=== PATIENT | male | born 1945 | race Caucasian/White ===

== ENCOUNTER 2018-08-08 13:27 | Inpatient (IN) | payer MEDICARE ==
[2018-08-08] MEDS ORDERED: ASPIRIN 81 MG TABLET, CHEWABLE PO ONE (13:57)
--- NOTE | 2018-08-08 13:59 | ER Document Report ---
ED General - General Mode of Arrival: Medic Information source: Patient TRAVEL OUTSIDE OF THE [place] IN LAST 30 DAYS: No <RANDALL COHEN - Last Filed: 08/08/18 15:01> <ALOK MILLAN - Last Filed: 08/08/18 20:05> - General Chief Complaint: Shortness Of Breath Stated Complaint: SHORTNESS OF BREATH Time Seen by Provider: 08/08/18 13:57 Notes: 73-year-old male who presents to the emergency department today with complaints of a 2-month history of generalized swelling with associated shortness of breath over the last 3-4 weeks. Patient states he has gained approximately 40 pounds over the last 2 months. Patient states x1 month ago he was started on Lasix and potassium. Patient states he has swelling from his feet up to his abdomen and he has noticed that his scrotum has "swollen to the size of a grapefruit". Patient states he has had diarrhea, abdominal pain, and hand swelling as well. Patient mentions that he has not had an appetite in the last few weeks. Patient denies any vomiting, cough, fevers, history of COPD or liver failure. (RANDALL COHEN) - Related Data Allergies/Adverse Reactions: amoxicillin [From Augmentin] Adverse Reaction (Mild, Verified 08/08/18 15:35) Nausea clavulanic acid [From Augmentin] Adverse Reaction (Mild, Verified 08/08/18 15:35) Nausea Past Medical History - General Information source: Patient - Social History Smoking Status: Never Smoker Cigarette use (# per day): No Frequency of alcohol use: None Drug Abuse: None Lives with: Family Family History: Reviewed & Not Pertinent - Past Medical History Cardiac Medical History: Reports: Hx Congestive Heart Failure Endocrine Medical History: Reports: Hx Diabetes Mellitus Type 2 Surgical Hx: Negative <RANDALL COHEN - Last Filed: 08/08/18 15:01> Review of Systems - Review of Systems Constitutional: denies: Fever EENT: No symptoms reported Cardiovascular: No symptoms reported Respiratory: See HPI, Short of breath. denies: Cough Gastrointestinal: See HPI, Abdominal pain, Diarrhea, Other - abdominal swelling. denies: Vomiting Genitourinary: No symptoms reported Male Genitourinary: See HPI, Other - testicular swelling Musculoskeletal: See HPI, Leg swelling, Ankle swelling, Other - hand swelling Skin: No symptoms reported Hematologic/Lymphatic: No symptoms reported Neurological/Psychological: No symptoms reported -: Yes All other systems reviewed and negative <RANDALL COHEN - Last Filed: 08/08/18 15:01> Physical Exam <RANDALL COHEN - Last Filed: 08/08/18 15:01> - Vital signs Vitals: Pulse Ox 73 L 08/08/18 13:35 - Notes Notes: PHYSICAL EXAM GENERAL: Alert, interacts well. Appears short of breath. Morbidly obese. HEAD: Normocephalic, atraumatic. EYES: Pupils equal, round, and reactive to light. Extraocular movements intact. ENT: Oral mucosa moist, tongue midline. NECK: Full range of motion. Supple. Trachea midline. LUNGS: Clear to auscultation bilaterally, no wheezes, rales, or rhonchi. No respiratory distress. Saturating at 90% via facemask on 15L of oxygen, good waveform, hypoxic per my interpretation. HEART: Very faint heart sounds due to body habitus. Regular rate and rhythm. No murmurs, gallops, or rubs. Capillary refill in the finger tips is 9 seconds, fingers are cold to the touch. ABDOMEN: Soft, mild diffuse generalized tenderness with palpation with no focal areas of increased tenderness. No caput medusea. Lower abdominal pitting edema, no upper abdomen edema. Small fluid wave. Bowel sounds present in all 4 quadrants. No guarding, rigidity, or rebound. EXTREMITIES: Moves all 4 extremities spontaneously. 4+ pitting edema to bilateral lower extremities up to the level of the knees, fluid seepage from lower extrmities bilaterally, radial and dorsalis pedis pulses 2/4 bilaterally. NEUROLOGICAL: Alert and oriented x3. Normal speech. PSYCH: Normal affect, normal mood. SKIN: Finger tips are cold to the touch, dry, normal turgor. No rashes or lesions noted. (RANDALL COHEN) Course - Laboratory Result Diagrams: 08/08/18 13:52 08/08/18 13:52 <RANDALL COHEN - Last Filed: 08/08/18 15:01> - Laboratory Result Diagrams: 08/08/18 13:52 08/08/18 13:52 <ALOK MILLAN - Last Filed: 08/08/18 20:05> - Re-evaluation Re-evalutation: 08/08/18 19:59 Patient was acutely short of breath and hypoxic and in respiratory distress on arrival, physical examination consistent with congestive heart failure, patient was placed on BiPAP and felt much better, is tolerating this well. Patient has laboratory findings consistent with acute liver failure, right-sided heart failure and septic shock, patient was given fluid boluses based off of ideal body weight of 73 kg for fluid goal of 2190 mL's. Given the fact that he was in significant congestive heart failure we did give these boluses slowly. CBC showed leukocytosis of 10.9, hemoglobin was 18.6, platelets normal at 205, INR was prolonged consistent with liver failure, venous blood gas showed acidosis with a pH of 7.21, initial laboratory studies on the chemistries showed hypokalemia with pH of 6.8 consistent with the QRS widening on his EKG, there was acute renal failure with a BUN of 63 and a creatinine of 1.96, patient's hyperkalemia is likely coming from the renal failure and the exogenous potassium he has been taking along with his Lasix, patient was treated with bicarb, calcium gluconate, glucose and insulin and fluids. Repeat BMP is pending. Lactic acid is elevated at 5.3, Zosyn was started, blood cultures were obtained, total bilirubin is 5.6, direct bilirubin is 3.2, AST and ALT are both elevated at 813 and 600 respectively, proBNP markedly elevated at 23,400. Troponin negative at 0.037. I did order a CT scan of the abdomen pelvis to look for signs of blocked bile ducts. This confirmed the pneumonia seen on CAT scan with large pleural effusion as well as anasarca and upper abdominal ascites but did not show any evidence of acute intra-abdominal pathology. Initial EKG showed widening of the QRS and other changes concerning for hyperkalemia, repeat EKG after potassium was treated has showed some narrowing of the QRS. (ALOK MILLAN) - Vital Signs Vital signs: Temp Pulse Resp BP Pulse Ox 98.4 F 18 122/86 H 97 08/08/18 18:00 08/08/18 19:01 08/08/18 19:01 08/08/18 19:00 - Laboratory Laboratory results interpreted by me: 08/08/18 08/08/18 08/08/18 13:52 13:52 13:52 WBC 10.9 H RBC 6.53 H Hgb 18.6 H Hct 58.4 H MCHC 31.9 L RDW 15.6 H Seg Neutrophils % 84.6 H Lymphocytes % 6.7 L Absolute Neutrophils 9.2 H PT 23.8 H VBG pH VBG HCO3 Sodium 134.3 L Potassium 6.8 H* Carbon Dioxide 18 L BUN 63 H Creatinine 1.96 H Est GFR ( Amer) 41 L Est GFR (Non-Af Amer) 34 L Glucose 221 H POC Glucose Lactic Acid Total Bilirubin 5.6 H Direct Bilirubin 3.2 H AST 813 H ALT 600 H NT-Pro-B Natriuret Pep Free T4 Free T3 pg/mL 08/08/18 08/08/18 08/08/18 13:52 13:52 13:52 WBC RBC Hgb Hct MCHC RDW Seg Neutrophils % Lymphocytes % Absolute Neutrophils PT VBG pH 7.21 L VBG HCO3 18.6 L Sodium Potassium Carbon Dioxide BUN Creatinine Est GFR ( Amer) Est GFR (Non-Af Amer) Glucose POC Glucose Lactic Acid 5.3 H Total Bilirubin Direct Bilirubin AST ALT NT-Pro-B Natriuret Pep Free T4 2.76 H Free T3 pg/mL 2.38 L 08/08/18 08/08/18 08/08/18 15:08 15:50 17:04 WBC RBC Hgb Hct MCHC RDW Seg Neutrophils % Lymphocytes % Absolute Neutrophils PT VBG pH VBG HCO3 Sodium Potassium Carbon Dioxide BUN Creatinine Est GFR ( Amer) Est GFR (Non-Af Amer) Glucose POC Glucose 192 H 224 H Lactic Acid Total Bilirubin Direct Bilirubin AST ALT NT-Pro-B Natriuret Pep 12774 H Free T4 Free T3 pg/mL - EKG Interpretation by Me Additional EKG results interpreted by me: 08/08/18 20:03 EKG shows sinus tachycardia at a rate of 110, first-degree AV block, interv entricular conduction delay, concerning for possible left bundle branch block, do not believe she has a STEMI, per my interpretation. 08/08/18 20:03 Repeat EKG shows sinus tachycardia at a rate of 101, QRS has narrowed, there is an interventricular conduction delay, poor R wave progression, again concerning for possible incomplete left bundle branch block, no STEMI per my interpretation. (ALOK MILLAN) Discharge <RANDALL COHEN - Last Filed: 08/08/18 15:01> - Discharge Admitting Provider: Hospitalist - [facility] Unit Admitted: [facility] <ALOK MILLAN - Last Filed: 08/08/18 20:05> - Discharge Clinical Impression: Acute respiratory failure with hypoxia, Hyperkalemia Congestive heart failure Qualifiers: Heart failure type: right-sided Heart failure chronicity: acute Qualified Code(s): I50.811 - Acute right heart failure Liver failure without hepatic coma Qualifiers: Liver failure chronicity: acute Qualified Code(s): K72.00 - Acute and subacute hepatic failure without coma Acute renal failure Qualifiers: Acute renal failure type: unspecified Qualified Code(s): N17.9 - Acute kidney failure, unspecified Left lower lobe pneumonia Qualifiers: Pneumonia type: due to unspecified organism Qualified Code(s): J18.1 - Lobar pneumonia, unspecified organism Sepsis Qualifiers: Sepsis type: sepsis due to unspecified organism Qualified Code(s): A41.9 - Sepsis, unspecified organism Condition: Serious Disposition: ADMITTED INPATIENT Scribe Attestation: 08/08/18 20:04 I personally performed the services described in the documentation, reviewed and edited the documentation which was dictated to the scribe in my presence, and it accurately records my words and actions. (ALOK MILLAN) Scribe Documentation - Scribe Written by Pepe:: Pepe Noriega, 08/08/2018 1525 acting as scribe for :: Yonatan <RANDALL COHEN - Last Filed: 08/08/18 15:01> Sepsis - Sepsis Documentation Sepsis Patient: Yes - Vital Signs Interpretation: Bradycardic, Other - Heart rate is bradycardic at a rate of 46. - Cardiovascular Peripheral Pulse Strength: Weak Capillary refill: > 3 seconds - 6 seconds Rhythm: Regular Heart Sounds: Normal auscultation - Respiratory Breath Sounds: Crackle Respiratory Status: Respiratory distress - Skin Skin Color: Normal <ALOK MILLAN - Last Filed: 08/08/18 20:05> - Vital Signs Vitals: Temp Pulse Resp BP Pulse Ox 98.4 F 18 122/86 H 97 08/08/18 18:00 08/08/18 19:01 08/08/18 19:01 08/08/18 19:00
[2018-08-08 14:18] LABS: ABSOLUTE LYMPHOCYTES (AUTO) 0.7 10^3/uL (0.5-4.7); ABSOLUTE MONOCYTES (AUTO) 0.9 10^3/uL (0.1-1.4); ABSOLUTE NEUT (AUTO) 9.2 10^3/uL (1.7-8.2); BASOPHILS % (AUTO) 0.2 % (0-2); HEMOGLOBIN 18.6 g/dL (13.5-17.0); LYMPHOCYTES % (AUTO) 6.7 % (13-45); MEAN CORPUSCULAR HEMOGLOBIN 28.5 pg (27.0-33.4); MEAN CORPUSCULAR HGB CONC 31.9 g/dL (32.0-36.0); MEAN CORPUSCULAR VOLUME 90 fl (80-97); MONOCYTES % (AUTO) 8.5 % (3-13); PLATELET COUNT 205 10^3/uL (150-450); RED BLOOD COUNT 6.53 10^6/uL (4.35-5.55); RED CELL DISTRIBUTION WIDTH 15.6 % (11.5-14.0); SEGMENTED NEUTROPHILS % (AUTO) 84.6 % (42-78); TOTAL CELLS COUNTED % (AUTO) 100 %; WHITE BLOOD COUNT 10.9 10^3/uL (4.0-10.5)
[2018-08-08 14:19] LABS: HEMATOCRIT 58.4 % (37.9-51.0); VENOUS BLOOD BASE EXCESS -9.4 mmol/L; VENOUS BLOOD HCO3 18.6 mmol/L (20-32); VENOUS BLOOD PCO2 47.4 mmHg (35-63); VENOUS BLOOD PH 7.21 (7.30-7.42)
[2018-08-08 14:28] LABS: ALANINE AMINOTRANSFERASE 600 U/L (21-72); ALBUMIN 3.9 g/dL (3.5-5.0); ALKALINE PHOSPHATASE 92 U/L (38-126); ANION GAP 18 (5-19); BILIRUBIN,DIRECT 3.2 mg/dL (0.0-0.4); BILIRUBIN,TOTAL 5.6 mg/dL (0.2-1.3); BLOOD UREA NITROGEN 63 mg/dL (7-20); CALCIUM 9.3 mg/dL (8.4-10.2); CARBON DIOXIDE 18 mmol/L (22-30); CHLORIDE 98 mmol/L (98-107); CREATINE KINASE 85 U/L (55-170); GLUCOSE 221 mg/dL (75-110); SODIUM 134.3 mmol/L (137-145)
[2018-08-08 14:36] LABS: ASPARTATE AMINO TRANSFERASE 813 U/L (17-59)
[2018-08-08 14:37] LABS: POTASSIUM 6.8 mmol/L (3.6-5.0)
[2018-08-08] MEDS ORDERED: CALCIUM GLUCONATE 1000 MG/10 ML INJ IV ONE ×2 (14:40→23:09)
[2018-08-08] MEDS ORDERED: PIPERACILLIN/TAZOBACTAM 3.375 GM VIAL IV ONE (14:41)
[2018-08-08] MEDS ORDERED: SODIUM BICARBONATE 8.4% INJ 50 MEQ/50 ML DISP.SYRIN IV ONE (14:41)
[2018-08-08] MEDS ORDERED: DEXTROSE 10%-WATER 1,000 ML IV ONE (14:41)
[2018-08-08] MEDS ORDERED: INSULIN REG, HUMAN 100 UNIT/ML 3 ML VIAL (PYX) SUBCUT ONE (14:41)
[2018-08-08] MEDS ORDERED: DEXTROSE 5%-NORMAL SALINE 1,000 ML IV ONE (14:42)
[2018-08-08 14:45] LABS: FREE T4 (FREE THYROXINE) 2.76 ng/dL (0.78-2.19)
[2018-08-08 14:46] LABS: FREE T3 2.38 pg/mL (2.77-5.27)
[2018-08-08 14:47] LABS: TROPONIN I 0.037 ng/mL
--- NOTE | 2018-08-08 14:52 | RADIOLOGY REPORT (SQ) ---
EXAM DESCRIPTION: CHEST SINGLE VIEW COMPLETED DATE/TIME: 08/08/2018 2:43 pm REASON FOR STUDY: SOB, hypoxia COMPARISON: None. EXAM PARAMETERS: NUMBER OF VIEWS: One view. TECHNIQUE: Single frontal radiographic view of the chest acquired. RADIATION DOSE: NA LIMITATIONS: None. FINDINGS: LUNGS AND PLEURA: Moderate left pleural effusion with associated atelectasis or consolidat ion. MEDIASTINUM AND HILAR STRUCTURES: No masses. Contour normal. HEART AND VASCULAR STRUCTURES: Cardiomegaly. BONES: No acute findings. HARDWARE: None in the chest. OTHER: No other significant finding. IMPRESSION: 1. Moderate left pleural effusion with associated atelectasis or consolidation. Underly ing mass is not excluded. Consider CT if further evaluate as indicated by clinical concern. [place] [facility] [place] if infection is the primary differential consideration, recommend follow-up radiographs in 6 to 8 weeks to ensure complete resolution. 2. Cardiomegaly. TECHNICAL DOCUMENTATION: JOB ID: [id number] [employer]- All Rights Reserved Reading location - IP/workstation name: [email or web address]
[2018-08-08 14:58] LABS: THYROID STIMULATING HORMONE 3.16 uIU/mL (0.47-4.68)
[2018-08-08 16:10] LABS: INTERNATIONAL RATION (INR) 2.01; PROTHROMBIN TIME 23.8 SEC (11.4-15.4)
[2018-08-08] MEDS ORDERED: SODIUM POLYSTYRENE SULFONATE 15 GM/60 ML PO ONE ×2 (16:44→19:58)
--- NOTE | 2018-08-08 17:53 | RADIOLOGY REPORT (SQ) ---
EXAM DESCRIPTION: CT ABD/PELVIS WITH IV ONLY COMPLETED DATE/TIME: 08/08/2018 5:40 pm REASON FOR STUDY: elevated LFTs, sepsis, no source COMPARISON: None. TECHNIQUE: CT scan of the abdomen and pelvis performed using helical scanning technique with dynamic intravenous contrast injection. No oral contrast. Images reviewed with lung, soft tissue, and bone windows. Reconstructed coronal and sagittal MPR images reviewed. Delayed images for evaluation of the urinary system also acquired. All images stored on PACS. All CT scanners at this facility use dose modulation, iterative reconstruction, and/or weight based d osing when appropriate to reduce radiation dose to as low as reasonably achievable (ALARA). [facility]: Dose Right [facility]: CareDose [facility]: Dose Right [facility]: Teradose 4D [facility]: [employer] CONTRAST TYPE AND DOSE: contrast/concentration: Isovue 300.00 mg/ml; Total Contrast Delivered: 98.0 ml; Total Saline Delivered: 69.0 ml RENAL FUNCTION: Creatinine 1.96 RADIATION DOSE: CT Rad equipment meets quality standard of care and radiation dose reduction techniq ues were employed. CTDIvol: 21.1 mGy. DLP: 2796 mGy-cm.. LIMITATIONS: None. FINDINGS: LOWER CHEST: Large bilateral pleural effusions. LIVER: Normal size. No masses. No dilated ducts. Portal vein, splenic vein, IMV with minimal contra st. SPLEEN: Normal size. No focal lesions. PANCREAS: No masses. No significant calcifications. No adjacent inflammation or peripancreatic fluid collections. Pancreatic duct not dilated. GALLBLADDER: No identified stones by CT criteria. No inflammatory changes to suggest cholecystitis. ADRENAL GLANDS: No significant masses or asymmetry. RIGHT KIDNEY AND URETER: No solid masses. No significant calcifications. No hydronephrosis or hyd roureter. LEFT KIDNEY AND URETER: No solid masses. No significant calcifications. No hydronephrosis or hydr oureter. AORTA AND VESSELS: No aneurysm. No dissection. Renal arteries, SMA, celiac without stenosis. RETROPERITONEUM: No retroperitoneal adenopathy, hemorrhage or masses. BOWEL AND PERITONEAL CAVITY: No inflammatory changes. Mild predominantly upper abdominal ascites. APPENDIX: Not visualized. PELVIS: No mass. No free fluid. Normal bladder. ABDOMINAL WALL: Marked anasarca. BONES: Degenerative change OTHER: No other significant finding. IMPRESSION: Large bilateral pleural effusions. Upper abdominal ascites. Marked anasarca. Minimal contrast seen in the portal vein, SMV, splenic vein. Possibly related to timing and right he art failure. TECHNICAL DOCUMENTATION: JOB ID: [id number] Quality ID # [id number]: Final reports with documentation of one or more dose reduction techniques (e.g., Au tomated exposure control, adjustment of the mA and/or kV according to patient size, use of iterative reconstruction technique) 2010 [employer]- All Rights Reserved Reading location - IP/workstation name: [email or web address]
--- NOTE | 2018-08-08 18:09 | EKG REPORT ---
SEVERITY:- ABNORMAL ECG - WIDE COMPLEX TACHYCARDIA NONSPECIFIC IVCD WITH LAD : Confirmed by: Skinny Dang MD 08-Aug-2018 18:08:43
--- NOTE | 2018-08-08 18:11 | EKG REPORT ---
SEVERITY:- ABNORMAL ECG - SINUS TACHYCARDIA FIRST DEGREE AV BLOCK NONSPECIFIC INTRAVENTRICULAR CONDUCTION DELAY EXTENSIVE ANTERIOR INFARCT, AGE UNDETERMINED, NO OLD EKG FOR COMPARISON, CLINICAL CORRELATION NEEDED. : Confirmed by: Skinny aDng MD 08-Aug-2018 18:10:11
[2018-08-08] MEDS ORDERED: ACETAMINOPHEN 325 MG TABLET PO PRN (19:02)
[2018-08-08] MEDS ORDERED: ALBUTEROL SULFATE 0.083% NEB 2.5 MG/3 ML AMPUL NEB PRN (19:02)
[2018-08-08] MEDS ORDERED: DEXTROSE 50%-WATER 25 GM/50 ML DISP.SYRIN IV PRN ×2 (19:36)
[2018-08-08] MEDS ORDERED: DEXTROSE 40% GEL 15 GM TUBE PO PRN ×2 (19:36)
[2018-08-08] MEDS ORDERED: GLUCAGON,HUMAN RECOMB 1 MG INJ IM PRN (19:36)
[2018-08-08] MEDS ORDERED: CALCIUM GLUCONATE 1,000 MG in DEXTROSE 5%-WATER 50 ML IV ONE (19:58)
[2018-08-08] MEDS ORDERED: FUROSEMIDE INJ/PF 40 MG/4 ML SDV IV ONE (20:00)
--- NOTE | 2018-08-08 20:09 | PDOC H&P ---
History of Present Illness Admission Date/PCP: JOAQUIN GOTTLIEB MD Patient complains of: Worsening shortness of breath. Marked weight gain with increased swelling over the last several months History of Present Illness: RONALDO GALVAN is a 73 year old male who reports that he has noticed slowly increasing edema and worsening of his breathing over the last 6-8 weeks. He reports a 30-40 pound weight gain over the same period. His legs weep fluid. They are slightly reddened. He has pitting edema up into the torso. He denies any history of cardiac disease. He is on Lasix for hypertension and diuretic therapy. He has never been told of a diagnosis of congestive heart failure. In addition he has never been told that he has any problems with his liver or kidneys. He has acute failure of both. In general he has been slowly feeling more poorly as noted above. Past Medical History Cardiac Medical History: Reports: Congestive Heart Failure, Peripheral Vascular Disease - Likely related to diabetes. Right hallux amputation. Pulmonary Medical History: Denies: Chronic Obstructive Pulmonary Disease (COPD), Intubation, Respiratory Failure, Sleep Apnea EENT Medical History: Denies: Cataracts, Ears, Nose Neurological Medical History: Denies: Hemorrhagic CVA, Ischemic CVA, Migraine Endocrine Medical History: Reports: Diabetes Mellitus Type 2 Malignancy Medical History: Reports: None GI Medical History: Denies: Cirrhosis, Diverticulitis, Gastroesophageal Reflux Disease, Hepatitis, Hiatal Hernia Musculoskeltal Medical History: Denies: Fibromyalgia, Gout Skin Medical History: Reports: Other - Chronic stasis dermatitis lower extremities Denies: Psoriasis Psychiatric Medical History: Reports: Depression Traumatic Medical History: Reports: None Hematology: Reports: None Infectious Medical History: Reports: None Past Surgical History Past Surgical History: Reports: Orthopedic Surgery - Amputation right hallux Social History Information Source: Patient Lives with: Family, Spouse/Significant other Smoking Status: Never Smoker Frequency of Alcohol Use: Occasional Hx Recreational Drug Use: No Drugs: None Hx Prescription Drug Abuse: No Past Social History Note: Retired - [employer] Directive Resuscitation Status: Full Code Surrogate healthcare decision maker:: Although the patient does not have formal healthcare proxy paperwork filed his Joselo Galvan is the designated decision maker in the event of the patient's incapacity. Family History Family History: Reviewed & Not Pertinent Parental Family History Reviewed: Yes - Patient is adopted and does not know any parental medical history Children Family History Reviewed: NA - 1 adopted son Sibling(s) Family History Reviewed.: NA - No known siblings Medication/Allergy Allergies/Adverse Reactions: amoxicillin [From Augmentin] Adverse Reaction (Mild, Verified 08/08/18 15:35) Nausea clavulanic acid [From Augmentin] Adverse Reaction (Mild, Verified 08/08/18 15:35) Nausea Review of Systems Constitutional: PRESENT: as per HPI Eyes: ABSENT: visual disturbances Ears: ABSENT: hearing changes Nose, Mouth, and Throat: ABSENT: headache(s), mouth pain, sore throat Cardiovascular: PRESENT: dyspnea on exertion, edema, orthropnea, other - Both legs weeping fluid. ABSENT: chest pain Respiratory: PRESENT: dyspnea. ABSENT: cough, hemoptysis, sputum Gastrointestinal: PRESENT: diarrhea - Occasional. ABSENT: abdominal pain, coffee ground emesis, nausea, vomiting Genitourinary: ABSENT: dysuria, hematuria, nocturia Integumentary: PRESENT: rash - Chronic stasis dermatitis Neurological: ABSENT: abnormal gait, abnormal speech, confusion, memory loss, syncope Psychiatric: PRESENT: as per HPI Endocrine: PRESENT: other - Diabetes Hematologic/Lymphatic: ABSENT: easy bleeding, easy bruising Allergic/Immunologic: ABSENT: seasonal rhinorrhea Physical Exam Vital Signs: Temp Pulse Resp BP Pulse Ox 98.4 F 18 122/86 H 97 08/08/18 18:00 08/08/18 19:01 08/08/18 19:01 08/08/18 19:00 Intake & Output 08/07/18 08/08/18 08/09/18 06:59 06:59 06:59 Intake Total 792 Balance 792 Weight 142.882 kg General appearance: PRESENT: cooperative, morbidly obese - BMI 45, well- developed, other - Moderate respiratory distress. Wearing BiPAP. Head exam: PRESENT: atraumatic, normocephalic Eye exam: PRESENT: conjunctiva pink, EOMI, scleral icterus Ear exam: PRESENT: normal external ear exam Mouth exam: PRESENT: other - Unable to assess on BiPAP Teeth exam: PRESENT: other - Unable to assess on BiPAP Throat exam: PRESENT: other - Unable to assess on BiPAP Neck exam: ABSENT: carotid bruit, lymphadenopathy, tenderness Respiratory exam: PRESENT: decreased breath sounds, symmetrical. ABSENT: accessory muscle use, prolonged expiratory phas, rhonchi, wheezes Cardiovascular exam: PRESENT: RRR, +S1, +S2 GI/Abdominal exam: PRESENT: distended - Markedly protuberant abdomen, normal bowel sounds, soft. ABSENT: guarding, tenderness Extremities exam: PRESENT: +2 edema - Through the torso Neurological exam: PRESENT: alert, awake, oriented to person, oriented to place, oriented to time, oriented to situation, CN II-XII grossly intact Psychiatric exam: PRESENT: appropriate affect, normal mood. ABSENT: agitated, anxious Focused psych exam: ABSENT: restlessness Skin exam: PRESENT: erythema, other - Weeping Results Laboratory Results: 08/08/18 13:52 08/08/18 18:05 08/08/18 08/08/18 08/08/18 13:52 13:52 13:52 WBC 10.9 H RBC 6.53 H Hgb 18.6 H Hct 58.4 H MCV 90 MCH 28.5 MCHC 31.9 L RDW 15.6 H Plt Count 205 Seg Neutrophils % 84.6 H Lymphocytes % 6.7 L Monocytes % 8.5 Eosinophils % 0.0 Basophils % 0.2 Absolute Neutrophils 9.2 H Absolute Lymphocytes 0.7 Absolute Monocytes 0.9 Absolute Eosinophils 0.0 Absolute Basophils 0.0 VBG pH VBG pCO2 VBG HCO3 VBG Base Excess Sodium 134.3 L Potassium 6.8 H* Chloride 98 Carbon Dioxide 18 L Anion Gap 18 BUN 63 H Creatinine 1.96 H Est GFR ( Amer) 41 L Est GFR (Non-Af Amer) 34 L Glucose 221 H Lactic Acid 5.3 H Calcium 9.3 Total Bilirubin 5.6 H AST 813 H ALT 600 H Alkaline Phosphatase 92 Total Protein 7.0 Albumin 3.9 TSH Free T4 Free T3 pg/mL 08/08/18 08/08/18 08/08/18 13:52 13:52 15:50 WBC RBC Hgb Hct MCV MCH MCHC RDW Plt Count Seg Neutrophils % Lymphocytes % Monocytes % Eosinophils % Basophils % Absolute Neutrophils Absolute Lymphocytes Absolute Monocytes Absolute Eosinophils Absolute Basophils VBG pH 7.21 L VBG pCO2 47.4 VBG HCO3 18.6 L VBG Base Excess -9.4 Sodium Cancelled Potassium Cancelled Chloride Cancelled Carbon Dioxide Cancelled Anion Gap Cancelled BUN Cancelled Creatinine Cancelled Est GFR ( Amer) Cancelled Est GFR (Non-Af Amer) Cancelled Glucose Cancelled Lactic Acid Calcium Cancelled Total Bilirubin AST ALT Alkaline Phosphatase Total Protein Albumin TSH 3.16 Free T4 2.76 H Free T3 pg/mL 2.38 L 08/08/18 18:05 WBC RBC Hgb Hct MCV MCH MCHC RDW Plt Count Seg Neutrophils % Lymphocytes % Monocytes % Eosinophils % Basophils % Absolute Neutrophils Absolute Lymphocytes Absolute Monocytes Absolute Eosinophils Absolute Basophils VBG pH VBG pCO2 VBG HCO3 VBG Base Excess Sodium Cancelled Potassium Cancelled Chloride Cancelled Carbon Dioxide Cancelled Anion Gap Cancelled BUN Cancelled Creatinine Cancelled Est GFR ( Amer) Cancelled Est GFR (Non-Af Amer) Cancelled Glucose Cancelled Lactic Acid Calcium Cancelled Total Bilirubin AST ALT Alkaline Phosphatase Total Protein Albumin TSH Free T4 Free T3 pg/mL 08/08/18 08/08/18 08/08/18 13:52 13:52 15:50 Creatine Kinase 85 CK-MB (CK-2) 3.00 Troponin I 0.037 NT-Pro-B Natriuret Pep [id number] H Impressions: Chest X-Ray 08/08/18 13:58 IMPRESSION: 1. Moderate left pleural effusion with associated atelectasis or consolidation. Underlying mass is not excluded. Consider CT if further evaluate as indicated by clinical concern. At minimum, if infection is the primary differential consideration, recommend follow-up radiographs in 6 to 8 weeks to ensure complete resolution. 2. Cardiomegaly. Abdomen/Pelvis CT 08/08/18 15:27 IMPRESSION: Large bilateral pleural effusions. Upper abdominal ascites. Marked anasarca. Minimal contrast seen in the portal vein, SMV, splenic vein. Possibly related to timing and right heart failure. Assessment & Plan - Diagnosis (1) Congestive heart failure Qualifiers: Heart failure type: right-sided Heart failure chronicity: acute Qualified Code(s): I50.811 - Acute right heart failure Is this a current diagnosis for this admission?: Yes Plan: The patient was unaware of her previous diagnosis of congestive heart failure. He has never had an echocardiogram. He has marked anasarca. He has bilateral pleural effusions. I will diuresis with furosemide and Zaroxolyn. We will need to monitor his kidney function. His albumin is normal so there is no need for IV albumin. I have ordered an echocardiogram to assess his cardiac function. He may have cardiomyopathy related to his diabetes. (2) Acute respiratory failure with hypoxia Is this a current diagnosis for this admission?: Yes Plan: The patient does not carry a diagnosis of chronic obstructive pulmonary disease. His acute respiratory failure required BiPAP. It is most likely cardiogenic. (3) Acute renal failure Qualifiers: Acute renal failure type: unspecified Qualified Code(s): N17.9 - Acute kidney failure, unspecified Is this a current diagnosis for this admission?: Yes Plan: The patient's BUN and creatinine are elevated. His estimated GFR is only 34. He does not report any history of kidney disease. We will need to watch his kidney function while diuresing the patient. I will consult nephrology if his GFR declines. He did have a CT scan of the abdomen. It revealed normal renal structure. (4) Liver failure without hepatic coma Qualifiers: Liver failure chronicity: acute Qualified Code(s): K72.00 - Acute and subacute hepatic failure without coma Is this a current diagnosis for this admission?: Yes Plan: The patient's transaminases and bilirubin are elevated. He reports 1 beer on Sundays. We will monitor his transaminases. He does not have a markedly elevated prothrombin time. No structural abnormality was noted by CT scan. No obstructive lesions with regard to gallbladder or pancreas. (5) Left lower lobe pneumonia Qualifiers: Pneumonia type: due to unspecified organism Qualified Code(s): J18.1 - Lobar pneumonia, unspecified organism Is this a current diagnosis for this admission?: Yes Plan: With the pleural effusion it is difficult to characterize an underlying pneumonia but it would be a possible etiology for the pleural effusion. We will continue antibiotic therapy at this time. If he does not exhibit fever or increased white blood cell count we will discontinue antibiotic therapy. He does not report a productive cough. (6) Hyperkalemia Is this a current diagnosis for this admission?: Yes Plan: The patient presented with marked hyperkalemia. He was on a potassium supplement and unaware of his kidney failure. He was treated aggressively in the emergency department with insulin and glucose, calcium and bicarbonate. Repeat labs are pending. (7) Diabetes mellitus type 2 with complications Qualifiers: Diabetes mellitus shelter insulin use: with computer terminal operator use Qualified Code(s): E11.8 - Type 2 diabetes mellitus with unspecified complications; Z79.4 - computer terminal operator (current) use of insulin Is this a current diagnosis for this admission?: Yes Plan: The patient likely has kidney injury diabetes related cardiac dysfunction. He denies peripheral vascular disease but has already had a right hallux amputation. His feet were cool to the touch. It is hard to note if it is peripheral arterial disease or more likely mixed vascular disease. He was on metformin. I have discontinued the metformin at this time. He will be placed on a Humalog sliding scale and we will continue his insulin therapy. - Time Time Spent: Greater than 70 Minutes Medications reviewed and adjusted accordingly: Yes Anticipated discharge: Home - Inpatient Certification Based on my medical assessment, after consideration of the patient's comorbidities, presenting symptoms, or acuity I expect that the services needed warrant INPATIENT care.: Yes I certify that my determination is in accordance with my understanding of Medicare's requirements for reasonable and necessary INPATIENT services [42 CFR 412.3e].: Yes Medical Necessity: Significant Comorbidiites Make Outpatient Treatment Too Risky, Need Close Monitoring Due to Risk of Patient Decompensation, Need For Continuous Telemetry Monitoring, Need for IV Antibiotics, Risk of Complication if Not Cared For in Hospital Post Hospital Care: D/C Surgical Lead Documentation
[2018-08-08 21:16] LABS: ANION GAP 9 (5-19); BLOOD UREA NITROGEN 63 mg/dL (7-20); CARBON DIOXIDE 23 mmol/L (22-30); CHLORIDE 103 mmol/L (98-107); GLUCOSE 252 mg/dL (75-110); SODIUM 134.7 mmol/L (137-145)
[2018-08-08 21:23] LABS: POTASSIUM 5.4 mmol/L (3.6-5.0)
[2018-08-09] MEDS ORDERED: SODIUM POLYSTYRENE SULFONATE 15 GM/60 ML ONE ×2 (00:02→00:16)
[2018-08-09] MEDS: FAMOTIDINE 20 MG TABLET PO SCH ×3 (00:15→21:49)
[2018-08-09 03:23] LABS: ABSOLUTE LYMPHOCYTES (AUTO) 0.6 10^3/uL (0.5-4.7); ABSOLUTE MONOCYTES (AUTO) 0.7 10^3/uL (0.1-1.4); BASOPHILS % (AUTO) 0.3 % (0-2); EOSINOPHILS % (AUTO) 0.2 % (0-6); HEMATOCRIT 50.8 % (37.9-51.0); HEMOGLOBIN 16.6 g/dL (13.5-17.0); LYMPHOCYTES % (AUTO) 7.6 % (13-45); MEAN CORPUSCULAR HEMOGLOBIN 28.7 pg (27.0-33.4); MEAN CORPUSCULAR HGB CONC 32.7 g/dL (32.0-36.0); MEAN CORPUSCULAR VOLUME 88 fl (80-97); MONOCYTES % (AUTO) 8.6 % (3-13); PLATELET COUNT 139 10^3/uL (150-450); RED CELL DISTRIBUTION WIDTH 15.1 % (11.5-14.0); SEGMENTED NEUTROPHILS % (AUTO) 83.3 % (42-78); TOTAL CELLS COUNTED % (AUTO) 100 %; WHITE BLOOD COUNT 8.4 10^3/uL (4.0-10.5)
[2018-08-09 03:50] LABS: ALANINE AMINOTRANSFERASE 684 U/L (21-72); ALBUMIN 2.6 g/dL (3.5-5.0); ALKALINE PHOSPHATASE 69 U/L (38-126); ANION GAP 10 (5-19); BILIRUBIN,TOTAL 3.5 mg/dL (0.2-1.3); BLOOD UREA NITROGEN 66 mg/dL (7-20); CALCIUM 8.6 mg/dL (8.4-10.2); CARBON DIOXIDE 20 mmol/L (22-30); CHLORIDE 106 mmol/L (98-107); CHOLESTEROL 114.91 mg/dL (0-200); GLUCOSE 241 mg/dL (75-110); PHOSPHORUS 5.6 mg/dL (2.5-4.5); POTASSIUM 5.2 mmol/L (3.6-5.0); SODIUM 135.6 mmol/L (137-145); TOTAL PROTEIN 5.2 g/dL (6.3-8.2); TRIGLYCERIDES 96 mg/dL (<150)
[2018-08-09 04:01] LABS: DIRECT LDL 99 mg/dL (<100)
[2018-08-09 04:02] LABS: ASPARTATE AMINO TRANSFERASE 992 U/L (17-59)
[2018-08-09 06:42] LABS: APPEARANCE,URINE CLEAR; BILIRUBIN,URINE NEGATIVE (NEGATIVE); GLUCOSE, URINE NEGATIVE (NEGATIVE); KETONES,URINE NEGATIVE (NEGATIVE); LEUKOCYTE ESTERASE,URINE NEGATIVE (NEGATIVE); NITRITE,URINE NEGATIVE (NEGATIVE); PROTEIN,URINE NEGATIVE (NEGATIVE); URINE SPECIFIC GRAVITY 1.019; UROBILINOGEN,URINE NEGATIVE mg/dL (<2.0)
[2018-08-09 06:43] LABS: COLOR,URINE YELLOW
--- NOTE | 2018-08-09 07:36 | EKG REPORT ---
SEVERITY:- ABNORMAL ECG - SINUS TACHYCARDIA WITH FIRST DEGREE AVB. VENTRICULAR ECTOPY NONSPECIFIC IVCD WITH LAD CONSIDER INFERIOR INFARCT EXTENSIVE ANTERIOR INFARCT, UNCHANGED FROM 08/08/18 EKG : Confirmed by: Skinny Dang MD 09-Aug-2018 07:35:56
--- NOTE | 2018-08-09 08:42 | RADIOLOGY REPORT (SQ) ---
EXAM DESCRIPTION: CHEST SINGLE VIEW COMPLETED DATE/TIME: 08/09/2018 8:25 am REASON FOR STUDY: chf COMPARISON: 08/08/2018 EXAM PARAMETERS: NUMBER OF VIEWS: One view. TECHNIQUE: Single frontal radiographic view of the chest acquired. RADIATION DOSE: NA LIMITATIONS: None. FINDINGS: LUNGS AND PLEURA: Improved aeration with decrease in the left effusion. Right lung is oralia ar. MEDIASTINUM AND HILAR STRUCTURES: No masses. Contour normal. HEART AND VASCULAR STRUCTURES: Heart enlarged. Improvement In the vascular congestion. BONES: No acute findings. HARDWARE: None in the chest. OTHER: No other significant finding. IMPRESSION: Decrease the left pleural effusion. Improvement in the vascular congestion. TECHNICAL DOCUMENTATION: JOB ID: [id number] [employer]- All Rights Reserved Reading location - IP/workstation name: [email or web address]
[2018-08-09] MEDS: INSULIN LISPRO 100 UNIT/ML 3 ML VIAL SUBCUT PRN ×4 (08:49→21:48)
[2018-08-09] MEDS: DOCUSATE SODIUM 100 MG CAPSULE PO SCH (09:10)
[2018-08-09] MEDS: METOLAZONE 2.5 MG TABLET PO SCH ×2 (09:43→17:28)
[2018-08-09] MEDS: FUROSEMIDE INJ/PF 40 MG/4 ML SDV IV SCH ×2 (09:43→17:27)
[2018-08-09] MEDS: PAROXETINE HCL 20 MG TABLET PO SCH (09:44)
[2018-08-09] MEDS ORDERED: ENOXAPARIN SODIUM INJ 40 MG/0.4 ML DISP.SYRIN SUBCUT SCH (10:00)
--- NOTE | 2018-08-09 12:03 | PDOC PROGRESS REPORT ---
Subjective Progress Note for:: 08/09/18 Subjective:: The patient is on BiPAP this morning but reports that he is feeling better. Reason For Visit: PNEUMONIA,ACUTE CONGESTIVE HEART FAILURE,ANASARCA Physical Exam Vital Signs: Temp Pulse Resp BP Pulse Ox 97.3 F 101 H 16 111/84 93 08/09/18 07:43 08/09/18 08:16 08/09/18 08:16 08/09/18 07:43 08/09/18 08:16 Intake & Output 08/08/18 08/09/18 08/10/18 06:59 06:59 06:59 Intake Total 1060 Output Total 900 Balance 160 Weight 159.8 kg General appearance: PRESENT: cooperative, mild distress, morbidly obese - BMI 50, well-developed Respiratory exam: PRESENT: decreased breath sounds - Distant breath sounds. I did not appreciate any rales, rhonchi or wheezes., symmetrical, unlabored. ABSENT: accessory muscle use, rales, rhonchi, wheezes Cardiovascular exam: PRESENT: RRR, +S1, +S2, other - Distant heart sounds possibly related to his body habitus GI/Abdominal exam: PRESENT: normal bowel sounds, soft. ABSENT: tenderness Extremities exam: PRESENT: other - Still with pitting edema to the abdomen Neurological exam: PRESENT: alert, awake, oriented to person, oriented to place, oriented to time, oriented to situation, CN II-XII grossly intact Psychiatric exam: PRESENT: appropriate affect, normal mood. ABSENT: agitated, anxious Focused psych exam: ABSENT: restlessness Results Laboratory Results: 08/09/18 03:15 08/09/18 03:15 08/08/18 08/08/18 08/08/18 13:52 13:52 13:52 WBC 10.9 H RBC 6.53 H Hgb 18.6 H Hct 58.4 H MCV 90 MCH 28.5 MCHC 31.9 L RDW 15.6 H Plt Count 205 Seg Neutrophils % 84.6 H Lymphocytes % 6.7 L Monocytes % 8.5 Eosinophils % 0.0 Basophils % 0.2 Absolute Neutrophils 9.2 H Absolute Lymphocytes 0.7 Absolute Monocytes 0.9 Absolute Eosinophils 0.0 Absolute Basophils 0.0 VBG pH VBG pCO2 VBG HCO3 VBG Base Excess Sodium 134.3 L Potassium 6.8 H* Chloride 98 Carbon Dioxide 18 L Anion Gap 18 BUN 63 H Creatinine 1.96 H Est GFR ( Amer) 41 L Est GFR (Non-Af Amer) 34 L Glucose 221 H Lactic Acid 5.3 H Calcium 9.3 Phosphorus Magnesium Total Bilirubin 5.6 H AST 813 H ALT 600 H Alkaline Phosphatase 92 Total Protein 7.0 Albumin 3.9 Triglycerides Cholesterol LDL Cholesterol Direct VLDL Cholesterol HDL Cholesterol TSH Free T4 Free T3 pg/mL Urine Color Urine Appearance Urine pH Ur Specific [place] Urine Protein Urine Glucose (UA) Urine Ketones Urine Blood Urine Nitrite Ur Leukocyte Esterase 08/08/18 08/08/18 08/08/18 13:52 13:52 15:50 WBC RBC Hgb Hct MCV MCH MCHC RDW Plt Count Seg Neutrophils % Lymphocytes % Monocytes % Eosinophils % Basophils % Absolute Neutrophils Absolute Lymphocytes Absolute Monocytes Absolute Eosinophils Absolute Basophils VBG pH 7.21 L VBG pCO2 47.4 VBG HCO3 18.6 L VBG Base Excess -9.4 Sodium Cancelled Potassium Cancelled Chloride Cancelled Carbon Dioxide Cancelled Anion Gap Cancelled BUN Cancelled Creatinine Cancelled Est GFR ( Amer) Cancelled Est GFR (Non-Af Amer) Cancelled Glucose Cancelled Lactic Acid Calcium Cancelled Phosphorus Magnesium Total Bilirubin AST ALT Alkaline Phosphatase Total Protein Albumin Triglycerides Cholesterol LDL Cholesterol Direct VLDL Cholesterol HDL Cholesterol TSH 3.16 Free T4 2.76 H Free T3 pg/mL 2.38 L Urine Color Urine Appearance Urine pH Ur Specific [place] Urine Protein Urine Glucose (UA) Urine Ketones Urine Blood Urine Nitrite Ur Leukocyte Esterase 08/08/18 08/08/18 08/08/18 18:05 20:45 20:57 WBC RBC Hgb Hct MCV MCH MCHC RDW Plt Count Seg Neutrophils % Lymphocytes % Monocytes % Eosinophils % Basophils % Absolute Neutrophils Absolute Lymphocytes Absolute Monocytes Absolute Eosinophils Absolute Basophils VBG pH VBG pCO2 VBG HCO3 VBG Base Excess Sodium Cancelled 134.7 L Potassium Cancelled 5.4 H D Chloride Cancelled 103 Carbon Dioxide Cancelled 23 Anion Gap Cancelled 9 BUN Cancelled 63 H Creatinine Cancelled 1.73 H Est GFR ( Amer) Cancelled 47 L Est GFR (Non-Af Amer) Cancelled 39 L Glucose Cancelled 252 H Lactic Acid 3.2 H Calcium Cancelled 8.0 L Phosphorus Magnesium Total Bilirubin AST ALT Alkaline Phosphatase Total Protein Albumin Triglycerides Cholesterol LDL Cholesterol Direct VLDL Cholesterol HDL Cholesterol TSH Free T4 Free T3 pg/mL Urine Color Urine Appearance Urine pH Ur Specific [place] Urine Protein Urine Glucose (UA) Urine Ketones Urine Blood Urine Nitrite Ur Leukocyte Esterase 08/09/18 08/09/18 08/09/18 03:15 03:15 06:00 WBC 8.4 RBC 5.80 H Hgb 16.6 Hct 50.8 MCV 88 MCH 28.7 MCHC 32.7 RDW 15.1 H Plt Count 139 L Seg Neutrophils % 83.3 H Lymphocytes % 7.6 L Monocytes % 8.6 Eosinophils % 0.2 Basophils % 0.3 Absolute Neutrophils 7.0 Absolute Lymphocytes 0.6 Absolute Monocytes 0.7 Absolute Eosinophils 0.0 Absolute Basophils 0.0 VBG pH VBG pCO2 VBG HCO3 VBG Base Excess Sodium 135.6 L Potassium 5.2 H Chloride 106 Carbon Dioxide 20 L Anion Gap 10 BUN 66 H Creatinine 1.70 H Est GFR ( Amer) 48 L Est GFR (Non-Af Amer) 40 L Glucose 241 H Lactic Acid Calcium 8.6 Phosphorus 5.6 H Magnesium 2.2 Total Bilirubin 3.5 H AST 992 H ALT 684 H Alkaline Phosphatase 69 Total Protein 5.2 L Albumin 2.6 L Triglycerides 96 Cholesterol 114.91 LDL Cholesterol Direct 99 VLDL Cholesterol 19.0 HDL Cholesterol 11 L TSH Free T4 Free T3 pg/mL Urine Color YELLOW Urine Appearance CLEAR Urine pH 5.0 Ur Specific [place] 1.019 Urine Protein NEGATIVE Urine Glucose (UA) NEGATIVE Urine Ketones NEGATIVE Urine Blood NEGATIVE Urine Nitrite NEGATIVE Ur Leukocyte Esterase NEGATIVE 08/08/18 08/08/18 08/08/18 13:52 13:52 15:50 Creatine Kinase 85 CK-MB (CK-2) 3.00 Troponin I 0.037 NT-Pro-B Natriuret Pep [id number] H 08/08/18 08/09/18 08/09/18 20:45 03:15 09:20 Creatine Kinase CK-MB (CK-2) Troponin I 0.036 0.045 0.031 NT-Pro-B Natriuret Pep Impressions: Abdomen/Pelvis CT 08/08/18 15:27 IMPRESSION: Large bilateral pleural effusions. Upper abdominal ascites. Marked anasarca. Minimal contrast seen in the portal vein, SMV, splenic vein. Possibly related to timing and right heart failure. Chest X-Ray 08/09/18 06:00 IMPRESSION: Decrease the left pleural effusion. Improvement in the vascular congestion. Assessment & Plan - Diagnosis (1) Congestive heart failure Qualifiers: Heart failure type: right-sided Heart failure chronicity: acute Qualified Code(s): I50.811 - Acute right heart failure Is this a current diagnosis for this admission?: Yes Plan: The patient was unaware of her previous diagnosis of congestive heart failure. He has never had an echocardiogram. One has been ordered for today. He has marked anasarca that does not show a significant improvement after the first day. He has bilateral pleural effusions but I do not know if they are large enough for thoracentesis. I will discuss with interventional radiology. Continue furosemide and Zaroxolyn. We will need to monitor his kidney function. His albumin is normal so there is no need for IV albumin. He should have his echocardiogram this morning (2) Acute respiratory failure with hypoxia Is this a current diagnosis for this admission?: Yes (3) Acute renal failure Qualifiers: Acute renal failure type: unspecified Qualified Code(s): N17.9 - Acute kidney failure, unspecified Is this a current diagnosis for this admission?: Yes Plan: CT scan of the abdomen did not reveal any renal pathology. Continue to monitor renal function and adjust medications accordingly. I will also have nephrology see the patient. He does not exhibit any significant change in the anasarca. (4) Liver failure without hepatic coma Qualifiers: Liver failure chronicity: acute Qualified Code(s): K72.00 - Acute and subacute hepatic failure without coma Is this a current diagnosis for this admission?: Yes Plan: It is possible that this is all passive congestion. His transaminases are slightly higher today. (5) Left lower lobe pneumonia Qualifiers: Pneumonia type: due to unspecified organism Qualified Code(s): J18.1 - Lobar pneumonia, unspecified organism Is this a current diagnosis for this admission?: Yes Plan: He is on antibiotic therapy. His white blood cell count is improved. Continue BiPAP. (6) Hyperkalemia Is this a current diagnosis for this admission?: Yes Plan: Potassium is normal today. Continue to monitor. (7) Diabetes mellitus type 2 with complications Qualifiers: Diabetes mellitus kohinoor operator insulin use: with kohinoor operator use Qualified Co de(s): E11.8 - Type 2 diabetes mellitus with unspecified complications; Z79.4 - FDC (current) use of insulin Is this a current diagnosis for this admission?: Yes Plan: Continue current regimen. Adjust as needed. - Time Time Spent with patient: 15-24 minutes Medications reviewed and adjusted accordingly: Yes Anticipated discharge: Home
[2018-08-10 05:44] LABS: HEMATOCRIT 47.5 % (37.9-51.0); HEMOGLOBIN 15.6 g/dL (13.5-17.0); MEAN CORPUSCULAR HEMOGLOBIN 28.6 pg (27.0-33.4); MEAN CORPUSCULAR HGB CONC 32.8 g/dL (32.0-36.0); MEAN CORPUSCULAR VOLUME 87 fl (80-97); RED BLOOD COUNT 5.45 10^6/uL (4.35-5.55); RED CELL DISTRIBUTION WIDTH 15.8 % (11.5-14.0)
[2018-08-10 05:53] LABS: ALANINE AMINOTRANSFERASE 516 U/L (21-72); ALBUMIN 2.4 g/dL (3.5-5.0); ALKALINE PHOSPHATASE 67 U/L (38-126); ANION GAP 9 (5-19); ASPARTATE AMINO TRANSFERASE 477 U/L (17-59); BILIRUBIN,DIRECT 2.8 mg/dL (0.0-0.4); BILIRUBIN,TOTAL 4.5 mg/dL (0.2-1.3); BLOOD UREA NITROGEN 62 mg/dL (7-20); CALCIUM 8.1 mg/dL (8.4-10.2); CARBON DIOXIDE 24 mmol/L (22-30); CHLORIDE 102 mmol/L (98-107); GLUCOSE 202 mg/dL (75-110); POTASSIUM 3.8 mmol/L (3.6-5.0); SODIUM 134.7 mmol/L (137-145); TOTAL PROTEIN 4.8 g/dL (6.3-8.2)
[2018-08-10 06:09] LABS: PLATELET COUNT 97 10^3/uL (150-450)
[2018-08-10] MEDS: DOCUSATE SODIUM 100 MG CAPSULE PO SCH (09:02)
[2018-08-10] MEDS: FONDAPARINUX SODIUM INJ 2.5 MG/0.5 ML DISP.SYRIN SUBCUT SCH (09:02)
[2018-08-10] MEDS: FAMOTIDINE 20 MG TABLET PO SCH ×2 (09:02→21:10)
[2018-08-10] MEDS: METOLAZONE 2.5 MG TABLET PO SCH ×2 (09:02→17:12)
[2018-08-10] MEDS: PAROXETINE HCL 20 MG TABLET PO SCH (09:02)
[2018-08-10] MEDS: FUROSEMIDE INJ/PF 40 MG/4 ML SDV IV SCH ×3 (09:32→22:13)
[2018-08-10] MEDS: INSULIN LISPRO 100 UNIT/ML 3 ML VIAL SUBCUT PRN ×3 (09:32→23:18)
--- NOTE | 2018-08-10 11:13 | PDOC CONSULTATION ---
Consultation Consult Date: 08/10/18 History of Present Illness Admission Date/PCP: 08/08/18 19:41 JOAQUIN GOTTLIEB MD History of Present Illness: RONALDO HOOKER is a 73 year old male with a history of long-standing complicated diabetes mellitus and apparently no other significant history of hypertension, heart disease, sleep apnea was admitted with history of progressive edema and shortness of breath over the last 4-6 weeks. He admits to a 30-40 pound weight gain over the same amount of time. He lives with his . Says he is on a low-sodium diet. He denies any history of CAD, CHF, liver disease or known CKD. Patient currently is on BiPAP. Labs and medications were reviewed with the patient. Past Medical History Cardiac Medical History: Reports: Peripheral Vascular Disease - Likely related to diabetes. Right hallux amputation. Pulmonary Medical History: Denies: Chronic Obstructive Pulmonary Disease (COPD), Intubation, Respiratory Failure, Sleep Apnea EENT Medical History: Denies: Cataracts, Ears, Nose Neurological Medical History: Denies: Hemorrhagic CVA, Ischemic CVA, Migraine Endocrine Medical History: Reports: Diabetes Mellitus Type 2 Complications of Diabetes: Reports: None Malignancy Medical History: Reports: None GI Medical History: Denies: Cirrhosis, Diverticulitis, Gastroesophageal Reflux Disease, Hepatitis, Hiatal Hernia Musculoskeltal Medical History: Denies: Fibromyalgia, Gout Skin Medical History: Reports: Other - Chronic stasis dermatitis lower extremities Denies: Psoriasis Psychiatric Medical History: Reports: Depression Traumatic Medical History: Reports: None Infectious Medical History: Reports: None Past Surgical History Past Surgical History: Reports: Orthopedic Surgery - Amputation right hallux Social History Lives with: Family, Spouse/Significant other Smoking Status: Former Smoker Last Time Smoked: 24 years ago Frequency of Alcohol Use: Occasional Hx Recreational Drug Use: No Drugs: None Hx Prescription Drug Abuse: No - Advance Directive Resuscitation Status: Full Code Family History Parental Family History Reviewed: Yes - Negative for ESRD Children Family History Reviewed: No Sibling(s) Family History Reviewed.: No Medication/Allergy Home Medications: Furosemide [Lasix 20 mg Tablet] 20 mg PO BID 08/09/18 Hum Insulin NPH/Reg Insulin Hm [Novolin 70-30 100 Unit/ml Vial] 22 units SQ BID 08/09/18 Metformin HCl 850 mg PO DAILY 08/09/18 Paroxetine HCl [Paxil 20 mg Tablet] 20 mg PO DAILY 08/09/18 Potassium Chloride 20 meq PO DAILY 08/09/18 Allergies/Adverse Reactions: amoxicillin [From Augmentin] Adverse Reaction (Mild, Verified 08/08/18 15:35) Nausea clavulanic acid [From Augmentin] Adverse Reaction (Mild, Verified 08/08/18 15:35) Nausea Review of Systems Constitutional: PRESENT: fatigue. ABSENT: anorexia, fever(s), headache(s), night sweats Nose, Mouth, and Throat: ABSENT: mouth pain, sore throat Cardiovascular: PRESENT: dyspnea on exertion, edema, orthropnea. ABSENT: chest pain Respiratory: PRESENT: dyspnea. ABSENT: hemoptysis Gastrointestinal: ABSENT: abdominal pain, diarrhea, dysphagia, heartburn, hematochezia Genitourinary: ABSENT: dysuria, hematuria Integumentary: PRESENT: erythema - Mild over his lower extremities.. ABSENT: lesions, pruritus, rash Neurological: ABSENT: abnormal speech, confusion, convulsions, focal weakness Psychiatric: PRESENT: depression. ABSENT: hallucinations, suicidal ideation Hematologic/Lymphatic: ABSENT: easy bruising, lymphadenopathy Physical Exam Vital Signs: Temp Pulse Resp BP Pulse Ox 97.4 F 107 H 16 113/84 93 08/10/18 07:35 08/10/18 09:35 08/10/18 09:35 08/10/18 07:35 08/10/18 09:35 Intake & Output 08/09/18 08/10/18 08/11/18 06:59 06:59 06:59 Intake Total 1060 1520 Output Total 900 5200 Balance 160 -3680 Weight 159.8 kg 160 kg General appearance: PRESENT: mild distress, morbidly obese Eye exam: PRESENT: EOMI, PERRLA. ABSENT: conjunctival injection, nystagmus Ear exam: PRESENT: normal external ear exam Mouth exam: PRESENT: moist, neck supple Neck exam: ABSENT: lymphadenopathy, meningismus, tenderness, thyromegaly, t roberto deviation Respiratory exam: PRESENT: clear to auscultation kenan, decreased breath sounds. ABSENT: crackles Cardiovascular exam: PRESENT: +S1, +S2 GI/Abdominal exam: PRESENT: distended, normal bowel sounds, soft. ABSENT: organomegaly, tenderness Extremities exam: PRESENT: +1 edema Neurological exam: PRESENT: alert, awake, oriented to person, oriented to place Psychiatric exam: PRESENT: depressed Skin exam: PRESENT: erythema - Mild over both extremities suggestive of venous stasis., mottled Results Laboratory Results: 08/10/18 05:19 08/10/18 05:19 08/10/18 08/10/18 08/10/18 05:19 05:19 05:19 WBC 7.0 RBC 5.45 Hgb 15.6 Hct 47.5 MCV 87 MCH 28.6 MCHC 32.8 RDW 15.8 H Plt Count 97 L Sodium 134.7 L Potassium 3.8 Chloride 102 Carbon Dioxide 24 Anion Gap 9 BUN 62 H Creatinine 1.61 H Est GFR ( Amer) 51 L Est GFR (Non-Af Amer) 43 L Glucose 202 H Lactic Acid 1.7 Calcium 8.1 L Total Bilirubin 4.5 H AST 477 H ALT 516 H Alkaline Phosphatase 67 Total Protein 4.8 L Albumin 2.4 L 08/08/18 08/08/18 08/08/18 13:52 13:52 15:50 Creatine Kinase 85 CK-MB (CK-2) 3.00 Troponin I 0.037 NT-Pro-B Natriuret Pep 25233 H 08/08/18 08/09/18 08/09/18 20:45 03:15 09:20 Creatine Kinase CK-MB (CK-2) Troponin I 0.036 0.045 0.031 NT-Pro-B Natriuret Pep Impressions: Abdomen/Pelvis CT 08/08/18 15:27 IMPRESSION: Large bilateral pleural effusions. Upper abdominal ascites. Marked anasarca. Minimal contrast seen in the portal vein, SMV, splenic vein. Possibly related to timing and right heart failure. Chest X-Ray 08/09/18 06:00 IMPRESSION: Decrease the left pleural effusion. Improvement in the vascular congestion. Assessment & Plan - Diagnosis (1) Acute renal failure Qualifiers: Acute renal failure type: unspecified Qualified Code(s): N17.9 - Acute kidney failure, unspecified Is this a current diagnosis for this admission?: Yes Plan: Probably has underlying chronic kidney disease and his current insult of congestive heart failure with prerenal component is pushed him into the situation. We will try to get notes from his primary care. Otherwise continue on present lines of management. Follow-up on echocardiogram.We will order renal ultrasound. (2) Acute respiratory failure with hypoxia Is this a current diagnosis for this admission?: Yes Plan: Currently on BiPAP. Follow-up on echocardiogram. (3) Congestive heart failure Qualifiers: Heart failure type: right-sided Heart failure chronicity: acute Qualified Code(s): I50.811 - Acute right heart failure Is this a current diagnosis for this admission?: Yes Plan: Probably multifactorial. Given his morbid obesity he looks like he would be highly likely to have sleep apnea or if not a pickwickian syndrome producing right heart failure. Follow-up on echocardiogram. Currently patient is not the situation to discuss much given that the fact he is on BiPAP. Revaluate his history at the later point. (4) Diabetes mellitus type 2 in obese Is this a current diagnosis for this admission?: Yes Plan: Uncontrolled. Advised the need for tight diabetic control for obvious reasons. We will re discuss this again once he is off the BiPAP. (5) Hyperkalemia Is this a current diagnosis for this admission?: Yes Plan: Came in at 6.8 on supplements and now it is corrected down to 3.8. (6) Liver failure without hepatic coma Qualifiers: Liver failure chronicity: acute Qualified Code(s): K72.00 - Acute and subacute hepatic failure without coma Is this a current diagnosis for this admission?: Yes Plan: Possibly secondary to congestive hepatopathy. Further workup as per hospita list.
--- NOTE | 2018-08-10 14:27 | RADIOLOGY REPORT (SQ) ---
EXAM DESCRIPTION: U/S RETROPERITON (RENAL/AORTA) COMPLETED DATE/TIME: 08/10/2018 2:15 pm REASON FOR STUDY: SHELLEY in DM. COMPARISON: None. TECHNIQUE: Dynamic and static grayscale images acquired of the kidneys and bladder and recorded on P ACS. Additional selected color Doppler and spectral images recorded. LIMITATIONS: Very limited examination due to the patient's body habitus. FINDINGS: RIGHT KIDNEY: The right kidney measures 11.5 cm. Suboptimal visualization due to the pat ient's body habitus. Normal size. No hydronephrosis. LEFT KIDNEY: The left kidney was not evaluated due to the patient's body habitus, the patient was un able to turn on the right side with assistance. BLADDER: Bailey catheter present within the urinary bladder. OTHER FINDINGS: Mild to moderate right pleural effusion. IMPRESSION: 1. Examination is very limited due to the patient's body habitus. The left kidney was not visualized. 2. No evidence of hydronephrosis on the right. 3. Bailey catheter present within the urinary bladder. 4. Incidentally mild to moderate right pleural effusion. TECHNICAL DOCUMENTATION: JOB ID: [id number] [employer]- All Rights Reserved Reading location - IP/workstation name: [email or web address]
--- NOTE | 2018-08-10 15:47 | PDOC PROGRESS REPORT ---
Subjective Progress Note for:: 08/10/18 Subjective:: Patient is feeling somewhat better today again. He is comfortable with the BiPAP in place. Reason For Visit: PNEUMONIA,ACUTE CONGESTIVE HEART FAILURE,ANASARCA Physical Exam Vital Signs: Temp Pulse Resp BP Pulse Ox 97.3 F 108 H 17 114/73 95 08/10/18 11:33 08/10/18 14:00 08/10/18 11:33 08/10/18 11:33 08/10/18 11:33 Intake & Output 08/09/18 08/10/18 08/11/18 06:59 06:59 06:59 Intake Total 1060 1520 218 Output Total 900 5200 1450 Balance 160 -3680 -1232 Weight 159.8 kg 160 kg General appearance: PRESENT: no acute distress, cooperative, morbidly obese - BMI 50, well-developed Head exam: PRESENT: atraumatic, normocephalic Neck exam: ABSENT: carotid bruit, lymphadenopathy Respiratory exam: PRESENT: clear to auscultation kenan - Anteriorly, decreased breath sounds - Throughout. Likely due to body habitus., symmetrical. ABSENT: chest wall tenderness, rales, rhonchi, wheezes Cardiovascular exam: PRESENT: RRR, +S1, +S2, other - Decreased heart sounds. Most likely due to body habitus. GI/Abdominal exam: PRESENT: normal bowel sounds, soft, other - Pitting edema is still up to the torso.. ABSENT: distended, guarding, tenderness Extremities exam: PRESENT: other - Still with swelling in all 4 extremities. Neurological exam: PRESENT: alert, awake, oriented to person, oriented to place, oriented to time, oriented to situation, CN II-XII grossly intact Psychiatric exam: PRESENT: appropriate affect, normal mood. ABSENT: agitated, anxious Focused psych exam: ABSENT: restlessness Results Laboratory Results: 08/10/18 05:19 08/10/18 05:19 08/10/18 08/10/18 08/10/18 05:19 05:19 05:19 WBC 7.0 RBC 5.45 Hgb 15.6 Hct 47.5 MCV 87 MCH 28.6 MCHC 32.8 RDW 15.8 H Plt Count 97 L Sodium 134.7 L Potassium 3.8 Chloride 102 Carbon Dioxide 24 Anion Gap 9 BUN 62 H Creatinine 1.61 H Est GFR ( Amer) 51 L Est GFR (Non-Af Amer) 43 L Glucose 202 H Lactic Acid 1.7 Calcium 8.1 L Total Bilirubin 4.5 H AST 477 H ALT 516 H Alkaline Phosphatase 67 Total Protein 4.8 L Albumin 2.4 L 08/08/18 08/08/18 08/08/18 13:52 13:52 15:50 Creatine Kinase 85 CK-MB (CK-2) 3.00 Troponin I 0.037 NT-Pro-B Natriuret Pep 54778 H 08/08/18 08/09/18 08/09/18 20:45 03:15 09:20 Creatine Kinase CK-MB (CK-2) Troponin I 0.036 0.045 0.031 NT-Pro-B Natriuret Pep Impressions: Abdomen/Pelvis CT 08/08/18 15:27 IMPRESSION: Large bilateral pleural effusions. Upper abdominal ascites. Marked anasarca. Minimal contrast seen in the portal vein, SMV, splenic vein. Possibly related to timing and right heart failure. Chest X-Ray 08/09/18 06:00 IMPRESSION: Decrease the left pleural effusion. Improvement in the vascular congestion. Renal Ultrasound 08/10/18 00:00 IMPRESSION: 1. Examination is very limited due to the patient's body habitus. The left kidney was not visualized. 2. No evidence of hydronephrosis on the right. 3. Bailey catheter present within the urinary bladder. 4. Incidentally mild to moderate right pleural effusion. Assessment & Plan - Diagnosis (1) Congestive heart failure Qualifiers: Heart failure type: right-sided Heart failure chronicity: acute Qualified Code(s): I50.811 - Acute right heart failure Is this a current diagnosis for this admission?: Yes Plan: Echocardiogram is pending. Continue current diuretic regimen. Still with a good negative fluid balance. (2) Acute respiratory failure with hypoxia Is this a current diagnosis for this admission?: Yes Plan: Doing well on BiPAP. In 1-2 days consider thoracentesis if clinically indicated. (3) Acute renal failure Qualifiers: Acute renal failure type: unspecified Qualified Code(s): N17.9 - Acute kidney failure, unspecified Is this a current diagnosis for this admission?: Yes Plan: Still with excellent urine output. Nephrology has been consulted. (4) Liver failure without hepatic coma Qualifiers: Liver failure chronicity: acute Qualified Code(s): K72.00 - Acute and subacute hepatic failure without coma Is this a current diagnosis for this admission?: Yes Plan: Transaminases continue to improve. He does have some degree of oral anticoag ulation. Monitor INR and liver enzymes. (5) Left lower lobe pneumonia Qualifiers: Pneumonia type: due to unspecified organism Qualified Code(s): J18.1 - Lobar pneumonia, unspecified organism Is this a current diagnosis for this admission?: Yes Plan: The patient does not have a white count. The chest x-ray appears to be all cardiogenic. I have discontinued his antibiotics. No pneumonia diagnosis is supported. (6) Hyperkalemia Is this a current diagnosis for this admission?: Yes Plan: With ongoing diuresis serum potassium has normalized. We will need to monitor to avoid hypokalemia. 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 - Time Time Spent with patient: 15-24 minutes Medications reviewed and adjusted accordingly: Yes Anticipated discharge: Home
--- NOTE | 2018-08-10 17:01 | Operative Report ---
Bedside Procedure - History of Present Illness Indication for Procedure: venous access Surgeon: LILI HURT - Central Line Right Time completed: 16:30 Consent obtained: Yes Central line pre-insertion: Chloraprep applied Central line lumen type: Other - right external jugular line placed using 18guage intracath Anesthetic type: 1% Lidocaine mL's of anesthesia: 1 Ultrasound guided: No CM at insertion site: 5 Line secured with sutures: Yes Central line post-insertion: Other Complications: No - none
[2018-08-10] MEDS: DOBUTAMINE HCL/D5W 500 MG/250 ML RTUINJ IV PRN (20:56)
--- NOTE | 2018-08-10 21:26 | PDOC CONSULTATION ---
Consultation-Blank Consultation: CARDIOLOGY CONSULTATION by Dr. Ingrid Blanc on 08/10/2018. Patient seen 7 PM on 08/10/2018. REASON FOR CONSULTATION: Congestive heart failure. HISTORY OF PRESENT ILLNESS: Patient is a 73-year-old diabetic type II, and history of mild chronic swelling of his feet, states that in spite of Lasix for the past 6-8 weeks has not had increased leg edema and scrotal edema and also generalized edema, and shortness of breath. He does have orthopnea but no PND. He denies any chest pain or discomfort. There is no palpitations. She denies any symptoms of TIA or CVA. There is no dizziness near syncope or syncope. He states he takes Lasix for his edema, and denies hypertension. Although he denies any prior liver or kidney disease, his LFTs are abnormal, and the patient has acute renal failure. PAST MEDICAL HISTORY: Is positive for history of prior congestive heart failure, history of peripheral vascular disease, with history of right hallux amputation. He has a history of diabetes mellitus. He denies any history of hypertension. He has a history of chronic leg edema and is on Lasix. Usually the Lasix keeps the elements only trace, but since last 6-8 weeks it has been increasing. He denies any history of sleep apnea. There is no history of asthma or COPD. The patient denies any cough or sputum production. There is no history of pulmonary embolism. There is no prior history of cardiac arrhythmia. There is no syncope. There is no history of TIA or CVA. He denies any history of depression. He does have a history of chronic diarrhea. PAST SURGICAL HISTORY: Has had amputation of the right hallux. SOCIAL HISTORY: The patient is a non-smoker. There is no history of EtOH abuse. FAMILY HISTORY: The patient is adopted, hence family history not available. ALLERGIES: He is allergic to amoxicillin and clavulanic acid. DISPOSITION: The patient is a full code. His is a surrogate healthcare decision maker. REVIEW OF SYSTEMS: CONSTITUTIONAL: Denies any fever chills or rigors. Complains of generalized fatigue and weakness. HEAD: Denies headaches or head injury. E YES: No history of amblyopia diplopia. No history of amaurosis fugax. EARS: No history of hearing loss. No tinnitus. No vertigo. NOSE: No history of nosebleeds. No history of hayfever. No history of nasal polyps. MOUTH: No history of altered taste sensation. No ulcers in the mouth. No bleeding complications. THROAT: No history of odynophagia or dysphagia. No recurrent sore throats. SKIN: He has venous stasis dermatitis of hisl ower extremities. No pruritus. No yellowish discoloration of the skin. No psoriasis. NECK: No neck pain. No swelling in the neck. No goiter. LUNGS: No history of cough or sputum production. No wheezing. No history of COPD or asthma. No history of pulmonary embolism. Denies sleep apnea. HEART: Prior history of congestive heart failure. No history of hypertension. No history of coronary artery disease, or CA or angina. No history of syncope. No history of palpitations. History of chronic leg edema present. This is increased now, with the patient having 30-40 pound weight gain over the past 6-8 weeks. GI: No history of fatty food intolerance. No history of hepatitis. No history of jaundice. No history of GI bleed. History of chronic diarrhea. No history of GERD or peptic ulcer disease no history of GI bleed. METABOLIC: Denies hyperlipidemia. The patient is morbidly obese. No history of gout. RENAL: No prior history of renal failure. But the patient's GFR is reduced suggestive of acute renal failure. No symptoms of UTI. No hematuria pyuria or dysuria. No symptoms of enlarged prostate. MUSCULOSKELETAL: Denies collagen vascular disease. No arthritis. ENDOCRINE: History of diabetes mellitus with peripheral vascular disease. No diabetic neuropathy. No polydipsia polyuria. The patient's blood sugar is not very well controlled. He denies history of thyroid disease. There is no heat or cold intolerance. 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 No history of headaches migraines or seizures. PSYCHIATRIC: No history of anxiety or depression. No history of suicidal ideation no history of homicidal ideation. VASCULAR: Possibly has peripheral vascular disease related to diabetes. But no symptoms of claudication, but the patient is not very active. No history of DVT. HEMATOLOGICAL. No prior history of thrombocytopenia, but the patient's platelets are reduced. No history of bleeding diathesis or clotting disorders. Physical EXAMINATION: The patient is morbidly obese. He is mildly short of breath. He is well-groomed. Selected Entries 08/09/18 11:35 Temperature 97.3 F Temperature Oral Source Pulse Rate 94 Respiratory 20 Rate Blood Pressure 111/78 Blood Pressure 89 Mean BP Location Right Arm BP Position Supine O2 Sat by Pulse 97 Oximetry Oxygen Flow 5.00 Rate Oxygen Delivery Nasal Cannula Method HEAD: Is atraumatic normocephalic. EYES: His pupils are equal round regular reactive to light accommodation there is no conjunctival pallor there is no scleral icterus. ENT: Is negative. NECK: Supple. There is mild JVD still present. Carotids are equal there is no bruit. There is no lymphadenopathy. There is no goiter. LUNGS: Shows absent breath sounds and dullness in the left base. Rest of the lungs are clear there is no rales of CHF today. There is no chest wall tenderness. S1-S2 is heard S1 is of variable intensity. There is no S3 gallop there is no S4 gallop. There is systolic murmur of mitral regurgitation and tricuspid regurgitation present. There is no murmur of aortic stenosis or aortic regurgitation. There is no rub. Abdomen: Is obese. Nontender. Bowel sounds are well heard. There is no hepatosplenomegaly. EXTREMITIES: Femorals are deep. Femorals are diminished. There is no femoral bruits. Leg pulses are diminished. There is mild anasarca, and mild bilateral pedal edema. There is no DVT or cellulitis. There is no calf tenderness. There is no cyanosis or clubbing. 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 PSYCHIATRIC: The patient judgment and insight are intact his affect is normal. 08/08/18 08/08/18 08/10/18 13:52 13:52 05:19 WBC 7.0 RBC 5.45 Hgb 15.6 Hct 47.5 MCV 87 MCH 28.6 MCHC 32.8 RDW 15.8 H Plt Count 97 L PT 23.8 H INR 2.01 VBG pH 7.21 L VBG pCO2 47.4 VBG HCO3 18.6 L VBG Base Excess -9.4 Sodium Potassium Chloride Carbon Dioxide Anion Gap BUN Creatinine Est GFR (Non-Af Amer) Glucose POC Glucose Lactic Acid Calcium Total Bilirubin Direct Bilirubin Neonat Total Bilirubin Neonat Direct Bilirubin Neonat Indirect Bili AST ALT Alkaline Phosphatase Total Protein Albumin 08/10/18 08/10/18 08/10/18 05:19 05:19 05:39 WBC RBC Hgb Hct MCV MCH MCHC RDW Plt Count PT INR VBG pH VBG pCO2 VBG HCO3 VBG Base Excess Sodium 134.7 L Potassium 3.8 Chloride 102 Carbon Dioxide 24 Anion Gap 9 BUN 62 H Creatinine 1.61 H Est GFR (Non-Af Amer) 43 L Glucose 202 H POC Glucose 173 H Lactic Acid 1.7 Calcium 8.1 L Total Bilirubin 4.5 H Direct Bilirubin 2.8 H Neonat Total Bilirubin Not Reportable Neonat Direct Bilirubin Not Reportable Neonat Indirect Bili Not Reportable AST 477 H ALT 516 H Alkaline Phosphatase 67 Total Protein 4.8 L Albumin 2.4 L 08/08/18 19:02 Acetaminophen [Tylenol 325 mg Tablet] 650 mg PO Q4HP PRN Albuterol Sulfate [Ventolin 0.083% Neb 2.5 mg/3 ml Ampul] 2.5 mg NEB [id number] PRN 08/08/18 19:36 Dextrose 50%-Water [Dextrose Inj 50% Syringe (25 gm/50 ml)] 12.5 gm IV PRN PRN Dextrose 50%-Water [Dextrose Inj 50% Syringe (25 gm/50 ml)] 25 gm IV PRN PRN Dextrose [Glutose 40% Gel 15 gm Tube] 15 gm PO PRN PRN Dextrose [Glutose 40% Gel 15 gm Tube] 30 gm PO PRN PRN Glucagon,Human Recombinant [Glucagen Inj 1 mg Vial] 1 mg IM PRN PRN 08/08/18 22:00 Normal Saline [Saline Flush 2.5 ml Monoject Prefil Syrin] 2.5 ml IV Q8 08/10/18 10:00 Fondaparinux Sodium [Arixtra Inj 2.5 mg/0.5 ml Disp.syrin] 2.5 mg SUBCUT DAILY 08/10/18 14:00 Flu Vacc [id number](6Mos Up)/Pf [Fluarix Adlt Quad Vac 0.5 ml Syr] 0.5 ml IM .DISCHARGE PRN The patient's initial EKG shows sinus tachycardia with left bundle branch block pattern. Subsequent EKG shows sinus rhythm with left bundle branch block pattern. The monitor strip shows atrial fibrillation with a ventricular response in the 90s. The patient's chest x-ray shows congestive heart failure, and bilateral pleural effusions. There is also cardiomegaly. The patient CT of the abdomen shows sinusitis, anasarca. [Please see report]. ECHOCARDIOGRAM done shows severely reduced LV ejection fraction consistent with cardiomyopathy with a LV ejection fraction 25%. There is at least moderate pulmonary hypertension with right ventricular systolic pressure of 54 mmHg with a mean of at least 20. [The IVC is dilated and does not vary with respirations, and hence right atrial mean is greater than 20]. 1. Congestive heart failure: Biventricular heart failure. Most likely the patient is acute on chronic left ventricular and right ventricular systolic heart failure. Recommend starting the patient on dobutamine drip/infusion at 2.5 mcg/kg/min, and increasing the patient's Lasix to 40 mg IV every 8 hours. Later would start the patient on an TELMA inhibitor, if the blood pressure permits. Also since the heart rate now is controlled later would start the patient on a beta-isaura also. 2. Possible pneumonia. This I very much doubt. 3. Acute renal failure, patient unclear if this is acute on chronic renal failure or just acute renal failure.. 4. Diabetes mellitus, long-standing with probably underlying diabetic nephropathy. Insulin-dependent 5. Atrial fibrillation: Although the patient's prior EKG's shows sinus rhythm with left bundle branch block pattern, monitor strip shows the patient to be in atrial fibrillation. Although the patient's Arthur Vascor requires that the patient be on chronic anticoagulation, with the patient's abnormal liver function tests, and the patient's platelets being 77 will hold off on oral chronic anticoagulation therapy. This has been discussed with the patient and patient's . 6. Thrombocytopenia:? Etiology. There is no bleeding complications with this at present. Will closely follow 7. Moderate pulmonary hypertension [at least]: Continue current treatment. 8. Morbid obesity. 9. Abnormal EKG: Patient has left bundle branch block pattern on EKG, and atrial fibrillation on the monitor. Will repeat EKG Later would recommend that the patient have a IV Lexiscan Cardiolite stress test to assess for underlying coronary artery disease. Medications reviewed. Medications adjusted. Would recommend accurate intake and output record. Management plan discussed with attending physician on the case. Patient seen at 7 PM on 08/10/2018. 60 minutes spent on this patient with more than 50% of time spent in direct patient care medical decision making is of high complexity. Will follow with you.
[2018-08-10] MEDS: NITROGLYCERIN 2% OINTMENT 1 GM PACKET TP SCH (23:17)
[2018-08-11 04:11] LABS: HEMATOCRIT 48.1 % (37.9-51.0); HEMOGLOBIN 15.8 g/dL (13.5-17.0); MEAN CORPUSCULAR HEMOGLOBIN 28.2 pg (27.0-33.4); MEAN CORPUSCULAR HGB CONC 32.8 g/dL (32.0-36.0); MEAN CORPUSCULAR VOLUME 86 fl (80-97); RED CELL DISTRIBUTION WIDTH 15.4 % (11.5-14.0); WHITE BLOOD COUNT 5.6 10^3/uL (4.0-10.5)
[2018-08-11 04:30] LABS: ALANINE AMINOTRANSFERASE 432 U/L (21-72); ALBUMIN 2.5 g/dL (3.5-5.0); ALKALINE PHOSPHATASE 91 U/L (38-126); ANION GAP 10 (5-19); ASPARTATE AMINO TRANSFERASE 375 U/L (17-59); BILIRUBIN,DIRECT 4.1 mg/dL (0.0-0.4); BILIRUBIN,TOTAL 6.4 mg/dL (0.2-1.3); BLOOD UREA NITROGEN 56 mg/dL (7-20); CALCIUM 8.2 mg/dL (8.4-10.2); CARBON DIOXIDE 30 mmol/L (22-30); CHLORIDE 98 mmol/L (98-107); CREATINE KINASE 30 U/L (55-170); GLUCOSE 214 mg/dL (75-110); PHOSPHORUS 4.2 mg/dL (2.5-4.5); SODIUM 137.8 mmol/L (137-145); TOTAL PROTEIN 5.1 g/dL (6.3-8.2)
[2018-08-11 04:35] LABS: PLATELET COUNT 77 10^3/uL (150-450)
[2018-08-11 04:41] LABS: CREATINE KINASE MB 0.97 ng/mL (<4.55); TROPONIN I 0.071 ng/mL
[2018-08-11] MEDS: NITROGLYCERIN 2% OINTMENT 1 GM PACKET TP SCH ×3 (05:21→17:02)
[2018-08-11] MEDS: FUROSEMIDE INJ/PF 40 MG/4 ML SDV IV SCH ×3 (05:22→21:12)
[2018-08-11] MEDS: POTASSI CL 20 MEQ/50 ML RIDER 20 MEQ/50 ML RTUPB IV SCH ×2 (05:24→06:55)
[2018-08-11] MEDS ORDERED: POTASSIUM CHLORIDE 20 MEQ/50 ML RTU IV SCH (06:00)
[2018-08-11] MEDS: POTASSIUM CHLORIDE 20 MEQ/50 ML RTU IV SCH ×2 (09:16→10:39)
[2018-08-11] MEDS: PAROXETINE HCL 20 MG TABLET PO SCH (09:17)
[2018-08-11] MEDS: DOCUSATE SODIUM 100 MG CAPSULE PO SCH (09:18)
[2018-08-11] MEDS: METOLAZONE 2.5 MG TABLET PO SCH ×2 (09:18→17:02)
[2018-08-11] MEDS: FAMOTIDINE 20 MG TABLET PO SCH ×2 (09:18→21:11)
[2018-08-11] MEDS: FONDAPARINUX SODIUM INJ 2.5 MG/0.5 ML DISP.SYRIN SUBCUT SCH (09:53)
[2018-08-11 12:36] LABS: CREATINE KINASE MB 0.97 ng/mL (<4.55); TROPONIN I 0.067 ng/mL
[2018-08-11] MEDS: INSULIN LISPRO 100 UNIT/ML 3 ML VIAL SUBCUT PRN ×3 (12:53→22:01)
--- NOTE | 2018-08-11 12:56 | PDOC PROGRESS REPORT ---
Subjective Progress Note for:: 08/11/18 Subjective:: The patient is resting comfortably in bed. He is on nasal cannula. Reason For Visit: PNEUMONIA,ACUTE CONGESTIVE HEART FAILURE,ANASARCA Physical Exam Vital Signs: Temp Pulse Resp BP Pulse Ox 97.7 F 107 H 20 135/40 H 97 08/11/18 11:00 08/11/18 11:00 08/11/18 11:00 08/11/18 11:00 08/11/18 11:00 Intake & Output 08/10/18 08/11/18 08/12/18 06:59 06:59 06:59 Intake Total 1520 714 85 Output Total 5200 3650 Balance -3811 -7901 85 Weight 160 kg 150.8 kg General appearance: PRESENT: no acute distress, cooperative, morbidly obese, well-developed Respiratory exam: PRESENT: decreased breath sounds, rales, symmetrical, unlabored. ABSENT: rhonchi, wheezes Cardiovascular exam: PRESENT: irregular rhythm, +S1, +S2 GI/Abdominal exam: PRESENT: distended - Pendulous abdomen, normal bowel sounds, soft. ABSENT: guarding, tenderness Extremities exam: PRESENT: +2 edema Neurological exam: PRESENT: alert, awake, oriented to person, oriented to place, oriented to time, oriented to situation, CN II-XII grossly intact Psychiatric exam: PRESENT: appropriate affect, normal mood. ABSENT: agitated, anxious Focused psych exam: ABSENT: restlessness Results Laboratory Results: 08/11/18 03:53 08/11/18 03:53 08/11/18 08/11/18 03:53 03:53 WBC 5.6 RBC 5.60 H Hgb 15.8 Hct 48.1 MCV 86 MCH 28.2 MCHC 32.8 RDW 15.4 H Plt Count 77 L Sodium 137.8 Potassium 3.0 L* Chloride 98 Carbon Dioxide 30 Anion Gap 10 BUN 56 H Creatinine 1.39 H Est GFR ( Amer) > 60 Est GFR (Non-Af Amer) 50 L Glucose 214 H Calcium 8.2 L Phosphorus 4.2 Magnesium 1.7 Total Bilirubin 6.4 H AST 375 H ALT 432 H Alkaline Phosphatase 91 Total Protein 5.1 L Albumin 2.5 L 08/09/18 06:00 Bailey Catheter Urine Culture - Final NO GROWTH 2 DAYS 08/08/18 08/08/18 08/08/18 13:52 13:52 15:50 Creatine Kinase 85 CK-MB (CK-2) 3.00 Troponin I 0.037 NT-Pro-B Natriuret Pep 51588 H 08/08/18 08/09/18 08/09/18 20:45 03:15 09:20 Creatine Kinase CK-MB (CK-2) Troponin I 0.036 0.045 0.031 NT-Pro-B Natriuret Pep 08/11/18 08/11/18 08/11/18 03:53 03:53 11:37 Creatine Kinase 30 L 29 L CK-MB (CK-2) 0.97 Troponin I 0.071 NT-Pro-B Natriuret Pep 08/11/18 11:37 Creatine Kinase CK-MB (CK-2) 0.97 Troponin I 0.067 NT-Pro-B Natriuret Pep Impressions: Abdomen/Pelvis CT 08/08/18 15:27 IMPRESSION: Large bilateral pleural effusions. Upper abdominal ascites. Marked anasarca. Minimal contrast seen in the portal vein, SMV, splenic vein. Possibly related to timing and right heart failure. Chest X-Ray 08/09/18 06:00 IMPRESSION: Decrease the left pleural effusion. Improvement in the vascular congestion. Renal Ultrasound 08/10/18 00:00 IMPRESSION: 1. Examination is very limited due to the patient's body habitus. The left kidney was not visualized. 2. No evidence of hydronephrosis on the right. 3. Bailey catheter present within the urinary bladder. 4. Incidentally mild to moderate right pleural effusion. Assessment & Plan - Diagnosis (1) Congestive heart failure Qualifiers: Heart failure type: right-sided Heart failure chronicity: acute Qualified Code(s): I50.811 - Acute right heart failure Is this a current diagnosis for this admission?: Yes Plan: Excellent response to diuresis. Over 12 L off. Continue diuretic regimen. (2) Acute respiratory failure with hypoxia Is this a current diagnosis for this admission?: Yes Plan: Currently down to nasal cannula. He also reports no orthopnea. (3) Acute renal failure Qualifiers: Acute renal failure type: unspecified Qualified Code(s): N17.9 - Acute kidney failure, unspecified Is this a current diagnosis for this admission?: Yes Plan: More likely acute on chronic. Appreciate Dr. Henry consultation. (4) Liver failure without hepatic coma Qualifiers: Liver failure chronicity: acute Qualified Code(s): K72.00 - Acute and subacute hepatic failure without coma Is this a current diagnosis for this admission?: Yes Plan: Transaminases slowly improving. Bilirubin was decreasing but is higher today. We will continue to monitor. (5) Hyperkalemia Is this a current diagnosis for this admission?: Yes Plan: With the aggressive diuresis he is now hypokalemic. Monitor potassium. Aim for a serum potassium of 4.0 or better. 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 Glucoses are staying below 200. - Time Time Spent with patient: 15-24 minutes Medications reviewed and adjusted accordingly: Yes Anticipated discharge: Home
[2018-08-11] MEDS ORDERED: DIGOXIN INJ 0.5 MG/2 ML AMPULE IV ONE (13:00)
--- NOTE | 2018-08-11 14:02 | RADIOLOGY REPORT (SQ) ---
EXAM DESCRIPTION: CHEST SINGLE VIEW COMPLETED DATE/TIME: 08/11/2018 1:41 pm REASON FOR STUDY: pleural effusions COMPARISON: 08/09/2018 EXAM PARAMETERS: NUMBER OF VIEWS: One view. TECHNIQUE: Single frontal radiographic view of the chest acquired. RADIATION DOSE: NA LIMITATIONS: None. FINDINGS: LUNGS AND PLEURA: There is opacification in the left base. MEDIASTINUM AND HILAR STRUCTURES: No masses. Contour normal. HEART AND VASCULAR STRUCTURES: Borderline heart size. No pulmonary edema. BONES: No acute findings. HARDWARE: None in the chest. OTHER: No other significant finding. IMPRESSION: Borderline heart size without pulmonary edema. There is opacification the left base leatha t could represent loculated pleural effusion or pneumonia. TECHNICAL DOCUMENTATION: JOB ID: [id number] [employer]- All Rights Reserved Reading location - IP/workstation name: [email or web address]
--- NOTE | 2018-08-11 15:36 | EKG REPORT ---
SEVERITY:- ABNORMAL ECG - ATRIAL FIBRILLATION vs MAT VENTRICULAR PREMATURE COMPLEX NONSPECIFIC INTRAVENTRICULAR CONDUCTION DELAY LATERAL INFARCT, AGE INDETERMINATE CONSIDER ANTEROSEPTAL INFARCT ST DEPRESSION, CONSIDER ISCHEMIA, INF LEADS REC REPEAK EKG TO EVALUATE HEART RHYTHM : Confirmed by: Lyndsey Guerra 11-Aug-2018 15:35:52
--- NOTE | 2018-08-11 15:37 | EKG REPORT ---
SEVERITY:- ABNORMAL ECG - ATRIAL FIBRILLATION RUN OF VENTRICULAR PREMATURE COMPLEXES NONSPECIFIC INTRAVENTRICULAR CONDUCTION DELAY EXTENSIVE ANTERIOR INFARCT, ACUTE : Confirmed by: Lyndsey Guerra 11-Aug-2018 15:36:15
[2018-08-11] MEDS: DOBUTAMINE HCL/D5W 500 MG/250 ML RTUINJ IV PRN (17:03)
[2018-08-11 19:37] LABS: CREATINE KINASE MB 0.93 ng/mL (<4.55); TROPONIN I 0.08 ng/mL
--- NOTE | 2018-08-11 20:35 | XCELERA REPORT ---
[address] [address] Transthoracic Echocardiogram Report Name: RONALDO HOOKER Age: 73 yrs Gender: Male : 1945 Patient Status: Inpatient Patient Location: [address] [place] [address] Study Date: 08/10/2018 10:52 AM Procedure: A two-dimensional transthoracic echocardiogram with color flow and Doppler was performed. The study was technically difficult with many images being suboptimal in quality. Reason For Study: acute chf History: CHF. Ordering Physician: FANNY PATEL Performed By: Madiha Georges Interpretation Summary There is normal left ventricular wall thickness. LV EF is 25% Left ventricular systolic function is severely reduced. There is severe global hypokinesis of the left ventricle. Septal motion is consistent with conduction abnormality There is no thrombus. The right ventricle is moderately dilated. The right atrium is mildly dilated. The left atrium is moderately dilated. There is no evidence of mitral valve prolapse. There is no vegetation seen on the mitral valve. There is no mitral valve stenosis. There is a mild amount of mitral regurgitation There is no aortic valvular vegetation. There is no aortic valve stenosis There is no LVOT obstruction. No aortic regurgitation is present. There is no tricuspid stenosis. There is no pulmonic valvular stenosis. There is a trace amount of pulmonic regurgitation LV diastolic function could not be adequately assessed due to atrial fibrilation. The aortic root is not well visualized but is probably normal size. The inferior vena cava appeared dilated and did not change with respiration (RAP > 20 mmHg) There is no pericardial effusion. Left greater jaquez rigth pleural effusions. Mild ,perhaps moderate TR..At least moderate pulmonary hypertension.RVSP is atleast 54 mm of Hg , with RA mean of 20 or greater. MMode/2D Measurements & Calculations RVDd: 4.6 cm LVIDd: 6.6 cm FS: 11.4 % Ao root diam: 2.5 cm IVSd: 1.0 cm LVIDs: 5.8 cm EDV(Teich): 220.9 ml Ao root area: 4.9 cm2 LVPWd: 1.1 cm ESV(Teich): 167.6 ml EF(Teich): 24.1 % Doppler Measurements & Calculations Ao V2 max: LV V1 max PG: PA V2 max: PI end-d memo: 66.7 cm/sec 1.3 mmHg 56.7 cm/sec 138.0 cm/sec Ao max P.8 mmHg LV V1 max: PA max P.5 cm/sec 1.3 mmHg TR max memo: 291.9 cm/sec TR max P.1 mmHg Left Ventricle The left ventricle is moderately dilated. There is normal left ventricular wall thickness. LV EF is 25%. Left ventricular systolic function is severely reduced. LV diastolic function could not be adequately assessed due to atrial fibrilation. There is severe global hypokinesis of the left ventricle. Septal motion is consistent with conduction abnormality. There is no thrombus. Right Ventricle The right ventricle is moderately dilated. The right ventricular systolic function is moderately reduced. Atria The right atrium is mildly dilated. The left atrium is moderately dilated. Mitral Valve There is no evidence of mitral valve prolapse. There is no vegetation seen on the mitral valve. There is no mitral valve stenosis. There is a mild amount of mitral regurgitation. Aortic Valve There is no aortic valvular vegetation. There is no aortic valve stenosis. There is no LVOT obstruction. No aortic regurgitation is present. Tricuspid Valve There is no tricuspid stenosis. Mild ,perhaps moderate TR..At least moderate pulmonary hypertension.RVSP is atleast 54 mm of Hg , with RA mean of 20 or greater. Pulmonic Valve There is no pulmonic valvular stenosis. There is a trace amount of pulmonic regurgitation. Great Vessels The aortic root is not well visualized but is probably normal size. The inferior vena cava appeared dilated and did not change with respiration (RAP > 20 mmHg). Effusions There is no pericardial effusion. Left greater jaquez rigth pleural effusions. : FANNY PATEL > Ingrid Blanc
[2018-08-11] MEDS: POTASSIUM CHLORIDE 10 MEQ CAPSULE.ER PO SCH (21:11)
--- NOTE | 2018-08-11 22:22 | Progress Note ---
Provider Note Provider Note: CARDIOLOGY PROGRESS NOTES by Dr. Ingrid Blanc on 08/11/2018. OBJECTIVE: The patient states he is feeling much better he has only mild shortness of breath. He is off the BiPAP. He has diuresed well. Yesterday I had increased the patient's Lasix from 40 mg IV every 12 hours to 40 mg IV every 8 hours. Also started him on a dobutamine drip at 2.55 mcg/kg/min. With this the patient has had very good diuresis. The patient does have some degree of orthopnea, which is much improved compared to yesterday. He has no PND. His leg edema is also much improved, with there being only mild leg edema. He denies any chest pain or discomfort. There is no shortness of breath at rest. His monitor and EKG shows rhythm consistent with atrial fibrillation. He has a nonspecific IVCD, of the left bundle branch block type pattern, with frequent ventricular ectopic beats. There is no TIA CVA symptoms. The patient denies any dizziness or near syncope or syncope. Surprisingly he has no palpitations. Next PHYSICAL EXAMINATION: The patient is morbidly obese. He is well-groomed. At present in no acute distress. Selected Entries 08/11/18 11:00 Temperature 97.7 F Temperature Oral Source Pulse Rate 107 H Respiratory 20 Rate Blood Pressure 135/40 H [Left Upper Arm ] Blood Pressure 71 Mean [Left Upper Arm] Blood Pressure Sitting Position [Left Upper Arm] O2 Sat by Pulse 97 Oximetry Oxygen Flow 4.5 Rate HEAD: Is atraumatic normocephalic. EYES: His pupils are equal round regular reactive to light accommodation there is no conjunctival pallor there is no scleral icterus. ENT: Is negative. NECK: Supple. There is mild JVD still present. Carotids are equal there is no bruit. There is no lymphadenopathy. There is no goiter. LUNGS: Shows absent breath sounds and dullness in the left base. Rest of the lungs are clear there is no rales of CHF today. There is no chest wall tenderness. S1-S2 is heard S1 is of variable intensity. There is no S3 gallop there is no S4 gallop. There is systolic murmur of mitral regurgitation and tricuspid regurgitation present. There is no murmur of aortic stenosis or aortic regurgitation. There is no rub. Abdomen: Is obese. Nontender. Bowel sounds are well heard. There is no hepatosplenomegaly. EXTRE MITIES: Femorals are deep. Femorals are diminished. There is no femoral bruits. Leg pulses are diminished. There is mild pedal edema. There is no DVT or cellulitis. There is no calf tenderness. There is no cyanosis or clubbing. ENGINEERING ASSISTANT: The patient is conscious awake alert oriented x3 with no focal deficits. PSYCHIATRIC: The patient judgment and insight are intact his affect is normal. 08/11/18 08/11/18 08/11/18 03:53 03:53 05:57 WBC 5.6 RBC 5.60 H Hgb 15.8 Hct 48.1 MCV 86 MCH 28.2 MCHC 32.8 RDW 15.4 H Plt Count 77 L Sodium 137.8 Potassium 3.0 L* Chloride 98 Carbon Dioxide 30 Anion Gap 10 BUN 56 H Creatinine 1.39 H Est GFR (Non-Af Amer) 50 L Glucose 214 H POC Glucose 197 H Calcium 8.2 L Phosphorus 4.2 Magnesium 1.7 Total Bilirubin 6.4 H Direct Bilirubin 4.1 H Neonat Total Bilirubin Not Reportable Neonat Direct Bilirubin Not Reportable Neonat Indirect Bili Not Reportable AST 375 H ALT 432 H Alkaline Phosphatase 91 Creatine Kinase 30 L CK-MB (CK-2) Troponin I Total Protein 5.1 L Albumin 2.5 L 08/11/18 08/11/18 11:37 11:37 WBC RBC Hgb Hct MCV MCH MCHC RDW Plt Count Sodium Potassium Chloride Carbon Dioxide Anion Gap BUN Creatinine Est GFR (Non-Af Amer) Glucose POC Glucose Calcium Phosphorus Magnesium Total Bilirubin Direct Bilirubin Neonat Total Bilirubin Neonat Direct Bilirubin Neonat Indirect Bili AST ALT Alkaline Phosphatase Creatine Kinase 29 L CK-MB (CK-2) 0.97 Troponin I 0.067 Total Protein Albumin CHEST X-ray: Shows cardiomegaly. No CHF. There is left pleural effusion still present. EKG: Shows atrial fibrillation. IVCD of the nonspecific type and of the atypical left bundle branch block pattern. There is frequent ventricular ec topics. ECHOCARDIOGRAM done yesterday shows severely reduced LV ejection fraction consistent with cardiomyopathy with a LV ejection fraction 25%. There is at least moderate pulmonary hypertension with right ventricular systolic pressure of 54 mmHg with a mean of at least 20. [The IVC is dilated and does not vary with respirations, and hence right atrial mean is greater than 20]. The patient's 24-hour intake is 704 mL. Output is 9450 mL. 1. Congestive heart failure: Biventricular heart failure. Most likely the patient is acute on chronic left ventricular and right ventricular systolic he art failure. 2. Possible pneumonia. This I very much doubt. 3. Acute renal failure, renal function improving with the patient's current treatment regimen and management plan. 4. Diabetes mellitus, long-standing with probably underlying diabetic nephropathy. Insulin-dependent 5. Atrial fibrillation: Although the patient's Arthur Vascor requires that the patient be on chronic anticoagulation,but with the patient's abnormal liver function tests, and the patient's platelets being 77 will hold off on oral chronic anticoagulation therapy. This has been discussed with the patient and patient's . 6. Thrombocytopenia:? Etiology. There is no bleeding complications with this at present. Will closely follow 7. Moderate pulmonary hypertension: Continue current treatment. 8. Morbid obesity. 9. Hypokalemia: Replace potassium, which is being done. We will recheck potassium in the a.m. Later would recommend that the patient have a IV Lexiscan Cardiolite stress test to assess for underlying coronary artery disease. Medications reviewed management plan discussed with the attending physician on the case. Discussed with the patient patient's also. Note 45 minutes spent on the patient, with more than 50% of time spent in direct patient care. Note that the patient is a full code. His is his surrogate healthcare decision maker. Medical decision making is of high complexity. Will follow with you.
[2018-08-12] MEDS: NITROGLYCERIN 2% OINTMENT 1 GM PACKET TP SCH ×4 (00:02→17:42)
[2018-08-12 04:45] LABS: HEMATOCRIT 47.8 % (37.9-51.0); HEMOGLOBIN 15.8 g/dL (13.5-17.0); MEAN CORPUSCULAR HEMOGLOBIN 28.3 pg (27.0-33.4); MEAN CORPUSCULAR VOLUME 86 fl (80-97); RED BLOOD COUNT 5.58 10^6/uL (4.35-5.55); RED CELL DISTRIBUTION WIDTH 15.7 % (11.5-14.0); WHITE BLOOD COUNT 5.9 10^3/uL (4.0-10.5)
[2018-08-12 05:07] LABS: ALBUMIN 2.7 g/dL (3.5-5.0); ANION GAP 8 (5-19); BLOOD UREA NITROGEN 42 mg/dL (7-20); CALCIUM 8.2 mg/dL (8.4-10.2); CARBON DIOXIDE 39 mmol/L (22-30); CHLORIDE 92 mmol/L (98-107); GLUCOSE 209 mg/dL (75-110); PHOSPHORUS 3.6 mg/dL (2.5-4.5); SODIUM 138.6 mmol/L (137-145)
[2018-08-12 05:12] LABS: PLATELET COUNT 73 10^3/uL (150-450)
[2018-08-12] MEDS: FUROSEMIDE INJ/PF 40 MG/4 ML SDV IV SCH (05:47)
[2018-08-12] MEDS: FUROSEMIDE INJ/PF 20 MG/2 ML SDV IV SCH ×2 (10:13→17:42)
[2018-08-12] MEDS: FONDAPARINUX SODIUM INJ 2.5 MG/0.5 ML DISP.SYRIN SUBCUT SCH (10:13)
[2018-08-12] MEDS: PAROXETINE HCL 20 MG TABLET PO SCH (10:14)
[2018-08-12] MEDS: METOLAZONE 2.5 MG TABLET PO SCH (10:14)
[2018-08-12] MEDS: POTASSIUM CHLORIDE 10 MEQ CAPSULE.ER PO SCH ×3 (10:14→21:19)
[2018-08-12] MEDS: FAMOTIDINE 20 MG TABLET PO SCH ×2 (10:14→21:18)
[2018-08-12] MEDS: DOCUSATE SODIUM 100 MG CAPSULE PO SCH (10:14)
--- NOTE | 2018-08-12 10:47 | RADIOLOGY REPORT (SQ) ---
EXAM DESCRIPTION: PICC INSERTION; FLUORO/CV PLACEMENT; U/S GUIDE FOR VASCULAR ACCESS COMPLETED DATE/TIME: 08/12/2018 10:16 am REASON FOR STUDY: no access needs IV meds (severe CHF); NO ACCESS NEEDS IV MEDS COMPARISON: AP chest 08/11/2018 FLUOROSCOPY TIME: 26 seconds 2 digital C-arm fluoro images and 1 ultrasound images saved to PACS. TECHNIQUE: Fluoroscopic and ultrasound guided PICC placement. LIMITATIONS: None. PROCEDURE: After written consent and assessment were obtained, the patient was brought into the fluo roscopy room and placed supine on the table. Ultrasound evaluation of potential access sites were per formed. After successfully identifying a patent left basilic vein, the left arm was prepped and drape d in a sterile fashion along with the ultrasound probe. The entry site was anesthetized with 1% lidoc emeli. A 21 gauge 7 cm needle was advanced through the skin and into the basilic vein under live ultra sound guidance. An ultrasound image was saved to PACS confirming access site. A .018 guide wire was then inserted through the needle and into the venous system. The needle was then removed and an 11 b lade scalpel was used to make a 1cm skin incision. A 5 fr peel-away sheath was advanced over the wir e and into the venous system. A measurement was then made using the existing wire and live fluoroscop ic guidance. The wire was then removed and trimmed. The PICC was advanced through the peel-away sheat h and into the venous system. The peel-away sheath was removed and the catheter was adhered to the pa tients arm with a stat lock. The catheter was then aspirated and flushed and a sterile bandage was pl aced over the access site. A fluoroscopic spot image was saved to PACS confirming the catheter tip w ithin the superior vena cava. IMPRESSION: SUCCESSFUL PLACEMENT OF A 5 FR DUAL LUMEN 45 CM PICC IN THE LEFT BASILIC VEIN. COMMENT: Patient medication list reviewed: Yes- Quality ID# 130:Eligible professional attests to doc umenting in the medical record they obtained, updated, or reviewed the patient's current medications. . Quality ID 145: Final reports for procedures using fluoroscopy that document radiation exposure nickie stephen, or exposure time and number of fluorographic images (if radiation exposure indices are not avail able) Quality ID #76: The patient was prepped and draped using maximum sterile barrier technique including cap, mask, sterile gown, sterile gloves, a large sterile sheet, hand hygiene, and 2% Chlorhexidine fo r cutaneous antisepsis. When ultrasound is used, sterile ultrasound techniques are followed requiring sterile gel and sterile probes. TECHNICAL DOCUMENTATION: JOB ID: [id number] [employer]- All Rights Reserved rev-01/02 Reading location - IP/workstation name: [facility]
[2018-08-12] MEDS: INSULIN LISPRO 100 UNIT/ML 3 ML VIAL SUBCUT PRN ×2 (12:41→22:35)
[2018-08-12] MEDS: VALSARTAN 40 MG TABLET PO SCH ×2 (13:17→21:18)
[2018-08-12] MEDS: DIGOXIN 0.25 MG TABLET PO SCH (13:17)
[2018-08-12 13:52] LABS: ALANINE AMINOTRANSFERASE 334 U/L (21-72); ALBUMIN 2.7 g/dL (3.5-5.0); ALKALINE PHOSPHATASE 117 U/L (38-126); ASPARTATE AMINO TRANSFERASE 237 U/L (17-59); BILIRUBIN,DIRECT 3.1 mg/dL (0.0-0.4); BILIRUBIN,TOTAL 5.4 mg/dL (0.2-1.3); TOTAL PROTEIN 5.2 g/dL (6.3-8.2)
[2018-08-12] MEDS ORDERED: CALCIUM CARBONATE 500 MG TAB.CHEW PO PRN (15:42)
[2018-08-12] MEDS ORDERED: POTASSIUM CHLORIDE 10 MEQ CAPSULE.ER PO ONE (17:47)
--- NOTE | 2018-08-12 18:35 | PDOC PROGRESS REPORT ---
Subjective Progress Note for:: 08/12/18 Subjective:: The patient is sitting up in the chair on nasal cannula oxygen. He appears comfortable. He is in no acute distress. His is at the bedside. Reason For Visit: PNEUMONIA,ACUTE CONGESTIVE HEART FAILURE,ANASARCA Physical Exam Vital Signs: Temp Pulse Resp BP Pulse Ox 98.5 F 115 H 17 106/78 98 08/12/18 15:49 08/12/18 15:49 08/12/18 15:49 08/12/18 15:49 08/12/18 15:49 Intake & Output 08/11/18 08/12/18 08/13/18 06:59 06:59 06:59 Intake Total 714 1468 287 Output Total 9550 09443 1450 Balance -8836 -90370 -1163 Weight 150.8 kg 143.1 kg General appearance: PRESENT: no acute distress, morbidly obese - BMI 45, well- developed Head exam: PRESENT: atraumatic, normocephalic Mouth exam: PRESENT: dry mucosa, neck supple, tongue midline Neck exam: ABSENT: carotid bruit, lymphadenopathy, tenderness Respiratory exam: PRESENT: rales - Bilateral bases, symmetrical, unlabored. ABSENT: rhonchi, stridor, wheezes Cardiovascular exam: PRESENT: irregular rhythm GI/Abdominal exam: PRESENT: normal bowel sounds, soft, other - Pendulous abdomen. ABSENT: guarding, tenderness Gentrourinary exam: PRESENT: indwelling catheter Extremities exam: PRESENT: +1 edema Musculoskeletal exam: PRESENT: ambulatory - But still very weak Neurological exam: PRESENT: alert, awake, oriented to person, oriented to place, oriented to time, oriented to situation, CN II-XII grossly intact Psychiatric exam: PRESENT: appropriate affect, normal mood Focused psych exam: ABSENT: delusional, restlessness Skin exam: PRESENT: erythema - Mild. Both legs. Results Laboratory Results: 08/12/18 04:12 08/12/18 16:29 08/12/18 08/12/18 08/12/18 04:12 04:12 04:12 WBC 5.9 RBC 5.58 H Hgb 15.8 Hct 47.8 MCV 86 MCH 28.3 MCHC 33.0 RDW 15.7 H Plt Count 73 L Sodium 138.6 Potassium 2.8 L* Chloride 92 L Carbon Dioxide 39 H Anion Gap 8 BUN 42 H Creatinine 1.15 Est GFR ( Amer) > 60 Est GFR (Non-Af Amer) > 60 Glucose 209 H Calcium 8.2 L Phosphorus 3.6 Total Bilirubin 5.4 H AST 237 H ALT 334 H Alkaline Phosphatase 117 Total Protein 5.2 L Albumin 2.7 L 2.7 L 08/12/18 16:29 WBC RBC Hgb Hct MCV MCH MCHC RDW Plt Count Sodium Potassium 2.8 L* Chloride Carbon Dioxide Anion Gap BUN Creatinine Est GFR ( Amer) Est GFR (Non-Af Amer) Glucose Calcium Phosphorus Total Bilirubin AST ALT Alkaline Phosphatase Total Protein Albumin 08/08/18 08/08/18 08/08/18 13:52 13:52 15:50 Creatine Kinase 85 CK-MB (CK-2) 3.00 Troponin I 0.037 NT-Pro-B Natriuret Pep 28865 H 08/08/18 08/09/18 08/09/18 20:45 03:15 09:20 Creatine Kinase CK-MB (CK-2) Troponin I 0.036 0.045 0.031 NT-Pro-B Natriuret Pep 08/11/18 08/11/18 08/11/18 03:53 03:53 11:37 Creatine Kinase 30 L 29 L CK-MB (CK-2) 0.97 Troponin I 0.071 NT-Pro-B Natriuret Pep 08/11/18 08/11/18 08/11/18 11:37 19:05 19:05 Creatine Kinase 32 L CK-MB (CK-2) 0.97 0.93 Troponin I 0.067 0.080 NT-Pro-B Natriuret Pep Impressions: Abdomen/Pelvis CT 08/08/18 15:27 IMPRESSION: Large bilateral pleural effusions. Upper abdominal ascites. Marked anasarca. Minimal contrast seen in the portal vein, SMV, splenic vein. Possibly related to timing and right heart failure. Renal Ultrasound 08/10/18 00:00 IMPRESSION: 1. Examination is very limited due to the patient's body habitus. The left kidney was not visualized. 2. No evidence of hydronephrosis on the right. 3. Bailey catheter present within the urinary bladder. 4. Incidentally mild to moderate right pleural effusion. Chest X-Ray 08/11/18 00:00 IMPRESSION: Borderline heart size without pulmonary edema. There is opacification the left base that could represent loculated pleural effusion or pneumonia. Guidance Fluoroscopy 08/12/18 00:00 IMPRESSION: SUCCESSFUL PLACEMENT OF A 5 FR DUAL LUMEN 45 CM PICC IN THE LEFT BASILIC VEIN. Interventional Vascular Procedure 08/12/18 00:00 IMPRESSION: SUCCESSFUL PLACEMENT OF A 5 FR DUAL LUMEN 45 CM PICC IN THE LEFT BASILIC VEIN. PICC Line Insertion 08/12/18 00:00 IMPRESSION: SUCCESSFUL PLACEMENT OF A 5 FR DUAL LUMEN 45 CM PICC IN THE LEFT BASILIC VEIN. Assessment & Plan - Diagnosis (1) Congestive heart failure Qualifiers: Heart failure type: right-sided Heart failure chronicity: acute Qualified Code(s): I50.811 - Acute right heart failure Is this a current diagnosis for this admission?: Yes Plan: The dobutamine has been discontinued. He is on digoxin and valsartan. His metolazone has been discontinued but he remains on Lasix. He will need to follow a strict cardiac diet and continue his weight loss. He will follow-up with Dr. yao as an outpatient. (2) Acute respiratory failure with hypoxia Is this a current diagnosis for this admission?: Yes Plan: Secondary to his congestive heart failure. He is now down to nasal cannula oxygen. (3) Acute renal failure Qualifiers: Acute renal failure type: unspecified Qualified Code(s): N17.9 - Acute kidney failure, unspecified Is this a current diagnosis for this admission?: Yes Plan: The patient's GFR is now greater than 60. He tolerated the diuresis without any further injury to the kidney and in fact the kidney function has improved. (4) Liver failure without hepatic coma Qualifiers: Liver failure chronicity: acute Qualified Code(s): K72.00 - Acute and subacute hepatic failure without coma Is this a current diagnosis for this admission?: Yes Plan: Still unsure of the cause of the elevated transaminases. It could be passive congestion from his significant heart failure. His serum chemistries are correcting. There is no evidence of acute changes in the liver by CT scan. 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 (5) Hyperkalemia Is this a current diagnosis for this admission?: Yes Plan: Resolved with aggressive diuresis. In fact he has been markedly hypokalemic (6) Hypokalemia due to loss of potassium Is this a current diagnosis for this admission?: Yes Plan: With the tremendous diuresis the patient's potassium level has plummeted. We have been giving IV potassium daily and I have started the patient on oral potassium supplement. Now that the metolazone has been discontinued his diu resis should slow somewhat. We will need to continue to monitor his electrolytes daily and supplement as indicated. 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 He is on a cardiac and carbohydrate controlled diet in the hospital. He was taking m etformin 850 mg daily at home. I will resume this medication out of his renal function is normal. (8) Thrombocytopenia Is this a current diagnosis for this admission?: Yes Plan: The patient had a significant decrease in his platelet count while on Lovenox. He was changed to Arixtra. His platelet count is still low but has been stable. (9) Morbid obesity with BMI of 45.0-49.9, adult Is this a current diagnosis for this admission?: Yes Plan: I told the patient that he will need to stay on a diabetic cardiac diet and he needs to be strict about it. He still needs to lose a lot of weight over time in addition to his fluid weight loss. - Time Time Spent with patient: 15-24 minutes Medications reviewed and adjusted accordingly: Yes Anticipated discharge: Home
[2018-08-12] MEDS: POTASSI CL 20 MEQ/50 ML RIDER 20 MEQ/50 ML RTUPB IV SCH ×3 (18:37→22:39)
--- NOTE | 2018-08-12 20:42 | Progress Note ---
Provider Note Provider Note: CARDIOLOGY PROGRESS NOTES by Dr. Ingrid Blanc on 08/12/2018. SUBJECTIVE: The patient feels much better. He denies any shortness of breath. There is no chest pain or discomfort. He continues to be in atrial fibrillation. There is no ventricular arrhythmias seen. He does have some orthopnea but no PND is leg edema is much improved. The patient is very reluctant to radiate to the fluid restriction. Also he is not very enthusiastic or cooperative with doing physical therapy. In view of the lack of IV access he does have a PICC line. SUBJECTIVE: The patient is morbidly obese. He is well-groomed. He is in no acute distress. Selected Entries 08/12/18 12:00 Temperature 98.4 F Temperature Axillary Source Pulse Rate 116 H Respiratory 20 Rate Blood Pressure 101/78 Blood Pressure 85 Mean BP Location Right Arm BP Position Sitting O2 Sat by Pulse 100 Oximetry Oxygen Flow 5.00 Rate Oxygen Delivery Nasal Cannula Method HEAD: Is atraumatic normocephalic. EYES: His pupils are equal round regular reactive to light accommodation there is no conjunctival pallor there is no scleral icterus. ENT: Is negative. NECK: Supple. There is mild JVD still present. Carotids are equal there is no bruit. There is no lymphadenopathy. There is no goiter. LUNGS: Shows absent breath sounds and dullness in the left base. Rest of the lungs are clear there is no rales of CHF today. There is no chest wall tenderness. S1-S2 is heard S1 is of variable intensity. There is no S3 gallop there is no S4 gallop. There is systolic murmur of mitral regurgitation and tricuspid regurgitation present. There is no murmur of aortic stenosis or aortic regurgitation. There is no rub. Abdomen: Is obese. Nontender. Bowel sounds are well heard. There is no hepatosplenomegaly. EXTREMITIES: Femorals are deep. Femorals are diminished. There is no femoral bruits. Leg pulses are diminished. There is mild pedal edema. There is no DVT or cellulitis. There is no calf tenderness. There is no cyanosis or clubbing. DIAL BUFFER: The patient is conscious awake alert oriented x3 with no focal deficits. PSYCHIATRIC: The patient judgment and insight are intact his affect is normal. 08/11/18 08/11/18 08/11/18 03:53 11:37 11:37 WBC RBC Hgb Hct MCV MCH MCHC RDW Plt Count Sodium 137.8 Potassium 3.0 L* Chloride 98 Carbon Dioxide 30 Anion Gap 10 BUN 56 H Creatinine 1.39 H Est GFR (Non-Af Amer) 50 L Glucose 214 H Calcium 8.2 L Phosphorus 4.2 Magnesium 1.7 Total Bilirubin 6.4 H Direct Bilirubin 4.1 H Neonat Total Bilirubin Not Reportable Neonat Direct Bilirubin Not Reportable Neonat Indirect Bili Not Reportable AST 375 H ALT 432 H Alkaline Phosphatase 91 Creatine Kinase 30 L 29 L CK-MB (CK-2) 0.97 Troponin I 0.067 Total Protein 5.1 L Albumin 2.5 L 08/12/18 08/12/18 08/12/18 04:12 04:12 04:12 WBC 5.9 RBC 5.58 H Hgb 15.8 Hct 47.8 MCV 86 MCH 28.3 MCHC 33.0 RDW 15.7 H Plt Count 73 L Sodium 138.6 Potassium 2.8 L* Chloride 92 L Carbon Dioxide 39 H Anion Gap 8 BUN 42 H Creatinine 1.15 Est GFR (Non-Af Amer) > 60 Glucose 209 H Calcium 8.2 L Phosphorus 3.6 Magnesium Total Bilirubin 5.4 H Direct Bilirubin 3.1 H Neonat Total Bilirubin Not Reportable Neonat Direct Bilirubin Not Reportable Neonat Indirect Bili Not Reportable AST 237 H ALT 334 H Alkaline Phosphatase 117 Creatine Kinase CK-MB (CK-2) Troponin I Total Protein 5.2 L Albumin 2.7 L The patient's 24-hour intake is 1468 mL. Output is 12,300 mL. The patient has lots 16.7 kg since admission. 1. Congestive heart failure: Biventricular heart failure. Most likely the patient is acute on chronic left ventricular and right ventricular systolic heart failure. 2. Possible pneumonia. This I very much doubt. 3. Acute renal failure, renal function improving with the patient's current treatment regimen and management plan. 4. Diabetes mellitus, long-standing with probably underlying diabetic nephropathy. Insulin-dependent 5. Atrial fibrillation: Although the patient's Arthur Vascor requires that the patient be on chronic anticoagulation, with the patient's abnormal liver function tests, and the patient's platelets being 77 will hold off on oral chronic anticoagulation therapy. This has been discussed with the patient and patient's . 6. Thrombocytopenia:? Etiology. There is no bleeding complications with this at present. Will closely follow 7. Moderate pulmonary hypertension: Continue current treatment. 8. Morbid obesity. 9. Hypokalemia: Replace potassium, which is being done. We will recheck potassium in 4 hours, to make sure it is reached normal levels. 10. Abnormal liver function tests: Avoid hepatotoxic drugs. Most likely this is secondary to the patient's hepatic congestion treated due to heart failure. Note the LFTs are improving. Later would recommend that the patient have a IV Lexiscan Cardiolite stress test to assess for underlying coronary artery disease. Medications reviewed management plan discussed with the attending physician on the case. Discussed with the patient patient's also. Note 45 minutes spent on the patient, with more than 50% of time spent in direct patient care. Note that the patient is a full code. His is his surrogate healthcare decision maker. Medical decision making is of high complexity. Will follow with you.
[2018-08-13] MEDS: NITROGLYCERIN 2% OINTMENT 1 GM PACKET TP SCH ×4 (00:08→17:58)
[2018-08-13] MEDS: POTASSI CL 20 MEQ/50 ML RIDER 20 MEQ/50 ML RTUPB IV SCH (00:47)
[2018-08-13 04:37] LABS: ABSOLUTE EOSINOPHILS # (AUTO) 0.1 10^3/uL (0.0-0.6); ABSOLUTE LYMPHOCYTES (AUTO) 0.7 10^3/uL (0.5-4.7); ABSOLUTE NEUT (AUTO) 6.9 10^3/uL (1.7-8.2); BASOPHILS % (AUTO) 0.4 % (0-2); EOSINOPHILS % (AUTO) 0.8 % (0-6); HEMATOCRIT 48.3 % (37.9-51.0); HEMOGLOBIN 15.7 g/dL (13.5-17.0); LYMPHOCYTES % (AUTO) 8.6 % (13-45); MEAN CORPUSCULAR HEMOGLOBIN 28.2 pg (27.0-33.4); MEAN CORPUSCULAR HGB CONC 32.5 g/dL (32.0-36.0); MEAN CORPUSCULAR VOLUME 87 fl (80-97); MONOCYTES % (AUTO) 11.5 % (3-13); RED BLOOD COUNT 5.56 10^6/uL (4.35-5.55); RED CELL DISTRIBUTION WIDTH 15.9 % (11.5-14.0); SEGMENTED NEUTROPHILS % (AUTO) 78.7 % (42-78); TOTAL CELLS COUNTED % (AUTO) 100 %; WHITE BLOOD COUNT 8.7 10^3/uL (4.0-10.5)
[2018-08-13 04:50] LABS: ALANINE AMINOTRANSFERASE 240 U/L (21-72); ALBUMIN 2.9 g/dL (3.5-5.0); ALKALINE PHOSPHATASE 130 U/L (38-126); ASPARTATE AMINO TRANSFERASE 148 U/L (17-59); BILIRUBIN,DIRECT 3.3 mg/dL (0.0-0.4); BILIRUBIN,TOTAL 5.8 mg/dL (0.2-1.3); BLOOD UREA NITROGEN 42 mg/dL (7-20); CALCIUM 8.3 mg/dL (8.4-10.2); CHLORIDE 91 mmol/L (98-107); GLUCOSE 209 mg/dL (75-110); SODIUM 140.8 mmol/L (137-145); TOTAL PROTEIN 5.4 g/dL (6.3-8.2)
[2018-08-13 04:56] LABS: ANION GAP 7 (5-19); POTASSIUM 4.1 mmol/L (3.6-5.0)
[2018-08-13 04:57] LABS: CARBON DIOXIDE 43 mmol/L (22-30)
[2018-08-13 05:26] LABS: PLATELET COUNT 84 10^3/uL (150-450)
[2018-08-13 08:04] LABS: POTASSIUM 2.8 mmol/L (3.6-5.0)
[2018-08-13] MEDS: INSULIN LISPRO 100 UNIT/ML 3 ML VIAL SUBCUT PRN ×3 (09:20→17:59)
[2018-08-13] MEDS: DOCUSATE SODIUM 100 MG CAPSULE PO SCH (10:22)
[2018-08-13] MEDS: FUROSEMIDE INJ/PF 20 MG/2 ML SDV IV SCH ×2 (10:23→17:57)
[2018-08-13] MEDS: VALSARTAN 40 MG TABLET PO SCH ×2 (10:24→22:06)
[2018-08-13] MEDS: FAMOTIDINE 20 MG TABLET PO SCH ×2 (10:24→22:07)
[2018-08-13] MEDS: POTASSIUM CHLORIDE 10 MEQ CAPSULE.ER PO SCH ×4 (10:24→22:07)
[2018-08-13] MEDS: DIGOXIN 0.25 MG TABLET PO SCH (10:24)
[2018-08-13] MEDS: PAROXETINE HCL 20 MG TABLET PO SCH (10:25)
[2018-08-13] MEDS: METFORMIN HCL 850 MG TABLET PO SCH (10:25)
[2018-08-13] MEDS: FONDAPARINUX SODIUM INJ 2.5 MG/0.5 ML DISP.SYRIN SUBCUT SCH (12:37)
--- NOTE | 2018-08-13 15:29 | PDOC PROGRESS REPORT ---
Subjective Progress Note for:: 08/13/18 Subjective:: Doing much better, breathing better. ROS: No fever or chills, no chest pain or palpitations. Feels lower extremity swelling getting better. Denies nausea or vomiting. Reason For Visit: PNEUMONIA,ACUTE CONGESTIVE HEART FAILURE,ANASARCA Physical Exam Vital Signs: Temp Pulse Resp BP Pulse Ox 98.1 F 114 H 20 107/67 97 08/13/18 09:09 08/13/18 09:09 08/13/18 09:09 08/13/18 09:09 08/13/18 09:09 Intake & Output 08/12/18 08/13/18 08/14/18 06:59 06:59 06:59 Intake Total 1468 487 Output Total 44720 3225 Balance -08420 -6310 Weight 143.1 kg 139 kg General appearance: PRESENT: no acute distress, morbidly obese - BMI 45, well- developed Head exam: PRESENT: atraumatic, normocephalic Mouth exam: PRESENT: dry mucosa, neck supple, tongue midline Neck exam: ABSENT: carotid bruit, lymphadenopathy, tenderness Respiratory exam: PRESENT: rales - Bilateral bases, symmetrical, unlabored. ABSENT: rhonchi, stridor, wheezes Cardiovascular exam: PRESENT: irregular rhythm GI/Abdominal exam: PRESENT: normal bowel sounds, soft, other - Pendulous abdomen. ABSENT: guarding, tenderness Gentrourinary exam: PRESENT: indwelling catheter Extremities exam: PRESENT: +2 edema Musculoskeletal exam: PRESENT: ambulatory - But still very weak Neurological exam: PRESENT: alert, awake, oriented to person, oriented to place, oriented to time, oriented to situation, CN II-XII grossly intact Psychiatric exam: PRESENT: appropriate affect, normal mood Focused psych exam: ABSENT: delusional, restlessness Skin exam: PRESENT: erythema - Mild. Both legs. Results Laboratory Results: 08/13/18 04:20 08/13/18 04:20 08/12/18 08/12/18 08/13/18 04:12 16:29 04:20 WBC 8.7 RBC 5.56 H Hgb 15.7 Hct 48.3 MCV 87 MCH 28.2 MCHC 32.5 RDW 15.9 H Plt Count 84 L Seg Neutrophils % 78.7 H Lymphocytes % 8.6 L Monocytes % 11.5 Eosinophils % 0.8 Basophils % 0.4 Absolute Neutrophils 6.9 Absolute Lymphocytes 0.7 Absolute Monocytes 1.0 Absolute Eosinophils 0.1 Absolute Basophils 0.0 Sodium Potassium 2.8 L* 2.8 L* Chloride Carbon Dioxide Anion Gap BUN Creatinine Est GFR ( Amer) Est GFR (Non-Af Amer) Glucose Calcium Magnesium Total Bilirubin AST ALT Alkaline Phosphatase Total Protein Albumin 08/13/18 04:20 WBC RBC Hgb Hct MCV MCH MCHC RDW Plt Count Seg Neutrophils % Lymphocytes % Monocytes % Eosinophils % Basophils % Absolute Neutrophils Absolute Lymphocytes Absolute Monocytes Absolute Eosinophils Absolute Basophils Sodium 140.8 Potassium 4.1 D Chloride 91 L Carbon Dioxide 43 H* Anion Gap 7 BUN 42 H Creatinine 1.28 H Est GFR ( Amer) > 60 Est GFR (Non-Af Amer) 55 L Glucose 209 H Calcium 8.3 L Magnesium 1.7 Total Bilirubin 5.8 H AST 148 H ALT 240 H Alkaline Phosphatase 130 H Total Protein 5.4 L Albumin 2.9 L 08/08/18 13:52 Blood Blood Culture - Final NO GROWTH IN 5 DAYS 08/08/18 08/08/18 08/08/18 13:52 13:52 15:50 Creatine Kinase 85 CK-MB (CK-2) 3.00 Troponin I 0.037 NT-Pro-B Natriuret Pep 46889 H 08/08/18 08/09/18 08/09/18 20:45 03:15 09:20 Creatine Kinase CK-MB (CK-2) Troponin I 0.036 0.045 0.031 NT-Pro-B Natriuret Pep 08/11/18 08/11/18 08/11/18 03:53 03:53 11:37 Creatine Kinase 30 L 29 L CK-MB (CK-2) 0.97 Troponin I 0.071 NT-Pro-B Natriuret Pep 08/11/18 08/11/18 08/11/18 11:37 19:05 19:05 Creatine Kinase 32 L CK-MB (CK-2) 0.97 0.93 Troponin I 0.067 0.080 NT-Pro-B Natriuret Pep Impressions: Abdomen/Pelvis CT 08/08/18 15:27 IMPRESSION: Large bilateral pleural effusions. Upper abdominal ascites. Marked anasarca. Minimal contrast seen in the portal vein, SMV, splenic vein. Possibly related to timing and right heart failure. Renal Ultrasound 08/10/18 00:00 IMPRESSION: 1. Examination is very limited due to the patient's body habitus. The left kidney was not visualized. 2. No evidence of hydronephrosis on the right. 3. Bailey catheter present within the urinary bladder. 4. Incidentally mild to moderate right pleural effusion. Chest X-Ray 08/11/18 00:00 IMPRESSION: Borderline heart size without pulmonary edema. There is opacification the left base that could represent loculated pleural effusion or pneumonia. Guidance Fluoroscopy 08/12/18 00:00 IMPRESSION: SUCCESSFUL PLACEMENT OF A 5 FR DUAL LUMEN 45 CM PICC IN THE LEFT BASILIC VEIN. Interventional Vascular Procedure 08/12/18 00:00 IMPRESSION: SUCCESSFUL PLACEMENT OF A 5 FR DUAL LUMEN 45 CM PICC IN THE LEFT BASILIC VEIN. PICC Line Insertion 08/12/18 00:00 IMPRESSION: SUCCESSFUL PLACEMENT OF A 5 FR DUAL LUMEN 45 CM PICC IN THE LEFT BASILIC VEIN. Assessment & Plan - Diagnosis (1) Congestive heart failure Qualifiers: Heart failure type: right-sided Heart failure chronicity: acute Qualified Code(s): I50.811 - Acute right heart failure Is this a current diagnosis for this admission?: Yes (2) Liver failure without hepatic coma Qualifiers: Liver failure chronicity: acute Qualified Code(s): K72.00 - Acute and subacute hepatic failure without coma Is this a current diagnosis for this admission?: Yes (3) Acute renal failure Qualifiers: Acute renal failure type: unspecified Qualified Code(s): N17.9 - Acute kidney failure, unspecified Is this a current diagnosis for this admission?: Yes (4) Acute respiratory failure with hypoxia Is this a current diagnosis for this admission?: Yes (5) Morbid obesity with BMI of 45.0-49.9, adult Is this a current diagnosis for this admission?: Yes (6) Thrombocytopenia Is this a current diagnosis for this admission?: Yes - Plan Summary Plan Summary: Patient with biventricular heart failure. He is diuresing very well. His lipase is negative at 10 L today. We will continue management. Continue strict I and Os. He is on Arixtra for thrombocytopenia, and his platelet is slightly improved today. Will continue. For SHELLEY, creatinine is stable. We will continue to follow. Will continue management otherwise.
--- NOTE | 2018-08-13 19:54 | Progress Note ---
Provider Note Provider Note: CARDIOLOGY PROGRESS NOTES london Blanc on 08/13/2018. SUBJECTIVE: The patient is able to lie down flat, without orthopnea. He denies any chest pain or discomfort. The patient continues to be in atrial fibrillation with a ventricular response in the 100s. Unable to put him on a beta-isaura at present in view of the patient's blood pressure being low. He denies any PND. His leg edema is much improved. There is no TIA or CVA symptoms. There is no bleeding with the patient having low platelets. The patient is slightly better. His renal function is slightly worse off than yesterday. There is no TIA or CVA symptoms. The patient denies any cough or sputum production. There is no wheezing. At rest the patient denies any shortness of breath. Selected Entries 08/13/18 08/13/18 11:42 16:00 Temperature 98.7 F Temperature Oral Source Pulse Rate 113 H Respiratory 22 H Rate Blood Pressure 108/69 Blood Pressure 82 Mean BP Location Right Arm BP Position Supine O2 Sat by Pulse 97 Oximetry Oxygen Flow 4.50 Rate Oxygen Delivery Nasal Cannula Method HEAD: Is atraumatic normocephalic. EYES: His pupils are equal round regular reactive to light accommodation there is no conjunctival pallor there is no scleral icterus. ENT: Is negative. NECK: Supple. There is mild JVD still present. Carotids are equal there is no bruit. There is no lymphadenopathy. There is no goiter. LUNGS: Shows absent breath sounds and dullness in the left base. Rest of the lungs are clear there is no rales of CHF today. There is no chest wall tenderness. S1-S2 is heard S1 is of variable intensity. There is no S3 gallop there is no S4 gallop. There is systolic murmur of mitral regurgitation and tricuspid regurgitation present. There is no murmur of aortic stenosis or aortic regurgitation. There is no rub. Abdomen: Is obese. Nonte nder. Bowel sounds are well heard. There is no hepatosplenomegaly. EXTREMITIES: Femorals are deep. Femorals are diminished. There is no femoral bruits. Leg pulses are diminished. There is mild pedal edema. There is no DVT or cellulitis. There is no calf tenderness. There is no cyanosis or clubbing. 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 PSYCHIATRIC: The patient judgment and insight are intact his affect is normal. 08/13/18 08/13/18 04:20 04:20 WBC 8.7 RBC 5.56 H Hgb 15.7 Hct 48.3 MCV 87 MCH 28.2 MCHC 32.5 RDW 15.9 H Plt Count 84 L Seg Neutrophils % 78.7 H Lymphocytes % 8.6 L Sodium 140.8 Potassium 4.1 D Chloride 91 L Carbon Dioxide 43 H* Anion Gap 7 BUN 42 H Creatinine 1.28 H Est GFR (Non-Af Amer) 55 L Glucose 209 H Calcium 8.3 L Magnesium 1.7 Total Bilirubin 5.8 H Direct Bilirubin 3.3 H Neonat Total Bilirubin Not Reportable Neonat Direct Bilirubin Not Reportable Neonat Indirect Bili Not Reportable AST 148 H ALT 240 H Alkaline Phosphatase 130 H Total Protein 5.4 L Albumin 2.9 L Digoxin 1.00 The patient's 24-hour intake is 487 mL. Output is 3225 mL. The patient has lots 16.7 kg since admission. 1. Congestive heart failure: Biventricular heart failure. Most likely the patient is acute on chronic left ventricular and right ventricular systolic heart failure. This is improving 2. Possible pneumonia. This I very much doubt. 3. Acute renal failure, renal function improving with the patient's current treatment regimen and management plan. 4. Diabetes mellitus, long-standing with probably underlying diabetic nephropathy. Insulin-dependent 5. Atrial fibrillation: Although the patient's Arthur Vascor requires that the patient be on chronic anticoagulation, with the patient's abnormal liver function tests, and the patient's platelets being low will hold off on oral ch ronic anticoagulation therapy. This has been discussed with the patient and patient's . Also will decrease the patient's Nitropaste, and start the patient on a small dose of metoprolol twice a day and increase as tolerated. 6. Thrombocytopenia:? Etiology. There is no bleeding complications with this at present. Will closely follow 7. Moderate pulmonary hypertension: Continue current treatment. 8. Morbid obesity. 9. Hypokalemia: Replace potassium, which is being done. We will recheck potassium in 4 hours, to make sure it is reached normal levels. 10. Abnormal liver function tests: Avoid hepatotoxic drugs. Most likely this is secondary to the patient's hepatic congestion treated due to heart failure. Note the LFTs are improving. Later would recommend that the patient have a IV Lexiscan Cardiolite stress test to assess for underlying coronary artery disease. Medications reviewed management plan discussed with the attending physician on the case. Discussed with the patient patient's also. Note 45 minutes spent on the patient, with more than 50% of time spent in direct patient care. Note that the patient is a full code. His is his surrogate healthcare decision maker. Medical decision making is of high complexity. Will follow with you
[2018-08-14 04:43] LABS: ABSOLUTE BASOPHILS # (AUTO) 0.1 10^3/uL (0.0-0.2); ABSOLUTE EOSINOPHILS # (AUTO) 0.1 10^3/uL (0.0-0.6); ABSOLUTE LYMPHOCYTES (AUTO) 0.6 10^3/uL (0.5-4.7); ABSOLUTE MONOCYTES (AUTO) 0.7 10^3/uL (0.1-1.4); ABSOLUTE NEUT (AUTO) 8.5 10^3/uL (1.7-8.2); BASOPHILS % (AUTO) 0.8 % (0-2); HEMATOCRIT 49.2 % (37.9-51.0); HEMOGLOBIN 15.9 g/dL (13.5-17.0); LYMPHOCYTES % (AUTO) 6.5 % (13-45); MEAN CORPUSCULAR HGB CONC 32.4 g/dL (32.0-36.0); MEAN CORPUSCULAR VOLUME 86 fl (80-97); MONOCYTES % (AUTO) 7.2 % (3-13); RED BLOOD COUNT 5.71 10^6/uL (4.35-5.55); RED CELL DISTRIBUTION WIDTH 15.9 % (11.5-14.0); SEGMENTED NEUTROPHILS % (AUTO) 84.5 % (42-78); TOTAL CELLS COUNTED % (AUTO) 100 %
[2018-08-14 04:57] LABS: BLOOD UREA NITROGEN 40 mg/dL (7-20); CALCIUM 8.2 mg/dL (8.4-10.2); CHLORIDE 90 mmol/L (98-107); GLUCOSE 130 mg/dL (75-110); POTASSIUM 3.6 mmol/L (3.6-5.0); SODIUM 139.5 mmol/L (137-145)
[2018-08-14 05:06] LABS: ANION GAP 7 (5-19); PLATELET COUNT 68 10^3/uL (150-450)
[2018-08-14 05:07] LABS: CARBON DIOXIDE 43 mmol/L (22-30)
[2018-08-14] MEDS ORDERED: NITROGLYCERIN 2% OINTMENT 1 GM PACKET TP SCH (06:00)
[2018-08-14] MEDS: DOCUSATE SODIUM 100 MG CAPSULE PO SCH (10:06)
[2018-08-14] MEDS: FUROSEMIDE INJ/PF 20 MG/2 ML SDV IV SCH ×2 (10:09→17:47)
[2018-08-14] MEDS: POTASSIUM CHLORIDE 10 MEQ CAPSULE.ER PO SCH ×4 (10:10→21:25)
[2018-08-14] MEDS: VALSARTAN 40 MG TABLET PO SCH ×2 (10:12→21:25)
[2018-08-14] MEDS: METOPROLOL SUCCINATE 25 MG TAB.SR.24H PO SCH (10:12)
[2018-08-14] MEDS: DIGOXIN 0.25 MG TABLET PO SCH (10:13)
[2018-08-14] MEDS: PAROXETINE HCL 20 MG TABLET PO SCH (10:13)
[2018-08-14] MEDS: METFORMIN HCL 850 MG TABLET PO SCH (10:13)
[2018-08-14] MEDS: FAMOTIDINE 20 MG TABLET PO SCH ×2 (10:13→21:25)
--- NOTE | 2018-08-14 12:01 | PDOC PROGRESS REPORT ---
Subjective Progress Note for:: 08/14/18 Subjective:: Slowly improving, breathing getting better. Denies fever or chills, no chest pain or palpitations. Feels lower extremity swelling slowly getting better. Denies nausea or vomiting, no abdominal pain. Reason For Visit: PNEUMONIA,ACUTE CONGESTIVE HEART FAILURE,ANASARCA Physical Exam Vital Signs: Temp Pulse Resp BP Pulse Ox 97.4 F 95 16 101/68 97 08/14/18 03:10 08/14/18 07:00 08/14/18 03:10 08/14/18 03:10 08/14/18 03:10 Intake & Output 08/13/18 08/14/18 08/15/18 06:59 06:59 06:59 Intake Total 487 961 Output Total 3226 1850 Balance -4158 -889 Weight 139 kg 137 kg General appearance: PRESENT: no acute distress, morbidly obese - BMI > 40, well- developed Head exam: PRESENT: atraumatic, normocephalic Mouth exam: PRESENT: dry mucosa, neck supple, tongue midline Neck exam: ABSENT: carotid bruit, lymphadenopathy, tenderness Respiratory exam: PRESENT: rales - Bilateral bases, symmetrical, unlabored. ABSENT: rhonchi, stridor, wheezes Cardiovascular exam: PRESENT: irregular rhythm GI/Abdominal exam: PRESENT: normal bowel sounds, soft, other - Pendulous abdomen. ABSENT: guarding, tenderness Gentrourinary exam: PRESENT: indwelling catheter, patient refusing to have it out at this time. Extremities exam: PRESENT: +2 edema Musculoskeletal exam: PRESENT: Still feeling very weak Neurological exam: PRESENT: alert, awake, oriented to person, oriented to place, oriented to time, oriented to situation, CN II-XII grossly intact Psychiatric exam: PRESENT: appropriate affect, normal mood Skin exam: PRESENT: erythema - Mild. Both legs. Results Laboratory Results: 08/14/18 04:25 08/14/18 04:25 08/14/18 08/14/18 04:25 04:25 WBC 10.0 RBC 5.71 H Hgb 15.9 Hct 49.2 MCV 86 MCH 28.0 MCHC 32.4 RDW 15.9 H Plt Count 68 L Seg Neutrophils % 84.5 H Lymphocytes % 6.5 L Monocytes % 7.2 Eosinophils % 1.0 Basophils % 0.8 Absolute Neutrophils 8.5 H Absolute Lymphocytes 0.6 Absolute Monocytes 0.7 Absolute Eosinophils 0.1 Absolute Basophils 0.1 Sodium 139.5 Potassium 3.6 Chloride 90 L Carbon Dioxide 43 H* Anion Gap 7 BUN 40 H Creatinine 1.02 Est GFR ( Amer) > 60 Est GFR (Non-Af Amer) > 60 Glucose 130 H Calcium 8.2 L 08/08/18 15:50 Blood Blood Culture - Final NO GROWTH IN 5 DAYS 08/08/18 13:52 Blood Blood Culture - Final NO GROWTH IN 5 DAYS 08/08/18 08/08/18 08/08/18 13:52 13:52 15:50 Creatine Kinase 85 CK-MB (CK-2) 3.00 Troponin I 0.037 NT-Pro-B Natriuret Pep 12921 H 08/08/18 08/09/18 08/09/18 20:45 03:15 09:20 Creatine Kinase CK-MB (CK-2) Troponin I 0.036 0.045 0.031 NT-Pro-B Natriuret Pep 08/11/18 08/11/18 08/11/18 03:53 03:53 11:37 Creatine Kinase 30 L 29 L CK-MB (CK-2) 0.97 Troponin I 0.071 NT-Pro-B Natriuret Pep 08/11/18 08/11/18 08/11/18 11:37 19:05 19:05 Creatine Kinase 32 L CK-MB (CK-2) 0.97 0.93 Troponin I 0.067 0.080 NT-Pro-B Natriuret Pep Impressions: Abdomen/Pelvis CT 08/08/18 15:27 IMPRESSION: Large bilateral pleural effusions. Upper abdominal ascites. Marked anasarca. Minimal contrast seen in the portal vein, SMV, splenic vein. Possibly related to timing and right heart failure. Renal Ultrasound 08/10/18 00:00 IMPRESSION: 1. Examination is very limited due to the patient's body habitus. The left kidney was not visualized. 2. No evidence of hydronephrosis on the right. 3. Bailey catheter present within the urinary bladder. 4. Incidentally mild to moderate right pleural effusion. Chest X-Ray 08/11/18 00:00 IMPRESSION: Borderline heart size without pulmonary edema. There is opacification the left base that could represent loculated pleural effusion or pneumonia. Guidance Fluoroscopy 08/12/18 00:00 IMPRESSION: SUCCESSFUL PLACEMENT OF A 5 FR DUAL LUMEN 45 CM PICC IN THE LEFT BASILIC VEIN. Interventional Vascular Procedure 08/12/18 00:00 IMPRESSION: SUCCESSFUL PLACEMENT OF A 5 FR DUAL LUMEN 45 CM PICC IN THE LEFT BASILIC VEIN. PICC Line Insertion 08/12/18 00:00 IMPRESSION: SUCCESSFUL PLACEMENT OF A 5 FR DUAL LUMEN 45 CM PICC IN THE LEFT BASILIC VEIN. Assessment & Plan - Diagnosis (1) Congestive heart failure Qualifiers: Heart failure type: right-sided Heart failure chronicity: acute Qualified Code(s): I50.811 - Acute right heart failure Is this a current diagnosis for this admission?: Yes (2) Liver failure without hepatic coma Qualifiers: Liver failure chronicity: acute Qualified Code(s): K72.00 - Acute and subacute hepatic failure without coma Is this a current diagnosis for this admission?: Yes (3) Acute renal failure Qualifiers: Acute renal failure type: unspecified Qualified Code(s): N17.9 - Acute kidney failure, unspecified Is this a current diagnosis for this admission?: Yes (4) Acute respiratory failure with hypoxia Is this a current diagnosis for this admission?: Yes (5) Thrombocytopenia Is this a current diagnosis for this admission?: Yes (6) Morbid obesity with BMI of 40.0-44.9, adult Is this a current diagnosis for this admission?: Yes - Plan Summary Plan Summary: Patient with biventricular heart failure. He is diuresing very well. His output was negative yesterday at 10 L and today also negative at about 900 mL. We will continue management. Continue to monitor strict I and Os. He is on Arixtra for thrombocytopenia, and his platelet is down today. It was held yesterday because of some hematuria apparently from Bailey trauma. Will continue continue Arixtra today and monitor patient for hematuria follow-up p latelets. For SHELLEY, creatinine is stable to improving. We will continue to follow. Will continue management otherwise. Follow-up CBC, Chem-7, magnesium levels in a.m.
[2018-08-14] MEDS ORDERED: DIGOXIN INJ 0.5 MG/2 ML AMPULE IV ONE (12:20)
[2018-08-14] MEDS: INSULIN LISPRO 100 UNIT/ML 3 ML VIAL SUBCUT PRN ×3 (12:39→21:25)
[2018-08-14] MEDS: FONDAPARINUX SODIUM INJ 2.5 MG/0.5 ML DISP.SYRIN SUBCUT SCH (12:46)
--- NOTE | 2018-08-14 20:20 | Progress Note ---
Provider Note Provider Note: CARDIOLOGY PROGRESS NOTES by Dr. Ingrid Blanc on 08/14/2018. SUBJECTIVE: The patient is having diarrhea, without abdominal pain. His C. difficile is negative. There is no shortness of breath. The patient has no PND or orthopnea. The patient continues to be in atrial fibrillation. There is no ventricular arrhythmias seen. There is no anginal symptoms. He has only trace leg edema. There is no TIA CVA symptoms. There is no particular ecchymosis on the skin. PHYSICAL EXAMINATION: The patient is morbidly obese. He is in no acute distress. He is well-groomed. Selected Entries 08/14/18 11:51 Temperature 97.5 F Temperature Oral Source Pulse Rate 62 Respiratory 20 Rate Blood Pressure 99/62 L Blood Pressure 74 Mean BP Location Right Arm BP Position Supine O2 Sat by Pulse 94 Oximetry Oxygen Flow 4.50 Rate Oxygen Delivery Nasal Cannula Method HEAD: Is atraumatic normocephalic. EYES: His pupils are equal round regular reactive to light accommodation there is no conjunctival pallor there is no scleral icterus. ENT: Is negative. NECK: Supple. There is mild JVD still present. Carotids are equal there is no bruit. There is no lymphadenopathy. There is no goiter. LUNGS: Shows absent breath sounds and dullness in the left base. Rest of the lungs are clear there is no rales of CHF today. There is no chest wall tenderness. S1-S2 is heard S1 is of variable intensity. There is no S3 gallop there is no S4 gallop. There is systolic murmur of mitral regurgitation and tricuspid regurgitation present. There is no murmur of aortic stenosis or aortic regurgitation. There is no rub. Abdomen: Is obese. Nontender. Bowel sounds are well heard. There is no hepatosplenomegaly. EXTREMITIES: Femorals are deep. Femorals are diminished. There is no femoral bruits. Leg pulses are diminished. There is mild pedal edema. There is no DVT or cellulitis. There is no calf tenderness. There is no cyanosis or clubbing. 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 PSYCHIATRIC: The patient judgment and insight are intact his affect is normal. 08/13/18 08/14/18 08/14/18 23:30 04:25 04:25 WBC 10.0 Hgb 15.9 Hct 49.2 MCV 86 Plt Count 68 L Sodium 139.5 Potassium 3.6 Chloride 90 L Carbon Dioxide 43 H* Anion Gap 7 BUN 40 H Creatinine 1.02 Est GFR (Non-Af Amer) > 60 Glucose 130 H Calcium 8.2 L C. difficile Tox (PCR) NEGATIVE Patient's 24-hour intake is 961 mL. Output is 1850 mL. IMPRESSION/RECOMMENDATION: 1. Congestive heart failure: Biventricular heart failure. Most likely the patient is acute on chronic left ventricular and right ventricular systolic heart failure. This is improving 2. Possible pneumonia. This I very much doubt. 3. Acute renal failure, renal function improving with the patient's current treatment regimen and management plan. At present renal function is within normal limits. 4. Diabetes mellitus, long-standing with probably underlying diabetic nephropathy. Insulin-dependent 5. Atrial fibrillation: Although the patient's Arthur Vasc score requires that the patient be on chronic anticoagulation, with the patient's abnormal liver function tests, and the patient's platelets being low will hold off on oral chronic anticoagulation therapy. This has been discussed with the patient and patient's . Also will stop the patient's Nitropaste, and start the patient on a small dose of metoprolol twice a day and increase as tolerated. 6. Thrombocytopenia:? Etiology. There is no bleeding complications with this at present. Will closely follow 7. Moderate pulmonary hypertension: Continue current treatment. 8. Morbid obesity. 9. Hypokalemia: Replace potassium, which is being done. We will recheck potassium in 4 hours, to make sure it is reached normal levels. 10. Abnormal liver function tests: Avoid hepatotoxic drugs. Most likely this is secondary to the patient's hepatic congestion treated due to heart failure. Note the LFTs are improving. Later would recommend that the patient have a IV Lexiscan Cardiolite stress test to assess for underlying coronary artery disease. Medications reviewed management plan discussed with the attending physician on the case. Discussed with the patient patient's also. Note 45 minutes spent on the patient, with more than 50% of time spent in direct patient care. Note that the patient is a full code. His is his surrogate healthcare decision maker. Medical decision making is of high complexity. Will follow with you
[2018-08-15] MEDS ORDERED: NORMAL SALINE 10 ML SDV (AFTER EACH USE) IV PRN (03:30)
[2018-08-15 05:37] LABS: HEMATOCRIT 49.2 % (37.9-51.0); MEAN CORPUSCULAR HGB CONC 32.5 g/dL (32.0-36.0); MEAN CORPUSCULAR VOLUME 86 fl (80-97); RED BLOOD COUNT 5.71 10^6/uL (4.35-5.55); RED CELL DISTRIBUTION WIDTH 16.1 % (11.5-14.0); WHITE BLOOD COUNT 10.4 10^3/uL (4.0-10.5)
[2018-08-15 05:59] LABS: BLOOD UREA NITROGEN 39 mg/dL (7-20); CHLORIDE 90 mmol/L (98-107); GLUCOSE 119 mg/dL (75-110); POTASSIUM 3.6 mmol/L (3.6-5.0); SODIUM 137.2 mmol/L (137-145)
[2018-08-15 06:05] LABS: ANION GAP 7 (5-19)
[2018-08-15 06:11] LABS: CARBON DIOXIDE 40 mmol/L (22-30)
[2018-08-15 06:22] LABS: ABSOLUTE LYMPHOCYTES# (MANUAL) 0.8 10^3/uL (0.5-4.7); ABSOLUTE MONOCYTES # (MANUAL) 0.2 10^3/uL (0.1-1.4); ABSOLUTE NEUTROPHILS# (MANUAL) 9.4 10^3/uL (1.7-8.2); BASOPHILS % (MANUAL) 0 % (0-2); EOSINOPHILS % (MANUAL) 0 % (0-6); LYMPHOCYTES % (MANUAL) 6 % (13-45); MONOCYTES % (MANUAL) 2 % (3-13); SEGMENTED NEUTROPHILS % (MAN) 90 % (42-78); TOTAL CELLS COUNTED 100
[2018-08-15 06:26] LABS: POIKILOCYTOSIS 1+; TOXIC GRANULATION SLIGHT; TOXIC VACUOLATION PRESENT
[2018-08-15 06:27] LABS: PLATELET COMMENT DECREASED; TARGET CELLS 1+; TEAR DROP CELLS 1+
[2018-08-15 06:57] LABS: PLATELET COUNT 69 10^3/uL (150-450)
[2018-08-15] MEDS ORDERED: NORMAL SALINE 10 ML SDV (SCHEDULED) IV SCH (10:00)
--- NOTE | 2018-08-15 10:26 | PDOC PROGRESS REPORT ---
Subjective Progress Note for:: 08/15/18 Subjective:: Complains of diarrhea, states this is chronic and Pepto-Bismol helps. Stool for C. difficile was checked and it was negative. Otherwise, reports he is slowly improving, breathing getting better. Denies fever or chills, no chest pain or palpitations. Feels lower extremity swelling improving. Denies nausea or vomiting, no abdominal pain. Reason For Visit: PNEUMONIA,ACUTE CONGESTIVE HEART FAILURE,ANASARCA Physical Exam Vital Signs: Temp Pulse Resp BP Pulse Ox 97.6 F 83 20 117/70 95 08/15/18 07:32 08/15/18 07:32 08/15/18 07:32 08/15/18 07:32 08/15/18 07:32 Intake & Output 08/14/18 08/15/18 08/16/18 06:59 06:59 06:59 Intake Total 961 1205 Output Total 1850 725 Balance -889 480 Weight 137 kg 135 kg General appearance: PRESENT: no acute distress, morbidly obese - BMI > 40 Head exam: PRESENT: atraumatic, normocephalic Mouth exam: PRESENT: dry mucosa, neck supple, tongue midline Neck exam: ABSENT: carotid bruit, lymphadenopathy, tenderness Respiratory exam: PRESENT: clear bilaterally, symmetrical, unlabored. ABSENT: rhonchi, stridor, wheezes Cardiovascular exam: PRESENT: irregular rhythm GI/Abdominal exam: PRESENT: normal bowel sounds, soft. ABSENT: guarding, tenderness Gentrourinary exam: PRESENT: indwelling catheter, patient refusing to have it out at this time--could not urinate due to significant edema. Edema improved, although still with some testicular and penile swelling Extremities exam: PRESENT: 1+ edema Neurological exam: PRESENT: alert, awake, oriented to person, oriented to place, oriented to time, oriented to situation, CN II-XII grossly intact Psychiatric exam: PRESENT: appropriate affect, normal mood Skin exam: PRESENT: erythema - Mild. Both legs. Results Laboratory Results: 08/15/18 04:55 08/15/18 04:55 08/15/18 08/15/18 04:55 04:55 WBC 10.4 RBC 5.71 H Hgb 16.0 Hct 49.2 MCV 86 MCH 28.0 MCHC 32.5 RDW 16.1 H Plt Count 69 L Seg Neutrophils % Not Reportable Lymphocytes % Not Reportable Monocytes % Not Reportable Eosinophils % Not Reportable Basophils % Not Reportable Absolute Neutrophils Not Reportable Absolute Lymphocytes Not Reportable Absolute Monocytes Not Reportable Absolute Eosinophils Not Reportable Absolute Basophils Not Reportable Sodium 137.2 Potassium 3.6 Chloride 90 L Carbon Dioxide 40 H* Anion Gap 7 BUN 39 H Creatinine 1.01 Est GFR ( Amer) > 60 Est GFR (Non-Af Amer) > 60 Glucose 119 H Calcium 8.0 L Magnesium 1.8 08/08/18 08/08/18 08/08/18 13:52 13:52 15:50 Creatine Kinase 85 CK-MB (CK-2) 3.00 Troponin I 0.037 NT-Pro-B Natriuret Pep 21380 H 08/08/18 08/09/18 08/09/18 20:45 03:15 09:20 Creatine Kinase CK-MB (CK-2) Troponin I 0.036 0.045 0.031 NT-Pro-B Natriuret Pep 08/11/18 08/11/18 08/11/18 03:53 03:53 11:37 Creatine Kinase 30 L 29 L CK-MB (CK-2) 0.97 Troponin I 0.071 NT-Pro-B Natriuret Pep 08/11/18 08/11/18 08/11/18 11:37 19:05 19:05 Creatine Kinase 32 L CK-MB (CK-2) 0.97 0.93 Troponin I 0.067 0.080 NT-Pro-B Natriuret Pep Impressions: Abdomen/Pelvis CT 08/08/18 15:27 IMPRESSION: Large bilateral pleural effusions. Upper abdominal ascites. Marked anasarca. Minimal contrast seen in the portal vein, SMV, splenic vein. Possibly related to timing and right heart failure. Renal Ultrasound 08/10/18 00:00 IMPRESSION: 1. Examination is very limited due to the patient's body habitus. The left kidney was not visualized. 2. No evidence of hydronephrosis on the right. 3. Bailey catheter present within the urinary bladder. 4. Incidentally mild to moderate right pleural effusion. Chest X-Ray 08/11/18 00:00 IMPRESSION: Borderline heart size without pulmonary edema. There is opacification the left base that could represent loculated pleural effusion or pneumonia. Guidance Fluoroscopy 08/12/18 00:00 IMPRESSION: SUCCESSFUL PLACEMENT OF A 5 FR DUAL LUMEN 45 CM PICC IN THE LEFT BASILIC VEIN. Interventional Vascular Procedure 08/12/18 00:00 IMPRESSION: SUCCESSFUL PLACEMENT OF A 5 FR DUAL LUMEN 45 CM PICC IN THE LEFT BASILIC VEIN. PICC Line Insertion 08/12/18 00:00 IMPRESSION: SUCCESSFUL PLACEMENT OF A 5 FR DUAL LUMEN 45 CM PICC IN THE LEFT BASILIC VEIN. Assessment & Plan - Diagnosis (1) Congestive heart failure Qualifiers: Heart failure type: right-sided Heart failure chronicity: acute Qualified Code(s): I50.811 - Acute right heart failure Is this a current diagnosis for this admission?: Yes (2) Liver failure without hepatic coma Qualifiers: Liver failure chronicity: acute Qualified Code(s): K72.00 - Acute and subacute hepatic failure without coma Is this a current diagnosis for this admission?: Yes (3) Acute renal failure Qualifiers: Acute renal failure type: unspecified Qualified Code(s): N17.9 - Acute kidney failure, unspecified Is this a current diagnosis for this admission?: Yes (4) Acute respiratory failure with hypoxia Is this a current diagnosis for this admission?: Yes (5) Thrombocytopenia Is this a current diagnosis for this admission?: Yes (6) Morbid obesity with BMI of 40.0-44.9, adult Is this a current diagnosis for this admission?: Yes (7) Diarrhea Is this a current diagnosis for this admission?: Yes - Plan Summary Plan Summary: Patient with biventricular heart failure. He continues to diuresis okay, although neck output now is about 900 mL (which was 10L 2 days ago and 2.7 L yesterday). We will continue management. Continue to monitor strict I and Os. Will continue continue Arixtra today and monitor patient for hematuria and continue follow-up platelets. For SHELLEY, creatinine has improved. We will continue to follow. Will start Pepto-Bismol for his chronic diarrhea. D/C Colace. Stool for C. difficile was negative. Will continue management otherwise. Follow-up Chem-7 in a.m.
[2018-08-15] MEDS: DIGOXIN 0.25 MG TABLET PO SCH (10:56)
[2018-08-15] MEDS: METOPROLOL SUCCINATE 25 MG TAB.SR.24H PO SCH (10:56)
[2018-08-15] MEDS: FONDAPARINUX SODIUM INJ 2.5 MG/0.5 ML DISP.SYRIN SUBCUT SCH (10:56)
[2018-08-15] MEDS: PAROXETINE HCL 20 MG TABLET PO SCH (10:56)
[2018-08-15] MEDS: METFORMIN HCL 850 MG TABLET PO SCH (10:56)
[2018-08-15] MEDS: VALSARTAN 40 MG TABLET PO SCH (10:56)
[2018-08-15] MEDS: FAMOTIDINE 20 MG TABLET PO SCH ×2 (10:56→21:29)
[2018-08-15] MEDS: POTASSIUM CHLORIDE 10 MEQ CAPSULE.ER PO SCH ×4 (10:56→21:29)
[2018-08-15] MEDS: FUROSEMIDE INJ/PF 20 MG/2 ML SDV IV SCH ×2 (10:57→17:13)
[2018-08-15] MEDS: DOCUSATE SODIUM 100 MG CAPSULE PO SCH (11:13)
[2018-08-15] MEDS: BISMUTH SUBSALICYLATE 262 MG TAB.CHEW PO PRN (11:35)
[2018-08-15] MEDS: INSULIN LISPRO 100 UNIT/ML 3 ML VIAL SUBCUT PRN ×3 (13:32→22:44)
[2018-08-15] MEDS: PROMETHAZINE HCL 25 MG TABLET PO PRN (17:50)
--- NOTE | 2018-08-15 19:45 | Progress Note ---
Provider Note Provider Note: CARDIOLOGY PROGRESS NOTES by Dr. Ingrid Blanc on 08/15/2018. SUBJECTIVE: The patient continues to have diarrhea. He is awaiting antidiarrheal medication to be given by pharmacy. He denies any chest pain or discomfort. He continues to be in atrial fibrillation with ventricular response in the 100s. There is no shortness of breath, or wheezing.. There is no cough or sputum production. There is no PND orthopnea. His leg edema is much improved and there is only trace edema now. There is no TIA CVA symptoms. There is no bleeding. Complications. There is no petechia or ecchymosis. PHYSICAL EXAMINATION: The patient is morbidly obese. He is in no acute distress. He is well-groomed. Selected Entries 08/14/18 08:34 Temperature 97.6 F Temperature Oral Source Pulse Rate 115 H Respiratory 22 H Rate Blood Pressure 102/63 Blood Pressure 76 Mean BP Location Right Arm BP Position Sitting O2 Sat by Pulse 100 Oximetry Oxygen Flow 4.00 Rate Oxygen Delivery Nasal Cannula Method HEAD: Is atraumatic normocephalic. EYES: His pupils are equal round regular reactive to light accommodation there is no conjunctival pallor there is no scleral icterus. ENT: Is negative. NECK: Supple. There is mild JVD still present. Carotids are equal there is no bruit. There is no lymphadenopathy. There is no goiter. LUNGS: Shows absent breath sounds and dullness in the left base. Rest of the lungs are clear there is no rales of CHF today. There is no chest wall tenderness. S1-S2 is heard S1 is of variable intensity. There is no S3 gallop there is no S4 gallop. There is systolic murmur of mitral regurgitation and tricuspid regurgitation present. There is no murmur of aortic stenosis or aortic regurgitation. There is no rub. Abdomen: Is obese. Nontender. Bowel sounds are well heard. There is no hepatosplenomegaly. EXTREMITIES: Femorals are deep. Femorals are diminished. There is no femoral bruits. Leg pulses are diminished. There is mild pedal edema. There is no DVT or cellulitis. There is no calf tenderness. There is no cyanosis or clubbing. 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 PSYCHIATRIC: The patient judgment and insight are intact his affect is normal. 12/08/14/18 08/15/18 04:20 04:25 04:55 WBC 10.4 RBC 5.71 H Hgb 16.0 Hct 49.2 MCV 86 MCH 28.0 MCHC 32.5 RDW 16.1 H Plt Count 69 L Total Counted 100 Seg Neuts % (Manual) 90 H Sodium 139.5 Potassium 3.6 Chloride 90 L Carbon Dioxide 43 H* Anion Gap BUN 40 H Creatinine 1.02 Est GFR (Non-Af Amer) > 60 Glucose 130 H POC Glucose Calcium 8.2 L Magnesium Total Bilirubin 5.8 H Direct Bilirubin 3.3 H Neonat Total Bilirubin Not Reportable Neonat Direct Bilirubin Not Reportable Neonat Indirect Bili Not Reportable AST 148 H ALT 240 H Alkaline Phosphatase 130 H Total Protein 5.4 L Albumin 2.9 L 08/15/18 08/15/18 04:55 06:15 WBC RBC Hgb Hct MCV MCH MCHC RDW Plt Count Total Counted Seg Neuts % (Manual) Sodium 137.2 Potassium 3.6 Chloride 90 L Carbon Dioxide 40 H* Anion Gap 7 BUN 39 H Creatinine 1.01 Est GFR (Non-Af Amer) > 60 Glucose 119 H POC Glucose 119 H Calcium 8.0 L Magnesium 1.8 Total Bilirubin Direct Bilirubin Neonat Total Bilirubin Neonat Direct Bilirubin Neonat Indirect Bili AST ALT Alkaline Phosphatase Total Protein Albumin The patient's 24-hour intake is 1205 mL, output is 725 mL per IMPRESSION/RECOMMENDATION: 1. Congestive heart failure: Biventricular heart failure. Most likely the patient is acute on chronic left ventricular and right ventricular systolic heart failure. At present patient compensated. In view of the patient's decreasing urine output, if this continues even after the patient's diarrhea stops, then will increase the patient's diuretics. Will add spironolactone. 2. Possible pneumonia. This I very much doubt. 3. Acute renal failure, renal function improving with the patient's current treatment regimen and management plan. 4. Diabetes mellitus, long-standing with probably underlying diabetic nephropathy. Insulin-dependent 5. Atrial fibrillation: Although the patient's Arthur Vascor requires that the patient be on chronic anticoagulation, with the patient's abnormal liver function tests, and the patient's platelets being low will hold off on oral chronic anticoagulation therapy. This has been discussed with the patient and patient's . The only option is to start the patient on Coumadin. But the patient's reluctant and does not want to be on Coumadin, since this involves periodic blood tests, and dietary restriction. Continue the patient digoxin. We will recheck the patient's dig level in the morning. 6. Thrombocytopenia:? Etiology. There is no bleeding complications with this at present. Will closely follow 7. Moderate pulmonary hypertension: Continue current treatment. 8. Morbid obesity. 9. Hypokalemia: Resolved. 10. Abnormal liver function tests: Avoid hepatotoxic drugs. Most likely this is secondary to the patient's hepatic congestion treated due to heart failure. Note the LFTs are improving. We will recheck the patient's LFTs in the a.m. Later would recommend that the patient have a IV Lexiscan Cardiolite stress test to assess for underlying coronary artery disease. Medications reviewed management plan discussed with the attending physician on the case. Discussed with the patient patient's also. Note 45 minutes spent on the patient, with more than 50% of time spent in direct patient care. Note that the patient is a full code. His is his surrogate healthcare decision maker. Medical decision making is of high complexity. Will follow with you
[2018-08-15] MEDS ORDERED: METOPROLOL SUCCINATE 25 MG TAB.SR.24H PO SCH (22:00)
[2018-08-15] MEDS ORDERED: VALSARTAN 40 MG TABLET PO SCH (22:00)
[2018-08-16 07:15] LABS: ALBUMIN 2.5 g/dL (3.5-5.0); ALKALINE PHOSPHATASE 141 U/L (38-126); ASPARTATE AMINO TRANSFERASE 86 U/L (17-59); BILIRUBIN,DIRECT 5.1 mg/dL (0.0-0.4); BILIRUBIN,TOTAL 7.1 mg/dL (0.2-1.3); CHLORIDE 88 mmol/L (98-107); POTASSIUM 3.8 mmol/L (3.6-5.0); SODIUM 136.8 mmol/L (137-145)
[2018-08-16 07:56] LABS: ALANINE AMINOTRANSFERASE 108 U/L (21-72); ANION GAP 11 (5-19); BLOOD UREA NITROGEN 43 mg/dL (7-20); CALCIUM 7.9 mg/dL (8.4-10.2); CARBON DIOXIDE 38 mmol/L (22-30); DIGOXIN 1.43 ng/mL (0.8-2.0); GLUCOSE 184 mg/dL (75-110)
[2018-08-16] MEDS: POTASSIUM CHLORIDE 10 MEQ CAPSULE.ER PO SCH ×4 (10:04→21:40)
[2018-08-16] MEDS: METOPROLOL SUCCINATE 25 MG TAB.SR.24H PO SCH ×2 (10:04→21:41)
[2018-08-16] MEDS: VALSARTAN 40 MG TABLET PO SCH ×2 (10:04→21:41)
[2018-08-16] MEDS: SPIRONOLACTONE 25 MG TABLET PO SCH ×2 (10:04→21:40)
[2018-08-16] MEDS: DIGOXIN 0.25 MG TABLET PO SCH (10:05)
[2018-08-16] MEDS: INSULIN LISPRO 100 UNIT/ML 3 ML VIAL SUBCUT PRN ×3 (10:05→21:45)
[2018-08-16] MEDS: FUROSEMIDE INJ/PF 20 MG/2 ML SDV IV SCH ×2 (10:05→17:27)
[2018-08-16] MEDS: FAMOTIDINE 20 MG TABLET PO SCH ×2 (10:05→21:41)
[2018-08-16] MEDS: METFORMIN HCL 850 MG TABLET PO SCH (10:06)
[2018-08-16] MEDS: PAROXETINE HCL 20 MG TABLET PO SCH (10:06)
[2018-08-16] MEDS: FONDAPARINUX SODIUM INJ 2.5 MG/0.5 ML DISP.SYRIN SUBCUT SCH (10:06)
--- NOTE | 2018-08-16 15:00 | RADIOLOGY REPORT (SQ) ---
EXAM DESCRIPTION: CT ABD/PELVIS WITH IV ORAL COMPLETED DATE/TIME: 08/16/2018 2:35 pm REASON FOR STUDY: Abnormal LFT's, CHF COMPARISON: 08/08/2018 TECHNIQUE: CT scan of the abdomen and pelvis performed with intravenous and oral contrast using krystal ruth scanning technique with dynamic intravenous contrast injection. Images reviewed with lung, soft t issue, and bone windows. Reconstructed coronal and sagittal MPR images reviewed. Delayed images for e valuation of the urinary system also acquired. All images stored on PACS. All CT scanners at this facility use dose modulation, iterative reconstruction, and/or weight based d osing when appropriate to reduce radiation dose to as low as reasonably achievable (ALARA). [facility]: Dose Right [facility]: CareDose [facility]: Dose Right [facility]: Teradose 4D [facility]: VEEDIMS CONTRAST TYPE AND DOSE: contrast/concentration: Isovue 350.00 mg/ml; Total Contrast Delivered: 100.0 ml; Total Saline Delivered: 72.0 ml RENAL FUNCTION: Creatinine 1.25 RADIATION DOSE: CT Rad equipment meets quality standard of care and radiation dose reduction techniq ues were employed. CTDIvol: 20.9 - 21.1 mGy. DLP: 2464 mGy-cm.. LIMITATIONS: None. FINDINGS: Compared to study from 08/08/2018: Chronic findings: Bilateral moderate pleural effusions, likely improved. Bibasilar adjacent subsegmental atelectasis i n the lung bases. Cardiomegaly. Dilated hepatic veins with refluxing contrast consistent with cardiac dysfunction. Diffusely fatty liver without focal lesion. Change since prior: Ascites is no longer identified. Bailey catheter decompresses the bladder. IMPRESSION: 1. Persistent but slightly improved pleural effusions. 2. Resolved ascites. 3. Fatty liver. TECHNICAL DOCUMENTATION: JOB ID: [id number] Quality ID # [id number]: Final reports with documentation of one or more dose reduction techniques (e.g., Au tomated exposure control, adjustment of the mA and/or kV according to patient size, use of iterative reconstruction technique) 2010 [employer]- All Rights Reserved Reading location - IP/workstation name: [email or web address]
[2018-08-16] MEDS: BISMUTH SUBSALICYLATE 262 MG TAB.CHEW PO PRN (18:45)
[2018-08-16] MEDS ORDERED: DOBUTAMINE HCL/D5W 500 MG/250 ML RTUINJ IV PRN (18:46)
[2018-08-16] MEDS: PROMETHAZINE HCL 25 MG TABLET PO PRN (19:47)
--- NOTE | 2018-08-16 20:17 | Progress Note ---
Provider Note Provider Note: CARDIOLOGY PROGRESS NOTES by Dr. Ingrid Blanc on 08/16/2018. SUBJECTIVE: The patient continues to have diarrhea. He states he has a history of chronic diarrhea. Would recommend GI to evaluate this, and also the abnormal liver function tests. He has now converted to sinus rhythm with first-degree AV block. There is no TIA CVA symptoms. The patient denies any shortness of breath or chest pain or discomfort. There is no PND orthopnea. He has 1+ pedal edema. There is no ventricular arrhythmia seen on the monitor. There is no TIA CVA symptoms. There is no dizziness, syncope or near syncope. His liver function tests are still abnormal, but are trending down. Hence a CT of the abdomen was obtained. PHYSICAL EXAMINATION: The patient is morbidly obese. In no acute distress. He is well-groomed. Selected Entries 08/16/18 11:40 Temperature 97.3 F Temperature Oral Source Pulse Rate 79 Respiratory 16 Rate Blood Pressure 122/60 Blood Pressure 80 Mean BP Location Right Arm BP Position Supine O2 Sat by Pulse 96 Oximetry Oxygen Flow 4.00 Rate Oxygen Delivery Nasal Cannula Method HEAD: Is atraumatic normocephalic. EYES: His pupils are equal round regular reactive to light accommodation there is no conjunctival pallor there is no scleral icterus. ENT: Is negative. NECK: Supple. There is mild JVD still present. Carotids are equal there is no bruit. There is no lymphadenopathy. There is no goiter. LUNGS: Shows absent breath sounds and dullness in both the bases. Rest of the lungs are clear there is no rales of CHF today. There is no chest wall tenderness. S1-S2 is heard S1 is of normal intensity. There is no S3 gallop there is no S4 gallop. There is systolic murmur of mitral regurgitation and tricuspid regurgitation present. There is no murmur of aortic stenosis or aortic regurgitation. There is no rub. Abdomen: Is obese. Nontender. Bowel sounds are well heard. There is no hepatosplenomegaly. EXTREMITIES: Femorals are deep. Femorals are diminished. There is no femoral bruits. Leg pulses are diminished. There is 1+ pedal edema. There is no DVT or cellulitis. There is no calf tenderness. There is no cyanosis or clubbing. 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 PSYCHIATRIC: The patient judgment and insight are intact his affect is normal. 08/16/18 06:02 Sodium 136.8 L Potassium 3.8 Chloride 88 L Carbon Dioxide 38 H Anion Gap 11 BUN 43 H Creatinine 1.25 Est GFR (Non-Af Amer) 57 L Glucose 184 H Calcium 7.9 L Total Bilirubin 7.1 H Direct Bilirubin 5.1 H Neonat Total Bilirubin Not Reportable Neonat Direct Bilirubin Not Reportable AST 86 H ALT 108 H Alkaline Phosphatase 141 H Total Protein 5.0 L Albumin 2.5 L EKG: Sinus rhythm with first-degree AV block. Left bundle branch block pattern. The patient's abdominal CT angiogram: Shows fatty liver. Dilated hepatic veins with reflux consistent with cardiac dysfunction. Moderate bilateral pleural effusions. The patient's 24-hour intake is 1253 mL, output is 1500 mL per IMPRESSION/RECOMMENDATION: 1. Congestive heart failure: Biventricular heart failure. Most likely the patient is acute on chronic left ventricular and right ventricular systolic heart failure. At present patient compensated. In view of the patient's decreasing urine output, if this continues even after the patient's diarrhea stops, then will increase the patient's diuretics. Will add spironolactone. 2. Possible pneumonia. This I very much doubt. 3. Acute renal failure, renal function improving with the patient's current treatment regimen and management plan. 4. Diabetes mellitus, long-standing with probably underlying diabetic nephropathy. Insulin-dependent 5. Atrial fibrillation: Although the patient's Arthur Vascor requires that the patient be on chronic anticoagulation, with the patient's abnormal liver function tests, and the patient's platelets being low will hold off on oral chronic anticoagulation therapy. This has been discussed with the patient and patient's . The only option is to start the patient on Coumadin. But the patient's reluctant and does not want to be on Coumadin, since this involves periodic blood tests, and dietary restriction. Continue the patient digoxin. We will recheck the patient's dig level in the morning. 6. Thrombocytopenia:? Etiology. There is no bleeding complications with this at present. Will closely follow 7. Moderate pulmonary hypertension: Note that the patient still has bilateral moderate pleural effusions, and dilated hepatic vein with reflux. Hence will start the patient on dobutamine to increase the patient's diuresis. Also will increase the patient's Lasix to 40 mg IV every 8 hours. 8. Morbid obesity. 9. Hypokalemia: Resolved. 10. Abnormal liver function tests: Avoid hepatotoxic drugs. Most likely this is secondary to the patient's hepatic congestion treated due to heart failure. Note the LFTs are improving. We will recheck the patient's LFTs in the a.m 11. Moderate bilateral pleural effusions.. Later would recommend that the patient have a IV Lexiscan Cardiolite stress test to assess for underlying coronary artery disease. Medications reviewed. Medications adjusted. Management plan discussed with the attending physician on the case. Discussed with the patient patient's also. Note 45 minutes spent on the patient, with more than 50% of time spent in direct patient care. Note that the patient is a full code. His is his surrogate healthcare decision maker. Medical decision making is of high complexity. Will follow with you
[2018-08-16] MEDS ORDERED: FUROSEMIDE INJ/PF 20 MG/2 ML SDV IV SCH (22:00)
--- NOTE | 2018-08-16 23:42 | EKG REPORT ---
SEVERITY:- ABNORMAL ECG - SINUS RHYTHM FIRST DEGREE AV BLOCK IVCD, CONSIDER ATYPICAL LBBB : Confirmed by: Lyndsey Guerra 16-Aug-2018 23:41:29
[2018-08-17] MEDS ORDERED: DOPAMINE HCL/DEXTROSE 5%-WATER 800 MG/250 ML RTUINJ IV ONE (04:08)
[2018-08-17] MEDS ORDERED: PHENYLEPHRINE HCL INJ/PF 10 MG/1 ML SDV ONE (05:04)
[2018-08-17 05:13] LABS: ARTERIAL BLOOD BASE EXCESS 9.9 mmol/L; ARTERIAL BLOOD H2CO3 1.39 mmol/L (1.05-1.35); ARTERIAL BLOOD HCO3 34.9 mmol/L (20-24); ARTERIAL BLOOD O2 SATURATION 88.6 % (94-98); ARTERIAL BLOOD PCO2 46.2 mmHg (35-45); ARTERIAL BLOOD PO2 50.8 mmHg (80-100); ARTERIAL BLOOD TOTAL CO2 36.3 mmol/L (23-27)
[2018-08-17 05:14] LABS: ARTERIAL BLOOD FIO2 40%
[2018-08-17] MEDS: DEXTROSE 5%-WATER 250 ML with PHENYLEPHRINE HCL 40 MG IV PRN ×6 (05:21→23:14)
[2018-08-17 05:38] LABS: ALANINE AMINOTRANSFERASE 111 U/L (21-72); ALKALINE PHOSPHATASE 181 U/L (38-126); ANION GAP 13 (5-19); ASPARTATE AMINO TRANSFERASE 198 U/L (17-59); BILIRUBIN,DIRECT 6.2 mg/dL (0.0-0.4); BILIRUBIN,TOTAL 8.5 mg/dL (0.2-1.3); BLOOD UREA NITROGEN 47 mg/dL (7-20); CALCIUM 8.3 mg/dL (8.4-10.2); CARBON DIOXIDE 35 mmol/L (22-30); CHLORIDE 88 mmol/L (98-107); GLUCOSE 230 mg/dL (75-110); POTASSIUM 4.3 mmol/L (3.6-5.0); SODIUM 135.8 mmol/L (137-145); TOTAL PROTEIN 5.9 g/dL (6.3-8.2)
--- NOTE | 2018-08-17 05:49 | Progress Note ---
Provider Note Provider Note: Critical care note: Time of critical care onset 4:58 AM I was called by the patient's nurse due to his rather sudden onset of hypoxia. His oxygen saturation dropped to 86% and did respond with increase in his oxygen from 4 L to 5 L/min via mask. Additionally his heart rate had jumped to 160s- 180s after initiation of a dopamine drip for support of his blood pressure approximately 40 minutes prior to my being contacted by his nurse. Shortly after my conversation with his nurse directing the patient to be transferred to the ICU a rapid response was called and I was in attendance of the rapid response at 4:58 AM and remained in attendance with the patient through his transfer to the intensive care unit until 5:52 AM. I recommended contacting Dr. Blanc to see if the patient's pressor support could be changed to Yann- Synephrine and he was in agreement to do that. Additionally a plan to treat the patient's decreased oxygen saturation with BiPAP was devised but he actually improved significantly during the transition to the ICU and at the point where I discontinued [id number] care he was not in any significant respiratory distress and he was tolerating weaning of his supplemental oxygen very well. His blood pressure also had improved during the transition and he had a systolic blood pressure of 124 without pressor support, at the time that I discontinued [id number] care. Examination revealed decreased breath sounds in the lower half of both lung reynolds with dullness to percussion consistent with probable pleural effusions bilaterally. Upper portions of the lung reynolds did reveal fine rales bilaterally and auscultation of heart revealed an S4 with decreased heart tones noted overall. Extremities showed 2+ pitting edema of the bilateral lower extremities and there was also noted to be mild scrotal edema. End of critical care time 5:22 AM
[2018-08-17 07:10] LABS: ABSOLUTE LYMPHOCYTES (AUTO) 0.8 10^3/uL (0.5-4.7); ABSOLUTE MONOCYTES (AUTO) 1.4 10^3/uL (0.1-1.4); BASOPHILS % (AUTO) 0.3 % (0-2); EOSINOPHILS % (AUTO) 0.2 % (0-6); LYMPHOCYTES % (AUTO) 5.5 % (13-45); MEAN CORPUSCULAR HEMOGLOBIN 27.9 pg (27.0-33.4); MEAN CORPUSCULAR HGB CONC 32.4 g/dL (32.0-36.0); MEAN CORPUSCULAR VOLUME 86 fl (80-97); RED BLOOD COUNT 6.64 10^6/uL (4.35-5.55); RED CELL DISTRIBUTION WIDTH 16.8 % (11.5-14.0); TOTAL CELLS COUNTED % (AUTO) 100 %; WHITE BLOOD COUNT 15.3 10^3/uL (4.0-10.5)
[2018-08-17 07:16] LABS: INTERNATIONAL RATION (INR) 1.32
[2018-08-17 07:30] LABS: CREATINE KINASE MB 21.1 ng/mL (<4.55)
[2018-08-17 07:35] LABS: TROPONIN I 13.3 ng/mL
--- NOTE | 2018-08-17 07:54 | PDOC PROGRESS REPORT ---
Subjective Progress Note for:: 08/16/18 Subjective:: Diarrhea a little better, states this is chronic and Pepto-Bismol helps. Stool for C. difficile was checked and it was negative. Otherwise, reports he is slowly continuing to improve, breathing getting better. Denies fever or chills, no chest pain or palpitations. Feels lower extremity swelling improving. Denies nausea or vomiting, no abdominal pain. Reason For Visit: PNEUMONIA,ACUTE CONGESTIVE HEART FAILURE,ANASARCA Physical Exam Vital Signs: Temp Pulse Resp BP Pulse Ox 97.2 F 88 14 114/52 L 96 08/16/18 15:19 08/16/18 15:19 08/16/18 15:19 08/16/18 15:19 08/16/18 15:19 Intake & Output 08/15/18 08/16/18 08/17/18 06:59 06:59 06:59 Intake Total 1205 1253 Output Total 725 1500 Balance 480 -247 Weight 135 kg 136 kg General appearance: PRESENT: no acute distress, morbidly obese - BMI > 40 Head exam: PRESENT: atraumatic, normocephalic Mouth exam: PRESENT: dry mucosa, neck supple, tongue midline Neck exam: ABSENT: carotid bruit, lymphadenopathy, tenderness Respiratory exam: PRESENT: clear bilaterally, symmetrical, unlabored. ABSENT: rhonchi, stridor, wheezes Cardiovascular exam: PRESENT: irregular rhythm GI/Abdominal exam: PRESENT: normal bowel sounds, soft. ABSENT: guarding, tenderness Gentrourinary exam: PRESENT: indwelling catheter, patient refusing to have it out at this time--could not urinate due to significant edema. Edema improved, markedly improved testicular and penile swelling Extremities exam: PRESENT: 1+ edema Neurological exam: PRESENT: alert, awake, oriented to person, oriented to place, oriented to time, oriented to situation, CN II-XII grossly intact Results Laboratory Results: 08/15/18 04:55 08/16/18 06:02 08/16/18 06:02 Sodium 136.8 L Potassium 3.8 Chloride 88 L Carbon Dioxide 38 H Anion Gap 11 BUN 43 H Creatinine 1.25 Est GFR ( Amer) > 60 Est GFR (Non-Af Amer) 57 L Glucose 184 H Calcium 7.9 L Total Bilirubin 7.1 H AST 86 H ALT 108 H Alkaline Phosphatase 141 H Total Protein 5.0 L Albumin 2.5 L 08/08/18 08/08/18 08/08/18 13:52 13:52 15:50 Creatine Kinase 85 CK-MB (CK-2) 3.00 Troponin I 0.037 NT-Pro-B Natriuret Pep 62093 H 08/08/18 08/09/18 08/09/18 20:45 03:15 09:20 Creatine Kinase CK-MB (CK-2) Troponin I 0.036 0.045 0.031 NT-Pro-B Natriuret Pep 08/11/18 08/11/18 08/11/18 03:53 03:53 11:37 Creatine Kinase 30 L 29 L CK-MB (CK-2) 0.97 Troponin I 0.071 NT-Pro-B Natriuret Pep 08/11/18 08/11/18 08/11/18 11:37 19:05 19:05 Creatine Kinase 32 L CK-MB (CK-2) 0.97 0.93 Troponin I 0.067 0.080 NT-Pro-B Natriuret Pep Impressions: Renal Ultrasound 08/10/18 00:00 IMPRESSION: 1. Examination is very limited due to the patient's body habitus. The left kidney was not visualized. 2. No evidence of hydronephrosis on the right. 3. Bailey catheter present within the urinary bladder. 4. Incidentally mild to moderate right pleural effusion. Chest X-Ray 08/11/18 00:00 IMPRESSION: Borderline heart size without pulmonary edema. There is opacification the left base that could represent loculated pleural effusion or pneumonia. Guidance Fluoroscopy 08/12/18 00:00 IMPRESSION: SUCCESSFUL PLACEMENT OF A 5 FR DUAL LUMEN 45 CM PICC IN THE LEFT BASILIC VEIN. Interventional Vascular Procedure 08/12/18 00:00 IMPRESSION: SUCCESSFUL PLACEMENT OF A 5 FR DUAL LUMEN 45 CM PICC IN THE LEFT BASILIC VEIN. PICC Line Insertion 08/12/18 00:00 IMPRESSION: SUCCESSFUL PLACEMENT OF A 5 FR DUAL LUMEN 45 CM PICC IN THE LEFT BASILIC VEIN. Abdomen/Pelvis CT 08/16/18 00:00 IMPRESSION: 1. Persistent but slightly improved pleural effusions. 2. Resolved ascites. 3. Fatty liver. Assessment & Plan - Diagnosis (1) Congestive heart failure Qualifiers: Heart failure type: right-sided Heart failure chronicity: acute Qualified Code(s): I50.811 - Acute right heart failure Is this a current diagnosis for this admission?: Yes (2) Liver failure without hepatic coma Qualifiers: Liver failure chronicity: acute Qualified Code(s): K72.00 - Acute and subacute hepatic failure without coma Is this a current diagnosis for this admission?: Yes (3) Acute renal failure Qualifiers: Acute renal failure type: unspecified Qualified Code(s): N17.9 - Acute kidney failure, unspecified Is this a current diagnosis for this admission?: Yes (4) Acute respiratory failure with hypoxia Is this a current diagnosis for this admission?: Yes (5) Thrombocytopenia Is this a current diagnosis for this admission?: Yes (6) Morbid obesity with BMI of 40.0-44.9, adult Is this a current diagnosis for this admission?: Yes (7) Diarrhea Is this a current diagnosis for this admission?: Yes - Plan Summary Plan Summary: Patient with biventricular heart failure. He continues to diuresis okay, although net output now is about -247 mL (which was -10 L --> -2.7 L --> -889 mL). We will continue management. Continue to monitor strict I and Os. Platelet is stable. Will continue continue Arixtra today and monitor patient for hematuria and to follow platelets. For SHELLEY, creatinine has improved. We will continue to follow. For liver failure, LFTs had been improving but worsened today with total bili of 7.1 and direct 5.1. Suspect congestion. I spoke with the fire equipment inspector and he recommended abdominal/pelvic CT. This was done and it shows ascites markedly im proved and there is some improvement in pleural effusion. We will continue to diuresis and manage with fire equipment inspector. Will continue Pepto-Bismol for his chronic diarrhea. D/C'd Colace. Stool for C. difficile was negative. Will continue management otherwise. Follow-up CBC and Chem-22 in a.m.
--- NOTE | 2018-08-17 08:02 | RADIOLOGY REPORT (SQ) ---
EXAM DESCRIPTION: X-ray single view chest. CLINICAL HISTORY: 73 years Male, Resp distress, desats COMPARISON: 08/11/2018. TECHNIQUE: Single portable view of the chest performed on 08/17/2018 at 7:32 AM FINDINGS: The lungs are well expanded. There is mild volume loss in the left lung base which may be due to atelectasis. A small effusion is not excluded. There is no evidence of a pneumothorax. The cardiac silhouette is stable and is mildly enlarged. The mediastinal contours are normal. No acute osseous abnormality is identified. No focal soft tissue abnormalities are seen. Lines and tubes: The left upper extremity PICC line catheter tip overlies the region of the proximal superior vena cava. IMPRESSION: 1. Stable volume loss in the left lung base. 2. The tip of the left upper extremity PICC line catheter overlies the region of the superior vena cava. 3. Stable cardiac silhouette.
[2018-08-17 08:23] LABS: HEMATOCRIT 57.2 % (37.9-51.0)
[2018-08-17 08:24] LABS: PLATELET COUNT 92 10^3/uL (150-450)
[2018-08-17] MEDS: DIGOXIN 0.25 MG TABLET PO SCH (09:28)
[2018-08-17] MEDS: POTASSIUM CHLORIDE 10 MEQ CAPSULE.ER PO SCH ×4 (09:29→23:49)
[2018-08-17] MEDS: FONDAPARINUX SODIUM INJ 2.5 MG/0.5 ML DISP.SYRIN SUBCUT SCH (09:29)
[2018-08-17] MEDS: METFORMIN HCL 850 MG TABLET PO SCH (09:29)
[2018-08-17] MEDS: INSULIN LISPRO 100 UNIT/ML 3 ML VIAL SUBCUT PRN ×3 (09:54→16:14)
--- NOTE | 2018-08-17 10:28 | PDOC PROGRESS REPORT ---
Subjective Progress Note for:: 08/17/18 Subjective:: The patient was stable and doing well. Early this morning he exhibited acute onset of increased shortness of breath with tachycardia. He had an elevated troponin (13). The patient was also hypotensive. The patient was transferred to the intensive care unit by Dr. Anderson. He is now on Yann-Synephrine. The patient actually feels quite comfortable. He is breathing comfortably on a nonrebreather mask. He denies any chest pain or pressure. He remains in atrial fibrillation with borderline tachycardia. Oxygenation is stable on nonrebreather mask at 15 L. Reason For Visit: PNEUMONIA,ACUTE CONGESTIVE HEART FAILURE,ANASARCA Physical Exam Vital Signs: Temp Pulse Resp BP Pulse Ox 98.8 F 103 H 19 107/86 H 96 08/17/18 08:00 08/17/18 08:00 08/17/18 08:00 08/17/18 08:00 08/17/18 08:00 Intake & Output 08/16/18 08/17/18 08/18/18 06:59 06:59 06:59 Intake Total 1253 1134 Output Total 1500 995 70 Balance -247 139 -70 Weight 136 kg 135 kg General appearance: PRESENT: no acute distress, cooperative, morbidly obese, well-developed Head exam: PRESENT: normocephalic Eye exam: PRESENT: conjunctiva pale, scleral icterus Ear exam: PRESENT: normal external ear exam Mouth exam: PRESENT: moist Neck exam: ABSENT: carotid bruit, lymphadenopathy Respiratory exam: PRESENT: rales - Find rales on the right., symmetrical, tachypnea. ABSENT: accessory muscle use, rhonchi, stridor, wheezes GI/Abdominal exam: PRESENT: normal bowel sounds, soft. ABSENT: tenderness Gentrourinary exam: PRESENT: indwelling catheter Extremities exam: PRESENT: +2 edema - Lower extremities., other - Still with pitting edema to the pelvis/flank Neurological exam: PRESENT: alert, awake, oriented to person, oriented to place, oriented to situation, CN II-XII grossly intact, other - Very tired because he hardly slept last night. Psychiatric exam: PRESENT: appropriate affect, normal mood. ABSENT: agitated, anxious Focused psych exam: ABSENT: restlessness Results Laboratory Results: 08/17/18 04:59 08/17/18 04:59 08/17/18 08/17/18 08/17/18 04:50 04:59 04:59 WBC 15.3 H RBC 6.64 H Hgb 18.5 H D Hct 57.2 H MCV 86 MCH 27.9 MCHC 32.4 RDW 16.8 H Plt Count 92 L Seg Neutrophils % 85.0 H Lymphocytes % 5.5 L Monocytes % 9.0 Eosinophils % 0.2 Basophils % 0.3 Absolute Neutrophils 13.0 H Absolute Lymphocytes 0.8 Absolute Monocytes 1.4 Absolute Eosinophils 0.0 Absolute Basophils 0.0 Carbonic Acid 1.39 H HCO3/H2CO3 Ratio 25:1 ABG pH 7.50 H ABG pCO2 46.2 H ABG pO2 50.8 L ABG HCO3 34.9 H ABG O2 Saturation 88.6 L ABG Base Excess 9.9 FiO2 40% Sodium 135.8 L Potassium 4.3 Chloride 88 L Carbon Dioxide 35 H Anion Gap 13 BUN 47 H Creatinine 1.16 Est GFR ( Amer) > 60 Est GFR (Non-Af Amer) > 60 Glucose 230 H Calcium 8.3 L Magnesium Total Bilirubin 8.5 H AST 198 H ALT 111 H Alkaline Phosphatase 181 H Total Protein 5.9 L Albumin 3.0 L 08/17/18 04:59 WBC RBC Hgb Hct MCV MCH MCHC RDW Plt Count Seg Neutrophils % Lymphocytes % Monocytes % Eosinophils % Basophils % Absolute Neutrophils Absolute Lymphocytes Absolute Monocytes Absolute Eosinophils Absolute Basophils Carbonic Acid HCO3/H2CO3 Ratio ABG pH ABG pCO2 ABG pO2 ABG HCO3 ABG O2 Saturation ABG Base Excess FiO2 Sodium Potassium Chloride Carbon Dioxide Anion Gap BUN Creatinine Est GFR ( Amer) Est GFR (Non-Af Amer) Glucose Calcium Magnesium 2.0 Total Bilirubin AST ALT Alkaline Phosphatase Total Protein Albumin 08/08/18 08/08/18 08/08/18 13:52 13:52 15:50 Creatine Kinase 85 CK-MB (CK-2) 3.00 Troponin I 0.037 NT-Pro-B Natriuret Pep 60991 H 08/08/18 08/09/18 08/09/18 20:45 03:15 09:20 Creatine Kinase CK-MB (CK-2) Troponin I 0.036 0.045 0.031 NT-Pro-B Natriuret Pep 08/11/18 08/11/18 08/11/18 03:53 03:53 11:37 Creatine Kinase 30 L 29 L CK-MB (CK-2) 0.97 Troponin I 0.071 NT-Pro-B Natriuret Pep 08/11/18 08/11/18 08/11/18 11:37 19:05 19:05 Creatine Kinase 32 L CK-MB (CK-2) 0.97 0.93 Troponin I 0.067 0.080 NT-Pro-B Natriuret Pep 08/17/18 08/17/18 04:59 04:59 Creatine Kinase 200 H CK-MB (CK-2) 21.10 H Troponin I 13.300 NT-Pro-B Natriuret Pep Impressions: Renal Ultrasound 08/10/18 00:00 IMPRESSION: 1. Examination is very limited due to the patient's body habitus. The left kidney was not visualized. 2. No evidence of hydronephrosis on the right. 3. Bailey catheter present within the urinary bladder. 4. Incidentally mild to moderate right pleural effusion. Guidance Fluoroscopy 08/12/18 00:00 IMPRESSION: SUCCESSFUL PLACEMENT OF A 5 FR DUAL LUMEN 45 CM PICC IN THE LEFT BASILIC VEIN. Interventional Vascular Procedure 08/12/18 00:00 IMPRESSION: SUCCESSFUL PLACEMENT OF A 5 FR DUAL LUMEN 45 CM PICC IN THE LEFT BASILIC VEIN. PICC Line Insertion 08/12/18 00:00 IMPRESSION: SUCCESSFUL PLACEMENT OF A 5 FR DUAL LUMEN 45 CM PICC IN THE LEFT BASILIC VEIN. Abdomen/Pelvis CT 08/16/18 00:00 IMPRESSION: 1. Persistent but slightly improved pleural effusions. 2. Resolved ascites. 3. Fatty liver. Chest X-Ray 08/17/18 00:00 IMPRESSION: 1. Stable volume loss in the left lung base. 2. The tip of the left upper extremity PICC line catheter overlies the region of the superior vena cava. 3. Stable cardiac silhouette. Assessment & Plan - Diagnosis (1) Congestive heart failure Qualifiers: Heart failure type: right-sided Heart failure chronicity: acute Qualified Code(s): I50.811 - Acute right heart failure Is this a current diagnosis for this admission?: Yes Plan: The patient has been through aggressive successful diuresis. He was on dobutamine on the floor He is now on digoxin and Yann-Synephrine was added for his acute hypotension. On nonrebreather mask he is actually breathing comfo rtably. Dr. Blanc will be seeing the patient with the newly elevated troponin level. (2) Acute respiratory failure with hypoxia Is this a current diagnosis for this admission?: Yes Plan: The etiology of his acute onset of worsening shortness of breath last night is still not clear. He does have increased troponin so it could be cardiogenic at this point. His admission respiratory failure was cardiogenic as well. He requ ired BiPAP at that time but is stable on nonrebreather mask currently. (3) Liver failure without hepatic coma Qualifiers: Liver failure chronicity: acute Qualified Code(s): K72.00 - Acute and subacute hepatic failure without coma Is this a current diagnosis for this admission?: Yes Plan: Is liver enzymes bumped this morning from yesterday. He is nowhere near the elevated levels that he had on admission. CT scan revealed fatty liver but no evidence of an obstructive process. Continue to monitor function. Initially he was auto anticoagulated. His INR is down to 1.3 to. (4) Hypokalemia due to loss of potassium Is this a current diagnosis for this admission?: Yes Plan: He is now on 20 mEq of potassium 4 times a day to maintain normal serum potassium levels. Continue to monitor electrolytes. Adjust supplements as indicated. (5) Diabetes mellitus type 2 with complications Qualifiers: Diabetes mellitus terminal makeup operator insulin use: with terminal makeup operator use Qualified Code(s): E11.8 - Type 2 diabetes mellitus with unspecified complications; Z79.4 - shelter (current) use of insulin Is this a current diagnosis for this admission?: Yes Plan: The patient is now on a sliding scale. Half of his metformin (850 mg) has been added back based on the recovery of his renal function. He still has serum glucose readings over 200 for the last several Accu-Cheks. He may increase the aggressiveness of his sliding scale initially instead of adding back the second dose of metformin 850 mg. He is still taking p.o. and so we will continue the controlled carbohydrate/cardiac diet. (6) Thrombocytopenia Is this a current diagnosis for this admission?: Yes Plan: On Arixtra, the patient's platelet count is recovering. On admission his count was 207 and within 48 hours he was under 100. He has stayed under 100 consistently but is back in the 90s. No obvious evidence of spontaneous bleeding. (7) Hyperkalemia Is this a current diagnosis for this admission?: Yes Plan: Resolved with aggressive diuresis. (8) Acute renal failure Qualifiers: Acute renal failure type: unspecified Qualified Code(s): N17.9 - Acute kidney failure, unspecified Is this a current diagnosis for this admission?: Yes Plan: Renal failure has resolved. We will continue to monitor. (9) Morbid obesity with BMI of 40.0-44.9, adult Is this a current diagnosis for this admission?: Yes Plan: With aggressive diuresis his BMI is now down to 42. - Time Time Spent with patient: 35 or more minutes Medications reviewed and adjusted accordingly: Yes
[2018-08-17 11:27] LABS: CREATINE KINASE MB 20.5 ng/mL (<4.55)
[2018-08-17 11:33] LABS: TROPONIN I 15.8 ng/mL
[2018-08-17] MEDS ORDERED: NORMAL SALINE 500 ML IV ONE (12:00)
[2018-08-17] MEDS ORDERED: NORMAL SALINE 1000 ML 1,000 ML IV PRN (12:30)
--- NOTE | 2018-08-17 14:29 | RADIOLOGY REPORT (SQ) ---
EXAM DESCRIPTION: CHEST SINGLE VIEW COMPLETED DATE/TIME: 08/17/2018 2:18 pm REASON FOR STUDY: CHF COMPARISON: 08/17/2018 at 0726 hours. EXAM PARAMETERS: NUMBER OF VIEWS: One view. TECHNIQUE: Single frontal radiographic view of the chest acquired. RADIATION DOSE: NA LIMITATIONS: None. FINDINGS: LUNGS AND PLEURA: Scattered atelectasis in the left lung. No lobar infiltrate, masses or pneumothorax. No pleural effusion. MEDIASTINUM AND HILAR STRUCTURES: No masses. Contour normal. HEART AND VASCULAR STRUCTURES: Stable cardiomegaly. BONES: No acute findings. HARDWARE: PICC line. OTHER: No other significant finding. IMPRESSION: STABLE APPEARANCE. NO ACUTE RADIOGRAPHIC FINDING IN THE CHEST. TECHNICAL DOCUMENTATION: JOB ID: [id number] [employer]- All Rights Reserved Reading location - IP/workstation name: [email or web address]
[2018-08-17] MEDS ORDERED: MILRINONE LACTATE/D5W 100 ML IV PRN (16:14)
[2018-08-17 16:15] LABS: HEMATOCRIT 53.1 % (37.9-51.0); HEMOGLOBIN 16.8 g/dL (13.5-17.0); MEAN CORPUSCULAR HEMOGLOBIN 27.8 pg (27.0-33.4); MEAN CORPUSCULAR HGB CONC 31.6 g/dL (32.0-36.0); MEAN CORPUSCULAR VOLUME 88 fl (80-97); PLATELET COUNT 110 10^3/uL (150-450); RED BLOOD COUNT 6.03 10^6/uL (4.35-5.55); RED CELL DISTRIBUTION WIDTH 17.3 % (11.5-14.0); WHITE BLOOD COUNT 18.2 10^3/uL (4.0-10.5)
[2018-08-17] MEDS ORDERED: FUROSEMIDE INJ/PF 40 MG/4 ML SDV ONE (16:16)
--- NOTE | 2018-08-17 16:30 | EKG REPORT ---
SEVERITY:- ABNORMAL ECG - SINUS TACHYCARDIA MULTIFORM VENTRICULAR PREMATURE COMPLEXES FIRST DEGREE AV BLOCK LEFT ATRIAL ABNORMALITY LEFT BUNDLE BRANCH BLOCK : Confirmed by: Ingrid Blanc MD 17-Aug-2018 16:29:20
--- NOTE | 2018-08-17 16:32 | EKG REPORT ---
SEVERITY:- ABNORMAL ECG - SINUS RHYTHM VENTRICULAR PREMATURE COMPLEX LEFT BUNDLE BRANCH BLOCK FIRST DEGREE AV BLOCK : Confirmed by: Ingrid Blanc MD 17-Aug-2018 16:32:18
[2018-08-17 16:33] LABS: ALANINE AMINOTRANSFERASE 102 U/L (21-72); ALBUMIN 2.5 g/dL (3.5-5.0); ALKALINE PHOSPHATASE 187 U/L (38-126); ANION GAP 10 (5-19); ASPARTATE AMINO TRANSFERASE 230 U/L (17-59); BILIRUBIN,DIRECT 7.3 mg/dL (0.0-0.4); BILIRUBIN,TOTAL 9.3 mg/dL (0.2-1.3); BLOOD UREA NITROGEN 50 mg/dL (7-20); CALCIUM 7.7 mg/dL (8.4-10.2); CARBON DIOXIDE 34 mmol/L (22-30); CHLORIDE 85 mmol/L (98-107); CREATINE KINASE 252 U/L (55-170); POTASSIUM 4.4 mmol/L (3.6-5.0); SODIUM 129.4 mmol/L (137-145); TOTAL PROTEIN 5.2 g/dL (6.3-8.2)
[2018-08-17 16:45] LABS: CREATINE KINASE MB 19.8 ng/mL (<4.55)
[2018-08-17] MEDS ORDERED: FUROSEMIDE INJ/PF 40 MG/4 ML SDV IV ONE (16:45)
[2018-08-17 16:46] LABS: GLUCOSE 429 mg/dL (75-110)
[2018-08-17 16:50] LABS: TROPONIN I 21.6 ng/mL
[2018-08-17] MEDS: MILRINONE LACTATE/D5W 20 MG/100 ML RTUINJ IV PRN (17:34)
[2018-08-17] MEDS ORDERED: CLOPIDOGREL BISULFATE 300 MG TABLET ONE (19:00)
[2018-08-17] MEDS ORDERED: CLOPIDOGREL BISULFATE 300 MG TABLET PO ONE (19:00)
[2018-08-17] MEDS ORDERED: ASPIRIN 81 MG TABLET, CHEWABLE PO ONE (19:01)
[2018-08-17] MEDS ORDERED: LANSOPRAZOLE 30 MG TAB.RAP.DR PO ONE (19:02)
[2018-08-17] MEDS ORDERED: NORMAL SALINE 1000 ML 1,000 ML IV ONE (19:17)
--- NOTE | 2018-08-17 19:53 | PDOC TRANSFER SUMMARY ---
General Admission Date/PCP: 08/08/18 19:41 JOAQUIN GOTTLIEB MD Resuscitation Status: Full Code - Transfer Diagnosis (1) NSTEMI (non-ST elevated myocardial infarction) Is this a current diagnosis for this admission?: Yes Diagnosis Summary: The patient was seen by Dr. Anderson at 5:00 this morning. He had an acute onset of shortness of breath after being relatively stable for the last 4-5 days. He denied any chest pain or pressure. He denied diaphoresis but his gown was wet this morning. His troponin has kept increasing. It is now 21. He is on Arixtra because heparin because of drop in his platelets. I will give him 300 mg of Plavix now and 324 mg of chewable aspirin. I will also add Prevacid 30 mg twice daily for proton pump inhibition. I have discussed transfer to [facility]. I did speak with Dr. Donn Jasso the checkering machine operator collections assistant. This is not an ST elevation infarct and so he will go through the transfer process to the ICU. (2) Congestive heart failure Is this a current diagnosis for this admission?: Yes Diagnosis Summary: The patient was aggressively diuresed over the first week of his hospitalization. Over 20 L of fluid was removed. Prior to transfer to the ICU he was on dobutamine on the floor. Upon transfer to the ICU this morning he has exhibited decreased urine output. He was started on milrinone to improve cardiac function and is on Yann-Synephrine for hypotension. He did have an echocardiogram on the day of admission. His ejection fraction is approximately 25%. Severe global hypokinesis of the left ventricle was noted. He has dilatation of the right ventricle. Right and left atria are dilated as well. He also exhibits mild mitral regurgitation Despite his congestive heart failure I am going to give him a fluid bolus because of the decreased urine output and hypotension. (3) Acute respiratory failure with hypoxia Is this a current diagnosis for this admission?: Yes Diagnosis Summary: The patient required BiPAP for the first several days. As his diuresis progressed he was able to transition to nasal cannula. With the acute onset of increased shortness of breath this morning he is on a nonrebreather mask but does not report any difficulty breathing. He did receive a complete course of antibiotic therapy for suspected pneumonia. (4) Liver failure without hepatic coma Is this a current diagnosis for this admission?: Yes Diagnosis Summary: Combination of passive congestion and steatohepatitis is the suspected causes of his elevated transaminases. CT scan of the abdomen did not show any obstructive process or dilated ducts. His transaminases have improved. Unfortunately today his AST is back up to 230 (813 on admission with a enrique of 86 2 days ago) and his total bilirubin is up to 9.3 with direct bilirubin 7.3. ALT has shown consistent improvement and is down to 102 from 600. Alkaline phosphatase is been slowly increasing. He was 92 at admission and is up to 187. (5) Hypokalemia due to loss of potassium Is this a current diagnosis for this admission?: Yes Diagnosis Summary: At the time of admission he was hyperkalemic but with his diuresis of over 20 L he now is on a potassium supplement. His potassium is currently normal. (6) Diabetes mellitus type 2 with complications Is this a current diagnosis for this admission?: Yes Diagnosis Summary: His glucoses were reasonably controlled. This morning with his acute episode his glucose was over 400. His serum sodium was low but because of the hyperglycemia it corrected to 134. Because he was doing well he was started ba ck on metformin 850 mg daily (home dose was twice a day) and he is also on sliding scale. (7) Thrombocytopenia Is this a current diagnosis for this admission?: Yes Diagnosis Summary: The patient exhibited an acute drop in his platelet count after the first 2 days of Lovenox. He was transitioned over to Arixtra 2.5 mg daily. His platelet count has been slowly recovering. At 4 PM today it was back to over 100. (8) Hyperkalemia Is this a current diagnosis for this admission?: Yes Diagnosis Summary: Resolved. See above (9) Acute renal failure Is this a current diagnosis for this admission?: Yes Diagnosis Summary: Acute renal failure at the time of admission. The patient was seen by n ephrology. They believe it was secondary to his heart failure. His renal function has improved dramatically. Acute kidney injury has resolved. Unfortunately today we have noticed a decrease in his urine output. He received a liter of saline earlier today and I have asked for another liter of saline as he is likely intravascularly depleted. (10) Morbid obesity with BMI of 40.0-44.9, adult Is this a current diagnosis for this admission?: Yes Diagnosis Summary: He has experienced a drop in his BMI from greater than 45 down to 42 because of the tremendous diuresis. (11) Pleural effusion Is this a current diagnosis for this admission?: Yes Diagnosis Summary: On admission the patient had bilateral pleural effusions. With the aggressive diuresis these have improved. (12) Ascites Is this a current diagnosis for this admission?: Yes Diagnosis Summary: The patient had ascites on admission. With the aggressive diuresis the ascites seems to have resolved. - Transfer Medications Home Medications: Furosemide [Lasix 20 mg Tablet] 20 mg PO BID 08/09/18 Hum Insulin NPH/Reg Insulin Hm [Novolin 70-30 100 Unit/ml Vial] 22 units SQ BID 08/09/18 Metformin HCl 850 mg PO DAILY 08/09/18 Paroxetine HCl [Paxil 20 mg Tablet] 20 mg PO DAILY 08/09/18 Potassium Chloride 20 meq PO DAILY 08/09/18 Transfer Medications: Current Medications Acetaminophen (Tylenol 325 Mg Tablet) 650 mg PO Q4HP PRN PRN Reason: FOR PAIN OR TEMP Stop: 09/07/18 19:01 Albuterol (Ventolin 0.083% Neb 2.5 Mg/3 Ml Ampul) 2.5 mg NEB RTQ6HP PRN PRN Reason: SHORTNESS OF BREATH Stop: 09/07/18 19:01 Last Admin: 08/09/18 08:16 Dose: 2.5 mg Documented by: Aspirin (Aspirin 81 Mg Chewable Tablet) 324 mg PO NOW ONE Stop: 08/17/18 19:02 Calcium Carbonate (Tums Chewable 500 Mg Tab.Chew) 500 mg PO Q6HP PRN PRN Reason: HEARTBURN Stop: 09/11/18 15:41 Last Admin: 08/12/18 16:05 Dose: 500 mg Documented by: Clopidogrel Bisulfate (Plavix 300 Mg Tablet) 300 mg PO NOW ONE Stop: 08/17/18 19:01 Dextrose (Dextrose Inj 50% Syringe (25 Gm/50 Ml)) 12.5 gm IV PRN PRN; Protocol PRN Reason: FOR BG 50-69 IN ALERT PATIENT Stop: 09/07/18 19:35 Dextrose (Dextrose Inj 50% Syringe (25 Gm/50 Ml)) 25 gm IV PRN PRN; Protocol PRN Reason: PER PROTOCOL Stop: 09/07/18 19:35 Fondaparinux (Arixtra Inj 2.5 Mg/0.5 Ml Disp.Syrin) 2.5 mg SUBCUT DAILY [facility] Stop: 09/09/18 09:59 Last Admin: 08/17/18 09:29 Dose: Not Given Documented by: Glucagon (Glucagen Inj 1 Mg Vial) 1 mg IM PRN PRN; Protocol PRN Reason: Evaluate for BG < 70 Stop: 09/07/18 19:35 Glucose (Glutose 40% Gel 15 Gm Tube) 30 gm PO PRN PRN; Protocol PRN Reason: FOR BG < 50 IN ALERT PATIENT Stop: 09/07/18 19:35 Glucose (Glutose 40% Gel 15 Gm Tube) 15 gm PO PRN PRN; Protocol PRN Reason: FOR BG 50-69 IN ALERT PATIENT Stop: 09/07/18 19:35 Hard Fat/Phenylephrine 40 mg/ (Dextrose) 250 mls @ 0 mls/hr IV CONTINUOUS PRN; Protocol PRN Reason: THIS MED IS NOT "PRN" Stop: 09/16/18 08:29 Last Titration: 08/17/18 13:00 Dose: 100 mcg/min, 37.5 mls/hr Documented by: Milrinone Lactate/Dextrose (Primacor Rtu 20 Mg-D5w 100 Ml Premix Bag) 20 mg in 100 mls @ 0 mls/hr IV CONTINUOUS PRN; Protocol PRN Reason: THIS MED IS NOT "PRN" Stop: 09/16/18 16:15 Last Admin: 08/17/18 17:34 Dose: 0.25 mcg/kg/min, 10.13 mls/hr Documented by: Insulin Human Lispro (Humalog Insulin 100 Unit/1 Ml 3 Ml Vial) 0 - 12 unit SUBCUT ACHSP PRN; Protocol PRN Reason: PER PROTOCOL Stop: 09/16/18 10:18 Last Admin: 08/17/18 16:14 Dose: 6 unit Documented by: Lansoprazole (Prevacid 30 Mg Odt Tablet) 30 mg PO NOW ONE Stop: 08/17/18 19:03 Metformin HCl (Glucophage 850 Mg Tablet) 850 mg PO DAILY [facility] Stop: 09/12/18 09:59 Last Admin: 08/17/18 09:29 Dose: Not Given Documented by: Potassium Chloride (Klor-Con 10 Meq Capsule Er) 20 meq PO QID [facility] Stop: 09/11/18 17:59 Last Admin: 08/17/18 17:36 Dose: 20 meq Documented by: Sodium Chloride (Saline Flush 2.5 Ml Monoject Prefil Syrin) 2.5 ml IV Q8 ABRAHAM Stop: 09/07/18 21:59 Last Admin: 08/17/18 13:25 Dose: Not Given Documented by: - Allergies Allergies/Adverse Reactions: amoxicillin [From Augmentin] Adverse Reaction (Mild, Verified 08/08/18 15:35) Nausea clavulanic acid [From Augmentin] Adverse Reaction (Mild, Verified 08/08/18 15:35) Nausea - Diet/Activity Discharge Diet: Cardiac, Diabetic Hospital Course Hospital Course: The patient was admitted on August 08. He presented with a progressive worsening of breathing with increasing edema that has been slowly increasing over the last weeks if not months. Echocardiogram showed a depressed ejection fraction at 25%. He also had acute kidney injury and elevated transaminases without hepatic coma. He was treated with furosemide and Zaroxolyn as well as dobutamine. Over the course of a week he continued to diurese. His Zaroxolyn was discontinued and his furosemide was slowly decreased. He was successfully diuresed at least 20 L. He had weaned off of the BiPAP that he required admission and was down to nasal cannula. His blood pressure had been stable until early this morning. His Accu-Cheks were exhibiting improved control until early this morning. Unfortunately at 5 AM this morning he had an acute increase in his shortness of breath. He denies chest pain. He has been having hiccups. He denies diaphoresis but his gown was wet. After his initial episode of shortness of breath his breathing became more comfortable after transition to the intensive care unit. Unfortunately today his troponins (negative on admission) are now positive. He went from 13-15 and at 4 PM his troponin was 21. He has a left bundle branch block. I did discuss the case with cardiology at [facility] and it was felt that he is having a non-ST elevation myocardial infarction. Because of this I have given him 300 mg of Plavix as well as for chewable baby aspirin. I have started him on Prevacid for proton pump inhibition. His platelet count is over 100 and he has been on Arixtra 2.5 mg daily. We will continue this. NSTEMI-continue Arixtra 2.5 mg daily. Plavix 300 mg and aspirin 324 mg chewable were administered to the patient. I am waiting for confirmation of transfer to [facility] for ongoing treatment. He is still on Yann-Synephrine for low blood pressure and he was started on milrinone today for his depressed ejection fraction. Acute kidney injury-his acute kidney injury resolved over the course of the week . This is a combination of aggressive diuresis and in response to the dobutamine. Unfortunately from this morning his urine output has been limited. He did receive a bolus of fluid earlier today and this did not make a significant difference in his urine output. I have ordered another liter of f luid within the last hour to see if this changes his urine output. Diabetes mellitus type 2-when the acute kidney injury resolved up with the patient back on half of his home dose of metformin. He takes 850 mg twice daily at home and I started 850 mg once daily and he was on a carbohydrate controlled cardiac diet. He was on a sliding scale. I increased the dosing. He was having reasonable glucose control until this morning. Since this morning his sugars have improved somewhat. His Accu-Chek at 4 PM was down to 222. Hyponatremia-the patient developed decreased sodium levels. He exhibited a sodium of 129 this morning but corrected for his hyperglycemia it was 134. Abnormal liver function-the patient exhibited elevated transaminases on admission. His prothrombin time was elevated without the use of anticoagulants. CT scan revealed diffuse fatty liver but no obstructive lesions in the biliary tree. Details of changes outlined above. Because of this acute change in condition with decreased urine output, increasing troponin and hypotension I have initiated transfer to [facility]. We are waiting confirmation of bed availability. Physical Exam Vital Signs: Temp Pulse Resp BP Pulse Ox 97.4 F 100 18 101/59 L 100 08/17/18 18:39 08/17/18 18:39 08/17/18 18:39 08/17/18 18:39 08/17/18 18:39 Intake & Output 08/16/18 08/17/18 08/18/18 06:59 06:59 06:59 Intake Total 1253 1134 338 Output Total 1500 995 158 Balance -247 139 180 Weight 136 kg 135 kg General appearance: PRESENT: cooperative, mild distress, well-developed Head exam: PRESENT: normocephalic Eye exam: PRESENT: EOMI, scleral icterus Ear exam: PRESENT: normal external ear exam Mouth exam: PRESENT: moist, tongue midline Respiratory exam: PRESENT: rales - Bilateral bases, symmetrical, unlabored. ABSENT: accessory muscle use, chest wall tenderness, crackles, rhonchi, wheezes Cardiovascular exam: PRESENT: RRR, +S1, +S2, systolic murmur GI/Abdominal exam: PRESENT: normal bowel sounds, soft. ABSENT: tenderness Extremities exam: PRESENT: +2 edema, other - Still with pitting edema to the hips Neurological exam: PRESENT: alert, awake, oriented to person, oriented to place, oriented to time, oriented to situation, CN II-XII grossly intact Psychiatric exam: PRESENT: appropriate affect. ABSENT: agitated, anxious Focused psych exam: ABSENT: restlessness Results Laboratory Results: 08/17/18 15:55 08/17/18 15:55 08/17/18 08/17/18 08/17/18 04:50 04:59 04:59 WBC 15.3 H RBC 6.64 H Hgb 18.5 H D Hct 57.2 H MCV 86 MCH 27.9 MCHC 32.4 RDW 16.8 H Plt Count 92 L Seg Neutrophils % 85.0 H Lymphocytes % 5.5 L Monocytes % 9.0 Eosinophils % 0.2 Basophils % 0.3 Absolute Neutrophils 13.0 H Absolute Lymphocytes 0.8 Absolute Monocytes 1.4 Absolute Eosinophils 0.0 Absolute Basophils 0.0 Carbonic Acid 1.39 H HCO3/H2CO3 Ratio 25:1 ABG pH 7.50 H ABG pCO2 46.2 H ABG pO2 50.8 L ABG HCO3 34.9 H ABG O2 Saturation 88.6 L ABG Base Excess 9.9 FiO2 40% Sodium 135.8 L Potassium 4.3 Chloride 88 L Carbon Dioxide 35 H Anion Gap 13 BUN 47 H Creatinine 1.16 Est GFR ( Amer) > 60 Est GFR (Non-Af Amer) > 60 Glucose 230 H Calcium 8.3 L Magnesium Total Bilirubin 8.5 H AST 198 H ALT 111 H Alkaline Phosphatase 181 H Total Protein 5.9 L Albumin 3.0 L 08/17/18 08/17/18 08/17/18 04:59 15:55 15:55 WBC 18.2 H RBC 6.03 H Hgb 16.8 Hct 53.1 H MCV 88 MCH 27.8 MCHC 31.6 L RDW 17.3 H Plt Count 110 L Seg Neutrophils % Lymphocytes % Monocytes % Eosinophils % Basophils % Absolute Neutrophils Absolute Lymphocytes Absolute Monocytes Absolute Eosinophils Absolute Basophils Carbonic Acid HCO3/H2CO3 Ratio ABG pH ABG pCO2 ABG pO2 ABG HCO3 ABG O2 Saturation ABG Base Excess FiO2 Sodium 129.4 L Potassium 4.4 Chloride 85 L Carbon Dioxide 34 H Anion Gap 10 BUN 50 H Creatinine 1.66 H Est GFR ( Amer) 50 L Est GFR (Non-Af Amer) 41 L Glucose 429 H* Calcium 7.7 L Magnesium 2.0 1.8 Total Bilirubin 9.3 H AST 230 H ALT 102 H Alkaline Phosphatase 187 H Total Protein 5.2 L Albumin 2.5 L 08/08/18 08/08/18 08/08/18 13:52 13:52 15:50 Creatine Kinase 85 CK-MB (CK-2) 3.00 Troponin I 0.037 NT-Pro-B Natriuret Pep 12448 H 08/08/18 08/09/18 08/09/18 20:45 03:15 09:20 Creatine Kinase CK-MB (CK-2) Troponin I 0.036 0.045 0.031 NT-Pro-B Natriuret Pep 08/11/18 08/11/18 08/11/18 03:53 03:53 11:37 Creatine Kinase 30 L 29 L CK-MB (CK-2) 0.97 Troponin I 0.071 NT-Pro-B Natriuret Pep 08/11/18 08/11/18 08/11/18 11:37 19:05 19:05 Creatine Kinase 32 L CK-MB (CK-2) 0.97 0.93 Troponin I 0.067 0.080 NT-Pro-B Natriuret Pep 08/17/18 08/17/18 08/17/18 04:59 04:59 10:45 Creatine Kinase 200 H 224 H CK-MB (CK-2) 21.10 H Troponin I 13.300 NT-Pro-B Natriuret Pep 08/17/18 08/17/18 08/17/18 10:45 15:55 15:55 Creatine Kinase 252 H CK-MB (CK-2) 20.50 H 19.80 H Troponin I 15.800 21.600 NT-Pro-B Natriuret Pep Impressions: Renal Ultrasound 08/10/18 00:00 IMPRESSION: 1. Examination is very limited due to the patient's body habitus. The left kidney was not visualized. 2. No evidence of hydronephrosis on the right. 3. Bailey catheter present within the urinary bladder. 4. Incidentally mild to moderate right pleural effusion. Guidance Fluoroscopy 08/12/18 00:00 IMPRESSION: SUCCESSFUL PLACEMENT OF A 5 FR DUAL LUMEN 45 CM PICC IN THE LEFT BASILIC VEIN. Interventional Vascular Procedure 08/12/18 00:00 IMPRESSION: SUCCESSFUL PLACEMENT OF A 5 FR DUAL LUMEN 45 CM PICC IN THE LEFT BASILIC VEIN. PICC Line Insertion 08/12/18 00:00 IMPRESSION: SUCCESSFUL PLACEMENT OF A 5 FR DUAL LUMEN 45 CM PICC IN THE LEFT BASILIC VEIN. Abdomen/Pelvis CT 08/16/18 00:00 IMPRESSION: 1. Persistent but slightly improved pleural effusions. 2. Resolved ascites. 3. Fatty liver. Chest X-Ray 08/17/18 14:03 IMPRESSION: STABLE APPEARANCE. NO ACUTE RADIOGRAPHIC FINDING IN THE CHEST. Plan Discharge Plan: We are in the process of a transfer to [facility]. I spoken to the transfer center. Because it is not an ST elevation myocardial infarction he will go through the regular transfer system. Time Spent: Greater than 30 Minutes
--- NOTE | 2018-08-17 20:25 | Progress Note ---
Provider Note Provider Note: CARDIOLOGY PROGRESS NOTES by Dr. Ingrid Blanc on 08/17/2018. Note that the patient was seen in the morning and again in the eveNing around 7 PM. SUBJECTIVE: When I reexamined the patient yesterday evening the patient's urine output was decreasing, and his leg edema had increased to 1+ and a the patient's physical examination showed probably bilateral pleural effusions which seem to have increased. In view of this I started the patient on dobutamine to see if this will help increase his cardiac output and hence his urine output. But the patient became hypotensive with this. The dobutamine drip was discontinued. And the patient was started on dopamine for support of his blood pressure. He also had an episode of sudden hypoxemia which seemed to be slightly improved to treatment with an increase in oxygen delivery to 4-5 L/min. But with the starting of dopamine the patient's heart rate went up to 160-180. Hence the patient was transferred to ICU after DECK MATE was called on the patient, and the patient's dopamine drip was discontinued and the patient was placed on Yann- Synephrine which brought did bring up the blood pressure. The patient's EKG is difficult to interpret but it seemed that the patient seem to be in sinus rhythm with first-degree AV block and left bundle branch block pattern. In the meantime the patient's cardiac enzymes came back significantly elevated troponin and CPK-MB's, although the patient denies any chest pain or discomfort. The patient's urine output also started decreasing at this time. Note that the patient's platelets have increased from 92,000 early this morning to 110,000. There is no petechia or ecchymosis suggestive of spontaneous bleeding due to low platelets. Note that the patient's white count is elevated and with a left shift. The patient states that his diarrhea is much less, and he has no abdominal pain. PHYSICAL EXAMINATION: The patient is morbidly obese, although he denies any respiratory distress, he does seem to be in mild to moderate respiratory difficulty. There is no definite accessory muscles of respiration in use. 08/17/18 08/17/18 08/17/18 16:47 17:55 17:58 Temperature 97.2 F Temperature Axillary Source Pulse Rate 99 Heart Rate ( 100 Monitors) Respiratory 17 20 24 H Rate Blood Pressure Blood Pressure 96/71 L 114/58 L [Right Upper Arm] Blood Pressure Mean Blood Pressure 79 76 Mean [Right Upper Arm] O2 Sat by Pulse 100 98 Oximetry Oxygen Delivery Nasal Cannula Non-Rebreather Method ( includes room air) Oxygen Flow 15 15 Rate 08/17/18 17:59 Temperature Temperature Source Pulse Rate Heart Rate ( 97 Monitors) Respiratory 19 Rate Blood Pressure 96/79 L Blood Pressure [Right Upper Arm] Blood Pressure 84 Mean Blood Pressure Mean [Right Upper Arm] O2 Sat by Pulse 100 Oximetry Oxygen Delivery Method ( includes room air) Oxygen Flow Rate HEAD: Is atraumatic normocephalic. EYES: His pupils are equal round regular reactive to light accommodation there is no conjunctival pallor there is no scleral icterus. ENT: Is negative. NECK: Supple. There is increase in his JVD compared with yesterday's exam. Carotids are equal there is no bruit. There is no lymphadenopathy. There is no goiter. LUNGS: Shows absent breath sounds and dullness in both the bases. This area of dullness seems to be much more increased compared to yesterday's exam. Rest of the lungs are clear there is no rales of CHF today. There is no chest wall tenderness. S1-S2 is heard S1 is of normal intensity. There is no S3 gallop there is no S4 gallop. There is systolic murmur of mitral regurgitation and tricuspid regurgitation present. There is no murmur of aortic stenosis or aortic regurgitation. There is no rub. Abdomen: Is obese. Nontender. Bowel sounds are well heard. There is no hepatosplenomegaly. EXTREMITIES: Femorals are deep. Femorals are diminished. There is no femoral bruits. Leg pulses are diminished. There is 1+ pedal edema. There is no DVT or cellulitis. There is no calf tenderness. There is no cyanosis or clubbing. ROSE GROWER: The patient is conscious awake alert oriented x3 with no focal deficits. PSYCHIATRIC: The patient judgment and insight are intact his affect is normal. 08/17/18 08/17/18 08/17/18 04:50 04:59 04:59 WBC 15.3 H RBC 6.64 H Hgb 18.5 H D Hct 57.2 H MCV 86 MCH 27.9 MCHC 32.4 RDW 16.8 H Plt Count 92 L Seg Neutrophils % 85.0 H Lymphocytes % 5.5 L Monocytes % 9.0 Eosinophils % 0.2 Basophils % 0.3 Absolute Neutrophils 13.0 H Absolute Lymphocytes 0.8 Absolute Monocytes 1.4 Absolute Eosinophils 0.0 Absolute Basophils 0.0 PT INR Carbonic Acid 1.39 H HCO3/H2CO3 Ratio 25:1 ABG pH 7.50 H ABG pCO2 46.2 H ABG pO2 50.8 L ABG HCO3 34.9 H ABG Total CO2 36.3 H ABG O2 Saturation 88.6 L ABG Base Excess 9.9 FiO2 40% Sodium 135.8 L Potassium 4.3 Chloride 88 L Carbon Dioxide 35 H Anion Gap 13 BUN 47 H Creatinine 1.16 Est GFR (Non-Af Amer) > 60 Glucose 230 H Calcium 8.3 L Magnesium Total Bilirubin 8.5 H Direct Bilirubin 6.2 H Neonat Total Bilirubin Not Reportable Neonat Direct Bilirubin Not Reportable Neonat Indirect Bili Not Reportable AST 198 H ALT 111 H Alkaline Phosphatase 181 H Creatine Kinase CK-MB (CK-2) Troponin I Total Protein 5.9 L Albumin 3.0 L Digoxin 08/17/18 08/17/18 08/17/18 04:59 04:59 10:45 WBC RBC Hgb Hct MCV MCH MCHC RDW Plt Count Seg Neutrophils % Lymphocytes % Monocytes % Eosinophils % Basophils % Absolute Neutrophils Absolute Lymphocytes Absolute Monocytes Absolute Eosinophils Absolute Basophils PT 17.0 H INR 1.32 Carbonic Acid HCO3/H2CO3 Ratio ABG pH ABG pCO2 ABG pO2 ABG HCO3 ABG Total CO2 ABG O2 Saturation ABG Base Excess FiO2 Sodium Potassium Chloride Carbon Dioxide Anion Gap BUN Creatinine Est GFR (Non-Af Amer) Glucose Calcium Magnesium Total Bilirubin Direct Bilirubin Neonat Total Bilirubin Neonat Direct Bilirubin Neonat Indirect Bili AST ALT Alkaline Phosphatase Creatine Kinase 224 H CK-MB (CK-2) 21.10 H Troponin I 13.300 Total Protein Albumin Digoxin 08/17/18 08/17/18 08/17/18 10:45 10:45 15:55 WBC RBC Hgb Hct MCV MCH MCHC RDW Plt Count Seg Neutrophils % Lymphocytes % Monocytes % Eosinophils % Basophils % Absolute Neutrophils Absolute Lymphocytes Absolute Monocytes Absolute Eosinophils Absolute Basophils PT INR Carbonic Acid HCO3/H2CO3 Ratio ABG pH ABG pCO2 ABG pO2 ABG HCO3 ABG Total CO2 ABG O2 Saturation ABG Base Excess FiO2 Sodium 129.4 L Potassium 4.4 Chloride 85 L Carbon Dioxide 34 H Anion Gap 10 BUN 50 H Creatinine 1.66 H Est GFR (Non-Af Amer) 41 L Glucose 429 H* Calcium 7.7 L Magnesium 1.8 Total Bilirubin 9.3 H Direct Bilirubin 7.3 H Neonat Total Bilirubin Not Reportable Neonat Direct Bilirubin Not Reportable Neonat Indirect Bili Not Reportable AST 230 H ALT 102 H Alkaline Phosphatase 187 H Creatine Kinase 252 H CK-MB (CK-2) 20.50 H Troponin I 15.800 Total Protein 5.2 L Albumin 2.5 L Digoxin 1.64 08/17/18 08/17/18 15:55 15:55 WBC 18.2 H RBC 6.03 H Hgb 16.8 Hct 53.1 H MCV 88 MCH 27.8 MCHC 31.6 L RDW 17.3 H Plt Count 110 L Seg Neutrophils % Lymphocytes % Monocytes % Eosinophils % Basophils % Absolute Neutrophils Absolute Lymphocytes Absolute Monocytes Absolute Eosinophils Absolute Basophils PT INR Carbonic Acid HCO3/H2CO3 Ratio ABG pH ABG pCO2 ABG pO2 ABG HCO3 ABG Total CO2 ABG O2 Saturation ABG Base Excess FiO2 Sodium Potassium Chloride Carbon Dioxide Anion Gap BUN Creatinine Est GFR (Non-Af Amer) Glucose Calcium Magnesium Total Bilirubin Direct Bilirubin Neonat Total Bilirubin Neonat Direct Bilirubin Neonat Indirect Bili AST ALT Alkaline Phosphatase Creatine Kinase CK-MB (CK-2) 19.80 H Troponin I 21.600 Total Protein Albumin Digoxin EKG: The first EKG shows sinus rhythm with first-degree AV block, left bundle branch block pattern. His subsequent EKG shows sinus rhythm with ectopics and first-degree AV block with left bundle branch block pattern, but there is significantly elevated ST elevation in the precordial leads. This is suspicious for an acute MO.. The patient's chest x-ray: Shows cardiomegaly, and bilateral pleural effusions. No definite CHF on the chest x-ray. His 24-hour intake is 1134 mL, output is 9 and 95 mL. This morning up to now the patient has been oliguric, with dark urine. IMPRESSION/RECOMMENDATION: 1. Acute myocardial infarction, with elevated troponin I and CPK-MB. Non-ST elevation MO versus ST elevation MO in view of the significant ST segment elevation in the patient's left bundle branch block rhythm. Would strongly recommend transfer to tertiary care center since the patient has multiple significant comorbidities. 2. Biventricular heart failure. Note at present there is not much response to IV Lasix. We will try milrinone to see if this will help the patient to increase his cardiac output and therefore increase his urine output. 3. HYPOTENSION: Possibly secondary to cardiogenic shock with also the patient having septic shock. Continue patient's Yann-Synephrine at 100 mcg/min will continue antibiotics. 4. Bilateral increasing pleural effusions? Underlying pneumonia. Continue antibiotics continue oxygen delivery with a nonrebreather mask. Note that the patient's ABG shows that the patient is hypoxemic and hypercapnic. 5. Paroxysmal atrial fibrillation: Later would jen recommend determination for chronic anticoagulation therapy, once the platelet,. Also later would consider beta-blockers if blood pressure permits, with the patient being off pressors. 6. Thrombocytopenia: Platelet count is improving.? Etiology. Most likely is related to sepsis. 7. Cardiomyopathy: Etiology to be determined. In view of the patient's elevated troponin I the patient would probably need a cardiac catheterization to define coronary anatomy. 8. Abnormal liver function tests: Most likely secondary to hepatic congestion due to right heart failure. 9. Moderate pulmonary hypertension: The right ventricle systolic pressure may have been underestimated, due to poor imaging technique. 10. Morbid obesity. Note medications reviewed. Medications adjusted, and new medications added. Medical decision making is of high complexity. Discussed the management plan with the attending physician on the case. Would recommend transfer the patient to a tertiary care center with a multi-speciality consultants available. Note 50 minutes spent on this patient, with more than 50% time spent in direct patient care. As per attending physician, the patient has been accepted by [facility]. Hence we will sign off the case. Will be available to address any problems/complications that may arise until the patient is transferred out of this facility.
--- NOTE | 2018-08-17 23:35 | EKG REPORT ---
SEVERITY:- ABNORMAL ECG - SINUS TACHYCARDIA MULTIFORM VENTRICULAR PREMATURE COMPLEXES LEFT BUNDLE BRANCH BLOCK FIRST DEGREE AV BLOCK : Confirmed by: Ingrid Blanc MD 17-Aug-2018 23:34:40
--- NOTE | 2018-08-17 23:36 | EKG REPORT ---
SEVERITY:- ABNORMAL ECG - MULTIFORM VENTRICULAR PREMATURE COMPLEXES PROBABLE LEFT ATRIAL ABNORMALITY LEFT BUNDLE BRANCH BLOCK SINUS RHYTHM WITH FIRST DEGREE AV BLOCK : Confirmed by: Ingrid Blanc MD 17-Aug-2018 23:35:20
[2018-08-18] MEDS: MILRINONE LACTATE/D5W 20 MG/100 ML RTUINJ IV PRN (00:51)
[2018-08-18 02:26] VITALS: BP 90/64
[2018-08-18 10:59] LABS: HEMOGLOBIN 18.5 g/dL (13.5-17.0)
== END 2018-08-18 02:23 | disposition short-term general hospital (02) | DRG 280 ==
LOC: ER 13:27 → EH 19:41 → 3N 21:21 → ICU 08-17 05:07
PROVIDERS: ADMIT Hospitalist; ATTEND Hospitalist
PROC: 5A09457 Assistance with Respiratory Ventilation, 24-96 Consecutive Hours, Continuous Positive Airway Pressure (ICD-10-PCS; principal; 2018-08-08)
PROC: B51NZZA Fluoroscopy of Left Upper Extremity Veins, Guidance (ICD-10-PCS; 2018-08-12)
PROC: 05HY33Z Insertion of Infusion Device into Upper Vein, Percutaneous Approach (ICD-10-PCS; 2018-08-12)
PROC: B54NZZA Ultrasonography of Left Upper Extremity Veins, Guidance (ICD-10-PCS; 2018-08-12)
DX: I50.811 Acute right heart failure (principal); J18.1 Lobar pneumonia, unspecified organism; I21.4 Non-ST elevation (NSTEMI) myocardial infarction; J96.01 Acute respiratory failure with hypoxia; K72.00 Acute and subacute hepatic failure without coma; N17.9 Acute kidney failure, unspecified; R18.8 Other ascites; Z68.42 Body mass index [BMI] 45.0-49.9, adult; D69.6 Thrombocytopenia, unspecified; E87.5 Hyperkalemia; E66.01 Morbid (severe) obesity due to excess calories; I44.7 Left bundle-branch block, unspecified; E11.51 Type 2 diabetes mellitus with diabetic peripheral angiopathy without gangrene; I27.20 Pulmonary hypertension, unspecified; E11.22 Type 2 diabetes mellitus with diabetic chronic kidney disease; F32.9 Major depressive disorder, single episode, unspecified; N18.9 Chronic kidney disease, unspecified; K21.9 Gastro-esophageal reflux disease without esophagitis; I87.2 Venous insufficiency (chronic) (peripheral); E87.6 Hypokalemia; I48.0 Paroxysmal atrial fibrillation; I95.9 Hypotension, unspecified; I44.0 Atrioventricular block, first degree; Z79.899 Other long term (current) drug therapy; Z79.4 Long term (current) use of insulin; Z79.84 Long term (current) use of oral hypoglycemic drugs; Z88.1 Allergy status to other antibiotic agents; Z89.411 Acquired absence of right great toe; Z87.891 Personal history of nicotine dependence
CPT/HCPCS: 36415; 36569; 71045; 74177; 76770; 76937; 77001; 80048; 80053; 80061; 80069; 80076; 80162; 81001; 82550; 82553; 82803; 82962; 83036; 83605; 83735; 83880; 84100; 84132; 84439; 84443; 84481; 84484; 85025; 85027; 85610; 87040; 87086; 87493; 93005; 93010; 93306; 94660; 96361; 96365; 96375; 99285; C1751; G8978-GP; G8979-GP; J0610; J1160; J1250; J1265; J1642; J1652; J1815; J1940; J2260; J2370; J2543; J3480; J3490; J7030; J7040; J7060